=== PATIENT | male | born 1995 | race Caucasian/White ===

== ENCOUNTER 2025-03-18 09:19 | Emergency (ER) | payer OTHER, SELFPAY ==
[2025-03-18 09:32] VITALS: BP 141/99; PULSE 71; RESP 16; TEMP 36.3; O2SAT 99
--- NOTE | 2025-03-18 10:34 | ED_ITS ---
HPI - General Adult General Chief complaint: Recheck/Abnormal Lab/Rx Stated complaint: NEEDS MED REFILL Time Seen by Provider: 03/18/25 10:15 Source: patient and RN notes reviewed Mode of arrival: ambulatory Limitations: no limitations History of Present Illness HPI narrative: Patient presents today requesting a refill of his 5mg oxycodone. He has a very large ureteral stone that is due to be removed in 4 days by urology and last week was prescribed some 5 mg Oxycodone #8. He was given a small refill by his PCP as well. States his urologist was supposed to give him a refill yesterday before the weekend, but did not. He has attempted to call, but the recording says that pain medication refills will not be sent in after hours. States that due to his impending surgery and elevated liver enzymes, he has been instructed to not take any NSAIDs or tylenol containing products, only prescribed pain medications. 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 Related Data Home Medications ?Medication ?Instructions ?Recorded ?Confirmed ?Last Taken ?Type oxycodone 5 mg tablet 5 mg PO HS 03/15/25 03/18/25 Unknown History tamsulosin 0.4 mg capsule 0.4 mg PO DAILY 03/15/25 Unknown History telmisartan 20 mg tablet 20 mg PO DAILY 03/15/2503/04 Unknown History Allergies Allergy/AdvReac Type Severity Reaction Status Date / Time No Known Allergies Allergy Verified 03/18/25 09:36 [facility] Social History Social History (Reviewed 03/18/25 @ 13:18 by Roselia Wilson, ASSAULT AMPHIBIOUS VEHICLE OFFICER, PATIENT FINANCIAL ADVOCATE) Smoking status: Never smoker Alcohol intake: current Drinks per week: 2 Living arrangements: with family Spiritual care concerns: No Comments At time of signature, I have reviewed and agree with nursing past medical, surgical, social and family history unless otherwise noted. Please see nursing chart for further information. There is no relevant family history pertinent to the presenting complaint Exam Narrative: GENERAL: Well-appearing, well-nourished, and in no acute distress. HEAD: Normocephalic, atraumatic. EYES: EOMI. No redness or drainage. Conjunctivae normal. ENT: Mucous membranes pink and moist. NECK: Normal AROM. CHEST: No respiratory distress. EXTREMITIES: Normal range of motion. No edema. SKIN: Warm, dry, no rash. Capillary refill normal. NEURO: No focal deficits. Alert and oriented x3. Gait steady. PSYCH: Normal affect. No signs of depression or anxiety. Course Course Level of Care: Express Care Visit Vital Signs Vital signs: Vital Signs Temperature 97.3 F L 03/18/25 09:32 Pulse Rate 71 03/18/25 09:32 Respiratory Rate 16 03/18/25 09:32 Blood Pressure 141/99 H 03/18/25 09:32 Pulse Oximetry 99 03/18/25 09:32 Temperature 97.3 F L 03/18/25 09:32 Pulse Rate 71 03/18/25 09:32 Respiratory Rate 16 03/18/25 09:32 Blood Pressure 141/99 H 03/18/25 09:32 Pulse Oximetry 99 03/18/25 09:32 Reviewed Medical Decision Making MDM Narrative Medical decision making narrative: Patient presents today requesting a refill of his 5mg oxycodone. He has a very large ureteral stone that is due to be removed in 4 days by urology and last week was prescribed some 5 mg Oxycodone #8. He was given a small refill by his PCP as well. States his urologist was supposed to give him a refill yesterday before the weekend, but did not. He has attempted to call, but the recording says that pain medication refills will not be sent in after hours. States that due to his impending surgery and elevated liver enzymes, he has been instructed to not take any NSAIDs or tylenol containing products, only prescribed pain medications. 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 Normal physical exam at this time. Per my collaborative practice agreement, I am unable to prescribe oxycodone. I am able to prescribe [place] and Tylenol #3, but patient has been advised by his doctor not to take tylenol containing products at this time. The only pain medication that meets patient's guidelines at this time that I can provide, would be tramadol. Will provide a short course and he will call his urologist on Thursday to discuss next steps. VSS. Patient agrees with plan. Anticipatory guidance given. Differential Diagnosis Differential Diagnosis: medication refill, ureteral stone Vital Signs Vital Signs: Vital Signs Temperature 97.3 F L 03/18/25 09:32 Pulse Rate 71 03/18/25 09:32 Respiratory Rate 16 03/18/25 09:32 Blood Pressure 141/99 H 03/18/25 09:32 Pulse Oximetry 99 03/18/25 09:32 Temperature 97.3 F L 03/18/25 09:32 Pulse Rate 71 03/18/25 09:32 Respiratory Rate 16 03/18/25 09:32 Blood Pressure 141/99 H 03/18/25 09:32 Pulse Oximetry 99 03/18/25 09:32 Critical Care Time Critical Care Time Critical Care Time: No Discharge Plan Discharge Clinical Impression: Kidney stone Patient Disposition: Home Condition: Stable Additional Instructions: Take the Tramadol as prescribed. Follow up with your urologist on Thursday. Patient Language: Occitan Prescriptions: New tramadol 50 mg tablet 50 mg PO Q6H PRN (Reason: pain) Qty: 20 0RF No Action oxycodone 5 mg tablet 5 mg PO HS tamsulosin 0.4 mg capsule 0.4 mg PO DAILY telmisartan 20 mg tablet 20 mg PO DAILY Follow-up/Referrals: Huan,Domenic [Other] Time of Disposition: 10:37
== END 2025-03-18 10:46 | disposition home or self-care (01) ==
PROVIDERS: Emergency Provider Nurse Practitioner
DX: Z76.0 Encounter for issue of repeat prescription (principal); N20.0 Calculus of kidney
CPT/HCPCS: 99203; G0463

== ENCOUNTER 2025-03-22 01:03 | Day surgery (SDC) | payer OTHER, SELFPAY ==
[2025-03-15 14:29] VITALS: BMI 25.8
--- NOTE | 2025-03-15 14:30 | PC.NURSE ---
[facility] has started construction of its new state of the art ER which will open Spring 2026. With this, we anticipate parking may be a challenge for some our surgical patients and families. Parking spaces are limited but are available for all Surgical, obstetrics, and ER patients sharing this lot. If you arrive and find you are having a hard time finding a parking space, please note that we understand the challenges, please drive around the hospital and park near Hospital Entrance 1. When you enter this entrance, you can ask a volunteer to direct or take you back to the surgical waiting area to check in. We appreciate everyone?s understanding of these expected challenges while we build for your future. Report to the Outpatient Waiting Room, entrance under the green pavilion located off [address], at time _1000_ on date _[id number]_. Planned Procedure Time: _1200_.? Time changes happen often and if your time is changed the preop area will call you the afternoon before. - You and your visitor will be asked to self-screen and do not enter if you have any COVID symptoms. Please call surgeon if you need to reschedule. - A mask is optional within the hospital at this time. Patients may have clear liquids (water, carbonated beverages, clear teas, apple juice) until 3 hours prior to surgery with a maximum of 20 ounces. - No food from midnight until time of surgery and no smoking, or chewing tobacco (or any form of nicotine). No chewing gum, candy or mints. Take only the following medications with a SIP of water on the morning of surgery: ___Oxycodone if needed.____ DO NOT STOP ANY OF YOUR OTHER PRESCRIPTION MEDICATIONS PRIOR TO SURGERY EXCEPT THE FOLLOWING Hold all vitamins and supplements for 3 days per anesthesiologist. Medications to discontinue per physician Date to take last dose Please no make-up, nail jamaican, hairspray, perfume, deodorant, or body powder the day of surgery.? No jewelry (including any body piercings) or valuables the day of surgery, leave them at home.? Please take a shower or bath the night before, or the morning of, surgery with an antibacterial soap.? Wear comfortable, loose fitting clothing.? - Jewelry must be removed prior to entering the operating room.? Rings and piercings that are not removed may be cut off. - The hospital will not accept responsibility for valuables.? - Please leave all valuables, including medications, at home the day of surgery. If you are going home after surgery, a licensed scoop driver must drive you home.? - NO public transportation without another adult if you receive anesthesia. - We recommend that an adult stay with you for 24 hours following discharge. - We also recommend that you do not drive, make important decision, drink alcoholic beverages, or take any drugs that were not prescribed by your health care provider for at least 24 hours after your discharge time. Follow any additional instructions given to you from your surgeon. Telephone instructions given to _Taylor__and asked if any additional questions and then verbalized understanding. Patient advised to call surgeon office or pre surgery nurse liaison [phone] if any additional questions.
[2025-03-22] VITALS (11 sets, daily range): BP systolic 119–159; BP diastolic 56–98; PULSE 45–88; RESP 12–20; TEMP 36.4–36.8; O2SAT 58–100; BMI 25.2
--- NOTE | ~2025-03-22 | XR_ITS ---
EXAMINATION: XR retrograde pyelo w/stent RT DATE: 03/22/2025 14:54 INDICATION: Right brachiocephalic vein and internal ureteral stent placement TECHNIQUE: 2 fluoroscopic images of the abdomen and pelvis were obtained procedure performed by Dr. Donaldson. Radiologist was not present for the imaging or procedure. The amount of fluoroscopy time used during this procedure was 0.1 minutes. The dose area product was 0.039 mGym^2. COMPARISON: None. FINDINGS: Initial image demonstrates cannulation of the right ureter with wire advanced into an upper pole calyx of the right kidney and retrograde contrast injection into the right ureter and renal collecting system. Lucent filling defects in the distal right ureter which could represent ureteral stones or injected gas bubbles. Final image demonstrates placement of a right internal ureteral stent with proximal loop formed in the right renal pelvis. IMPRESSION: 1. Fluoroscopy utilized during urologic procedure including placement of a right intrarenal stent which is in expected position. See procedure note for further detail. Reviewed, dictated and finalized at location A. E OFFICER IMPRESSION: 1. Fluoroscopy utilized during urologic procedure including placement of a righ t intrarenal stent which is in expected position. See procedure note for furthe r detail.
--- OUTSIDE RECORDS SUMMARY | 2025-03-22 05:27 | XMS_ITS | Encounter Summary ---
Author Organization [facility] Healthcare Address [address] [place] [address] Care Team Providers Care Pulp And Paper Tester Name Role Phone Domenic Wade DO Primary Care Provider [phone] Reason for Visit * Reason Onset Date Comments Medical Records Request 03/15/2025 Encounter Details Date Type Department Care Team (Late st Contact Info) Description 03/15/2025 Telephone [facility] Medical Group Family Medicine [address] [phone] Domenic Wade DO [address] [address] Medical Records Request Social History Tobacco Use Types Packs/Day Years Used Date Smoking Tobacco: Never Smokeless Tobacco: Never Alcohol Use Standard Drinks/Week Comments Yes 1 (1 standard drink = 0.6 oz pur e alcohol) PHQ-2 Answer Date Recorded PHQ-2 Total Score (If total score is 3 or more points, staff should administer the PHQ-9) 0 02/28/2025 PHQ-9 Answer Date Recorded PHQ-9 Total Score 2 02/28/2025 AUDIT-C Answer Date Recorded Q1: How often do you have a drink containing alc ohol? 2-4 times a month 02/28/2025 Q2: How many drinks containi ng alcohol do you have on a typical day when you are drinking? 1 or 2 02/28/2025 Q3: How often do you have si x or more drinks on one occasion? Never 02/28/2025 Personal Safety Answer Date Recorded Have you ever been in or are you currently in a harmful physical or emotional relationship or is someone making you feel afraid or unsafe? 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 WRITER HAND * Telephone Encounter - Marge Spivey - 03/15/2025 2:47 PM CST Medical Records Request Request Type: Records Request Practice Will Complete What records are being requested:EKG 02/28/25 Who will the records be sent to (if being sent to another doctor, list the doctor's name and specialty)? [facility] outpatient surgery Date Needed: mauri Delivery Method: Fax Fax number to use for return of records: [phone] Additional Comments/Concerns: pJ with [facility] called stating patient has an upcoming procedure and they would like a copy of the EKG. Does the message need to be routed? Yes-Action Needed WRITER HAND documented in this encounter Plan of Treatment Not on file documented as of this encounter Visit Diagnoses Not on filedocumented in this encounter Care Teams Pulp And Paper Tester Relationship Specialty Start Date End Date Domenic Wade DO [address] [facility] [address] [place] [address] PCP - General Family Medicine 02/28/25 documented as of this encounter
--- OUTSIDE RECORDS SUMMARY | 2025-03-22 05:28 | XMS_ITS | Clinical Summary ---
Author Organization [facility] Address [address] [place] [id number] Care Team Providers Care Import/Export Administrator Name Role Phone Gen Garrett MD Primary Care Provider [phone] Allergies No known active allergies Medications No known medications Active Problems No known active problems Social History Tobacco Use Types Packs/Day Years Used Date Smoking Tobacco: Never Tobacco Cessation:Counseling Given: No Alcohol Use Standard Drinks/Week Comments Yes 0 (1 standard drink = 0.6 oz pur e alcohol) Sex and Gender Information Value Date Recorded Sex Assigned at Not on file Legal Sex Male 5:58 PM BELT LINE FEEDER Gender Identity Not on file Sexual Orientation Not on file Last Filed Vital Signs Vital Sign Reading Time Taken Comments Blood Pressure 147/93 04/20/2020 6:09 PM BELT LINE FEEDER Pulse 80 04/20/2020 6:09 PM BELT LINE FEEDER Temperature 37 C (98.6 F) 04/20/2020 6:09 PM BELT LINE FEEDER Respiratory Rate - - Oxygen Saturation 98% 04/20/2020 6:09 PM BELT LINE FEEDER Inhaled Oxygen Concentration - - Weight 83.9 kg (185 lb) 04/20/2020 6:09 PM BELT LINE FEEDER Height 182.9 cm (6') 04/20/2020 6:09 PM BELT LINE FEEDER Body Mass Index 25.09 04/20/2020 6:09 PM BELT LINE FEEDER Plan of Treatment Health Maintenance Due Date Last Done Comments DTAP/TDAP/TD VACCINES (1 - Tdap) 2012 HEPATITIS B VACCINES (1 of 3 - 19+ 3-dose series) 2012 HPV VACCINES (1 - 3-dose SCDM series) 2020 INFLUENZA VACCINE (#1) 2024 01/03/2017, 2015 Insurance OUT OF STATE Care Teams Import/Export Administrator Relationship Specialty Start Date End Date Gen Garrett MD [address] [place] [address] PCP - General 04/20/20
--- OUTSIDE RECORDS SUMMARY | 2025-03-22 05:28 | XMS_ITS | Clinical Summary ---
Author Organization [facility] Address [address] [place] [address] Care Team Providers Care Maple Products Supervisor Name Role Phone Gen Garrett MD Primary Care Provider Source Comments [facility],non-owned Affiliates and Associated Physician Practices is amultiple site organization consisting of ambulatory clinics and hospital sitesin [place], [place] and [place]. This disclosure is being madepursuant to the Care Everywhere program and may not contain all information available regarding this patient. Last updated 18.[facility] Allergies No known active allergies Medications * Be aware that medications may not be up to date on this document. Alwaysverify current medications with the patient. HYDROcodone-acet aminophen (NORCO) 5-325 MG tablet Take 1 tablet by mouth every 4 hours as needed for Pain 10 tablet 07/28/2018 Active Social History Tobacco Use Types Packs/Day Years Used Date Smoking Tobacco: Never Smokeless Tobacco: Never Alcohol Use Standard Drinks/Week Comments Yes 0 (1 standard drink = 0.6 oz pur e alcohol) social Sex and Gender Information Value Date Recorded Sex Assigned at Not on file Legal Sex Male 7:33 PM CDT Gender Identity Not on file Sexual Orientation Not on file Last Filed Vital Signs Vital Sign Reading Time Taken Comments Blood Pressure 135/69 07/28/2018 11:42 PM CDT Pulse 70 07/28/2018 11:42 PM CDT Temperature 36.4 C (97.5 F) 07/28/2018 7:46 PM CDT Respiratory Rate 16 07/28/2018 11:42 PM CDT Oxygen Saturation 97% 07/28/2018 11:42 PM CDT Inhaled Oxygen Concentration - - Weight 79.4 kg (175 lb) 07/28/2018 7:46 PM CDT Height 182.9 cm (6') 07/28/2018 7:46 PM CDT Body Mass Index 23.73 07/28/2018 7:46 PM CDT Plan of Treatment Upcoming Encounters Date Type Department Care Team (Late st Contact Info) Description 04/03/2025 2:30 PM UNDERWATER PHOTOGRAPHER Office Visit [facility] - [address] [place] [address] Hazel Francisco PA-C [address] [place] [id number] Health Maintenance Due Date Last Done Comments HIV SCREENING 2008 HEPATITIS C SCREENING 05/05/2011 DTAP/TDAP/TD VACCINES (1 - Tdap) 2012 HEPATITIS B VACCINE (1 of 3 - 19+ 3-dose series) 2012 HPV VACCINE (1 - 3-dose SCDM series) 2020 DEPRESSION SCREENING 05/04/2024 COVID-19 VACCINE (1 - 2024-2 6 season) 2025 INFLUENZA VACCINE (#1) 2025 ZOSTER VACCINE (1 of 2) 2043 HIB VACCINE Aged Out No longer eligi ble based on patient's age to complete this topic MENINGOCOCCAL (Group B) VACC INE SHARED DECISION-MAKING Aged Out No longer eligibl e based on patient's age to complete this topic MENINGOCOCCAL GROUPS A/C/Y/W VACCINE Aged Out No longer eligible b ased on patient's age to complete this topic PNEUMOCOCCAL VACCINE Aged Out No long er eligible based on patient's age to complete this topic Insurance [facility] Care Teams Maple Products Supervisor Relationship Specialty Start Date End Date Gen Garrett MD PCP - General Family Medicine 07/28/18
--- OUTSIDE RECORDS SUMMARY | 2025-03-22 05:28 | XMS_ITS | Clinical Summary ---
Author Organization [facility] Address [address] [facility] [address] [place] [phone] Phone Care Team Providers Care Brakeshoe Repairer Name Role Phone SelamDomenic moreno Primary Care Provider Allergies Active Allergy Reactions Criticality Noted Date Comments Wasp Venom Swelling High 11/29/2019 Medications dextroamphetamine -amphetamine XR (ADDERALL XR) 30 mg 24 hr capsuleIndication s:Attention deficit hyperactivity disorder (ADHD), combined type Take 1 capsule (30 mg total) by mouth every morning 30 capsule 11/29/19 20 Active Additional Information Patient not taking.Reported on 02/28/2025 ASHWAGANDHA ROOT EXTRACT ORAL Take by mouth Act regis telmisartan (MICARDIS) 20 mg tabletIndications :Essential hypertension Take 1 tablet (20 mg total) by mouth daily 90 tablet 3 02/29/20 25 026 Active ketorolac (TORADOL) 10 mg tablet Take 1 tablet (10 mg total) by mouth every 6 (six) hours as needed for pain 20 tablet 03/10/20 25 Active tamsulosin (FLOMAX) 0.4 mg extended release capsule Take 1 capsule (0.4 mg total) by mouth daily 14 capsule 03/10/20 25 Active oxyCODONE (ROXICODONE) 5 mg immediate release tabletIndications :Pain Take 1 tablet (5 mg total) by mouth every 6 (six) hours as needed for pain 8 tablet 03/13/20 25 Active oxyCODONE (ROXICODONE) 5 mg immediate release tabletIndications :Pain Take 1 tablet (5 mg total) by mouth every 6 (six) hours as needed for pain 8 tablet 03/10/20 25 025 Discontin ued(Reord er) Active Problems Problem Noted Date Diagnosed Date Essential hypertension 02/28/2025 Assessment & Plan (02/28/2025 3:21 PM CDT): new diagnosis uncontrolled Goal <140/90 Current regimen: none Medication changes: start telmisartan 20 mg daily -AVOID THIAZIDES due to history of recurrent nephrolithiasis Baseline EKG today NSR, no ST changes. -order TSH, CMP today. Repeat BMP 1 week after starting medication for renal monitoring. -Discussed DASH diet and monitoring - Follow up in 1 month Orders: telmisartan (MICARDIS) 20 mg tablet; Take 1 tablet (20 mg total) by mouth daily Thyroid Function Campbell; Future Lipid panel; Future Comprehensive metabolic panel; Future ECG 12 lead Basic metabolic panel; Future ADHD (attention deficit hype ractivity disorder), combined type 04/16/2015 Encounters Date Type Department Care Team Description 03/15/2025 Telephone [facility] Family Medicine [address] [place] [phone] Domenic Wade DO Medical Records Request 03/13/2025 Telephone [facility] [address] [place] [phone] Domenic Wade DO 03/10/2025 10:18 AM GEOTECHNICIAL PROPERTIES TECHNICIAN - 03/10/2025 12:15 PM [facility] Emergency [address] [address] Transaminitis (Primary Dx); Hydronephrosis, unspecified hydronephrosis type Discharge Disposition: Discharge to home or self care 03/10/2025 8:11 AM GEOTECHNICIAL PROPERTIES TECHNICIAN - 03/10/2025 11:59 PM GEOTECHNICIAL PROPERTIES TECHNICIAN Hospital Encounter [address] [address] Elevated LFTs Discharge Disposition: Discharge to home or self care 03/10/2025 Results Follow-Up [facility] [address] [place] [phone] Domenic Wade DO US RUQ, Acetaminophen level, Liver/kidney microsome type 1 antibody, Additional followed-up results: 2 03/08/2025 5:05 PM GEOTECHNICIAL PROPERTIES TECHNICIAN Lab [facility] [address] [place] [phone] Elevated LFTs 03/08/2025 Results Follow-Up [address] [phone] Domenic Wade DO Comprehensive metabolic panel, eGFR 03/07/2025 2:35 PM GEOTECHNICIAL PROPERTIES TECHNICIAN Lab [facility] [address] [place] [phone] Elevated LFTs 03/01/2025 Results Follow-Up [address] [phone] Domenic Wade DO Comprehensive metabolic panel, Lipid panel, Thyroid Function Campbell, eGFR 02/28/2025 3:15 PM CDT Lab [facility] [address] [place] [phone] Essential hypertension 02/28/2025 2:30 PM CDT Office Visit [address] [phone] Domenic Wade DO Annual physical exam (Primary Dx); Essential hypertension; Screening for lipid disorders from Last 3 Months Immunizations Immunization Administration Dates Next Due Influenza, Quadrivalent, Spl it, Intramuscular 03/26/2019,02/20/2016 Influenza, Quadrivalent, Spl it, Preservative Free, Intramuscular 03/26/2019,02/26/2018,01/03/2017 Influenza, Unspecified 02/01/2025(Deferr ed: Patient Refused),02/02/2024 PPD TEST 08/20/2019,08/14/2018 Surgical History Surgery Date Site/Laterality Comments TONSILLECTOMY/ADENOIDECTOMY 1999 KIDNEY STONE SURGERY 2016 Family History Medical History Relation Name Comments No Known Problems Father Scleroderma Maternal Grandfather Arthritis Mother Ben's thyroiditis Mother Psoriasis Mother Diabetes Paternal Grandfather Hypertension Paternal Grandfather Scleroderma Paternal Grandfather Diabetes Paternal Grandmother Hypertension Paternal Grandmother Relation Name Status Comments Father Alive Maternal Grandfather Maternal Grandmother Mother Alive Paternal Grandfather Alive Paternal Grandmother Alive Social History Tobacco Use Types Packs/Day Years Used Date Smoking Tobacco: Never Smokeless Tobacco: Never Tobacco Cessation:Counseling Given: Not Answered Alcohol Use Standard Drinks/Week Comments Yes 1 [...] Industry Job Start Date Job End Date [employer] Not on file Not on file Not on file Last Filed Vital Signs Vital Sign Reading Time Taken Comments Blood Pressure 131/85 03/10/2025 12:00 PM GEOTECHNICIAL PROPERTIES TECHNICIAN Pulse 52 03/10/2025 12:00 PM GEOTECHNICIAL PROPERTIES TECHNICIAN Temperature 36.8 C (98.2 F) 03/10/2025 9:05 AM GEOTECHNICIAL PROPERTIES TECHNICIAN Respiratory Rate 18 03/10/2025 12:00 PM GEOTECHNICIAL PROPERTIES TECHNICIAN Oxygen Saturation 100% 03/10/2025 12:00 PM GEOTECHNICIAL PROPERTIES TECHNICIAN Inhaled Oxygen Concentration - - Weight 86.2 kg (190 lb) 03/10/2025 9:20 AM GEOTECHNICIAL PROPERTIES TECHNICIAN Height 180.3 cm (5' 11) 02/28/2025 2:14 PM CDT Body Mass Index 26.5 02/28/2025 2:14 PM CDT Plan of Treatment Health Maintenance Due Date Last Done Comments DTaP/Tdap/Td Vaccine (1 - Tdap) 2004 Varicella Vaccines (1 of 2 - 13+ 2-dose series) 2006 Hepatitis B Screening 2011 HPV Vaccines (1 - 3-dose SCDM series) 2020 Covid-19 Vaccine (3 - season) 2025 06/18/2020, 05/16/2020 Influenza Vaccine (#1) 2025 , 03/26/2019, 03/26/2019, Additional history exists Depression Screening 02/28/2026 02/28/2025, 02/28/2025, 11/29/2019 Regular Well Visit/Exam 18-64 02/28/2026 02/28/2025 Hepatitis C Screening Completed 03/08/2025 Pneumococcal vaccine <65 Aged Out No longer eligible based on patient's age to complete this topic Procedures Procedure Name Priority Date/Time Associated Diagnosis Comments CT ABDOMEN PELVIS W CONTRAST ED 03/10/2025 10:02 AM GEOTECHNICIAL PROPERTIES TECHNICIAN URINALYSIS, MICROSCOPIC ONLY STAT 03/10/2025 9:26 AM GEOTECHNICIAL PROPERTIES TECHNICIAN URINALYSIS AND REFLEX TO MICROSCOPIC AND CULTURE STAT 03/10/2025 9:26 AM GEOTECHNICIAL PROPERTIES TECHNICIAN EGFR STAT 03/10/2025 9:23 AM GEOTECHNICIAL PROPERTIES TECHNICIAN DIFFERENTIAL AUTO STAT 03/10/2025 9:2 3 AM GEOTECHNICIAL PROPERTIES TECHNICIAN LIPASE STAT 03/10/2025 9:23 AM GEOTECHNICIAL PROPERTIES TECHNICIAN COMPREHENSIVE METABOLIC PANEL STAT 03/10/2025 9:23 AM GEOTECHNICIAL PROPERTIES TECHNICIAN CBC WITH AUTO DIFFERENTIAL STAT 03/10/2025 9:23 AM GEOTECHNICIAL PROPERTIES TECHNICIAN US RUQ Schedule Routine, Read Routine (OP Routine) 03/10/2025 9:11 AM GEOTECHNICIAL PROPERTIES TECHNICIAN Elevated LFTs SMOOTH MUSCLE ANTIBODY, QUALITATIVE Routine 03/08/2025 5:28 PM GEOTECHNICIAL PROPERTIES TECHNICIAN Elevated LFTs LIVER/KIDNEY MICROSOME TYPE 1 AB Routine 03/08/2025 5:28 PM GEOTECHNICIAL PROPERTIES TECHNICIAN Elevated LFTs ACETAMINOPHEN LEVEL Routine 03/08/2025 5 :28 PM GEOTECHNICIAL PROPERTIES TECHNICIAN Elevated LFTs HEPATITIS PANEL, ACUTE Routine 03/08/2025 5:28 PM GEOTECHNICIAL PROPERTIES TECHNICIAN Elevated LFTs IRON PROFILE W/ IBC Routine 03/07/2025 2 :39 PM GEOTECHNICIAL PROPERTIES TECHNICIAN Elevated LFTs EGFR Routine 03/07/2025 2:39 PM GEOTECHNICIAL PROPERTIES TECHNICIAN Elevated LFTs COMPREHENSIVE METABOLIC PANEL Routine 03/07/2025 2:39 PM GEOTECHNICIAL PROPERTIES TECHNICIAN Elevated LFTs EGFR Routine 02/28/2025 3:30 PM CDT Essential hypertension THYROID FUNCTION CASCADE Routine 02/28/2025 3:30 PM CDT Essential hypertension LIPID PANEL Routine 02/28/2025 3:30 PM CDT Essential hypertension COMPREHENSIVE METABOLIC PANEL Routine 02/28/2025 3:30 PM CDT Essential hypertension ECG 12-LEAD Routine 02/28/2025 2:42 PM CDT Essential hypertension from Last 3 Months Results * CT Abdomen Pelvis W Contrast (03/10/2025 10:02 AM GEOTECHNICIAL PROPERTIES TECHNICIAN) Anatomical Region Laterality Modality Body N/A Computed Tomogra phy 03/10/2025 10:1 8 AM GEOTECHNICIAL PROPERTIES TECHNICIAN Impressions 03/10/2025 10:18 AM GEOTECHNICIAL PROPERTIES TECHNICIAN 1. Mild right hydronephrosis and hydroureter. No distal ureteral calculus seen. 2. Extensive bilateral urolithiasis, the largest a calculus right renal pelvis 1.7 seen with mild urothelial enhancement. 3. Few small colonic diverticula, no evidence of acute diverticulitis. Electronically signed by: Sylvester Petty M.D. Narrative 03/10/2025 10:18 AM GEOTECHNICIAL PROPERTIES TECHNICIAN EXAM DESCRIPTION: CT ABDOMEN PELVIS W CONTRAST REASON FOR STUDY: Abdominal pain, acute, nonlocalized right sided abdominal pain, elevated liver enzymes TECHNIQUE: CT scan of the abdomen and pelvis performed with intravenous and without oral contrast using helical scanning technique. Reconstructed coronal and sagittal MPR images reviewed. All images stored on PACS. Automated exposure control was used as a dose optimization technique for this examination. COMPARISON: Right upper quadrant ultrasound 03/10/2025. FINDINGS: LOWER CHEST: Lung bases are predominantly clear. There is no pleural effusion. ? LIVER: The liver size and contour normal. No focal hepatic lesion. ? GALLBLADDER: No calcified gallstones are overt inflammatory change. ? BILE DUCTS: No biliary ductal dilation. ? SPLEEN: Spleen size is normal. There is no focal splenic lesion. ? PANCREAS: No pancreatic mass or inflammatory change. ? ADRENALS: Normal. ? KIDNEYS/URINARY TRACT: Bilateral renal calculi are noted, the largest in the mid right kidney 1.7 cm. Multiple additional calculi throughout the right kidney in the upper, mid and lower pole measuring up to 0.6 cm. Calculi in the mid left kidney measuring up to 0.7 cm. No ureteral calculi. There is mild right hydronephrosis and hydroureter with the ureter dilated throughout although no distal ureteral calculi are seen. There is fluid in urinary bladder. No urinary bladder mass or calculus. There is some mild right renal pelvis and proximal ureteral enhancement and thickening. ? GI: No evidence of bowel obstruction. Mild sigmoid colon diverticulosis. The terminal ileum and the appendix are normal. The stomach and duodenum are normal. No abnormal bowel thickening. PERITONEUM: No ascites or free air. No mesenteric mass or lymphadenopathy. RETROPERITONEUM: No retroperitoneal mass or lymphadenopathy. REPRODUCTIVE: No significant abnormalities are seen. VASCULATURE: Abdominal aorta is nonaneurysmal. MUSCULOSKELETAL: Bone windows demonstrate no acute or aggressive osseous abnormality. OTHER: No other significant abnormality. Procedure Note Sylvester Petty MD - 03/10/2025 EXAM DESCRIPTION: CT ABDOMEN PELVIS W CONTRAST REASON FOR STUDY: Abdominal pain, acute, nonlocalized right sided abdominal pain, elevated liver enzymes TECHNIQUE: CT scan of the abdomen and pelvis performed with intravenous and without oral contrast using helical scanning technique. Reconstructed coronal and sagittal MPR images reviewed. All images stored on PACS. Automated exposure control was used as a dose optimization technique for this examination. COMPARISON: Right upper quadrant ultrasound 03/10/2025. FINDINGS: LOWER CHEST: Lung bases are predominantly clear. There is no pleural effusion. ? LIVER: The liver size and contour normal. No focal hepatic lesion. ? GALLBLADDER: No calcified gallstones are overt inflammatory change. ? BILE DUCTS: No biliary ductal dilation. ? SPLEEN: Spleen size is normal. There is no focal splenic lesion. ? PANCREAS: No pancreatic mass or inflammatory change. ? ADRENALS: Normal. ? KIDNEYS/URINARY TRACT: Bilateral renal calculi are noted, the largest in the mid right kidney 1.7 cm. Multiple additional calculi throughout the right kidney in the upper, mid and lower pole measuring up to 0.6 cm. Calculi in the mid left kidney measuring up to 0.7 cm. No ureteral calculi. There is mild right hydronephrosis and hydroureter with the ureter dilated throughout although no distal ureteral calculi are seen. There is fluid in urinary bladder. No urinary bladder mass or calculus. There is some mild right renal pelvis and proximal ureteral enhancement and thickening. ? GI: No evidence of bowel obstruction. Mild sigmoid colon diverticulosis. The terminal ileum and the appendix are normal. The stomach and duodenum are normal. No abnormal bowel thickening. PERITONEUM: No ascites or free air. No mesenteric mass or lymphadenopathy. RETROPERITONEUM: No retroperitoneal mass or lymphadenopathy. REPRODUCTIVE: No significant abnormalities are seen. VASCULATURE: Abdominal aorta is nonaneurysmal. MUSCULOSKELETAL: Bone windows demonstrate no acute or aggressive osseous abnormality. OTHER: No other significant abnormality. IMPRESSION: 1. Mild right hydronephrosis and hydroureter. No distal ureteral calculus seen. 2. Extensive bilateral urolithiasis, the largest a calculus right renal pelvis 1.7 seen with mild urothelial enhancement. 3. Few small colonic diverticula, no evidence of acute diverticulitis. Electronically signed by: Sylvester Petty M.D. [facility] CT PROCEDURES Final Re sult * (ABNORMAL) Urinalysis reflex to microscopic and culture Urine (03/10/2025 9:26 AM GEOTECHNICIAL PROPERTIES TECHNICIAN) Color, ur Straw Yellow Clarity, ur Cloudy(A) Clear NANCY Specific gravity, ur 1.016 1.003 - 1.030 [facility] pH, urine 7.0 [facility] Comment: Interpretive Data U rine pH is affected by diet, medications, systemic acid-base disturbances, and renal tubular function. pH may affect urinary stone formation. For example, urine pH below 6.0 may help reduce the tendency for calcium phosphate stones and pH greater than 6.0 may reduce the tendency for uric acid stone formation. Source: [facility] Current Interpretive Data was last revised on 2017 Protein, ur ql Negative Negative [facility] Glucose, ur ql Negative Negative [facility] Ketones, ur Trace Negative [facility] Bilirubin, ur Negative Negative [facility] Blood, ur 3+(A) Negative [facility] Urobilinogen, ur <2.0 <2.0 mg/dL [facility] Nitrite, ur Negative Negative [facility] Leukocyte esterase, ur Negative Negative [facility] UA reflex comment Reflex to microscopic UA will be performed. [facility] Urine 03/10/2025 9:26 AM GEOTECHNICIAL PROPERTIES TECHNICIAN 03/10/2025 9:28 AM GEOTECHNICIAL PROPERTIES TECHNICIAN [facility] MICROBIOLOGY - GENERAL ORDERABLES Final Result Performing Organization Address [facility] Co de Phone Number [address] [place] [address] * (ABNORMAL) Urinalysis, microscopic only (03/10/2025 9:26 AM GEOTECHNICIAL PROPERTIES TECHNICIAN) WBC, ur 0-5 0 - 5 /HPF RBC, ur >50(A) 0 - 2 /HPF [facility] Mucous, ur Present(A) [facility] Culture Reflex Comment Reflex conditions for urine culture (WBC >10) not met. [facility] Urine 03/10/2025 9:26 AM GEOTECHNICIAL PROPERTIES TECHNICIAN 03/10/2025 9:28 AM GEOTECHNICIAL PROPERTIES TECHNICIAN [facility] URINE ORDERABLES Final Result Performing Organization Address [facility] Co de Phone Number [place] [phone] [facility] [address] [place] [address] * eGFR (03/10/2025 9:23 AM GEOTECHNICIAL PROPERTIES TECHNICIAN) [facility] eGFR >90 >=60 mL/min/1. 73 m2 Comment: Interpretive Data Reference Interval Normal >/= 90 mL/min/1.73m2 Mildly decreased* 60 - 89 mL/min/1.73m2 Mildly to moderately decreased 45 - 59 mL/min/1.73m2 Moderately to severely decreased 30 - 44 mL/min/1.73m2 Severely decreased 15 - 29 mL/min/1.73m2 Kidney Failure < 15 mL/min/1.73m2 *Relative to young adult level Estimated glomerular filtration rate is determined by the 2020 CKD-EPI equation recommended by the National Kidney Foundation (A Unifying Approach to GFR Estimation: Recommendations of the NKF-ASK Task Force on Reassessing the Inclusion of Race in Diagnosing Kidney Disease, JASN 2020). The CKD-EPI equation should not be used for patients with unstable renal function and has not been validated in children and those over 70. Current interpretive data was last reviewed 2021. Blood 03/10/2025 9:23 AM GEOTECHNICIAL PROPERTIES TECHNICIAN 03/10/2025 9:28 AM GEOTECHNICIAL PROPERTIES TECHNICIAN [facility] BLOOD ORDERABLES Final Result [facility]ANC[facility] [address] [facility] [place] [address] * Differential, auto (03/10/2025 9:23 AM GEOTECHNICIAL PROPERTIES TECHNICIAN) [facility] Neutrophil abs 3.32 1.50 - 6.50 K/cumm Imm gran abs 0.02 0.00 - 0.10 K/cumm [facility] Lymphocyte abs 1.95 0.80 - 3.30 K/cumm [facility] Monocyte abs 0.53 0.20 - 0.80 K/cumm [facility] Eosinophil abs 0.09 0.00 - 0.50 K/cumm [facility] Basophil abs 0.06 0.00 - 0.10 K/cumm [facility] Neutrophil pct 55.6 % [facility] Comment: Interpretive Data Percent cell count reference ranges are not reported, since discordance with absolute values may lead to misinterpretation of CBC data. Current Interpretive Data was last revised on 2017. Imm gran pct 0.3 % [facility] Comment: Interpretive Data Percent cell count reference ranges are not reported, since discordance with absolute values may lead to misinterpretation of CBC data. Current Interpretive Data was last revised on 2017. Lymphocyte pct 32.7 % [facility] Comment: Interpretive Data Percent cell count reference ranges are not reported, since discordance with absolute values may lead to misinterpretation of CBC data. Current Interpretive Data was last revised on 2017. Monocyte pct 8.9 % [facility] Comment: Interpretive Data Percent cell count reference ranges are not reported, since discordance with absolute values may lead to misinterpretation of CBC data. Current Interpretive Data was last revised on 2017. Eosinophil pct 1.5 % [facility] Comment: Interpretive Data Percent cell count reference ranges are not reported, since discordance with absolute values may lead to misinterpretation of CBC data. Current Interpretive Data was last revised on 2017. Basophil pct 1.0 % [facility] Comment: Interpretive Data Percent cell count reference ranges are not reported, since discordance with absolute values may lead to misinterpretation of CBC data. Current Interpretive Data was last revised on 2017. Blood 03/10/2025 9:23 AM GEOTECHNICIAL PROPERTIES TECHNICIAN 03/10/2025 9:28 AM GEOTECHNICIAL PROPERTIES TECHNICIAN [facility] BLOOD ORDERABLES Final Result Performing Organization Address City/State/[facility] Co de Phone Number [facility] [address] [facility] [place] [address] * CBC with auto differential (03/10/2025 9:23 AM GEOTECHNICIAL PROPERTIES TECHNICIAN) WBC 5.97 3.80 - 9.90 K/cumm Hgb 15.7 13.0 - 17.5 g/dL [facility] Hct 47.6 38.9 - 50.3 % [facility] Plt 219 150 - 400 K/cumm [facility] MPV 10.6 9.1 - 12.3 fL [facility] RBC 5.26 4.30 - 5.80 M/cumm [facility] MCV 90.5 81.3 - 96.4 fL [facility] MCH 29.8 27.1 - 33.3 pg [facility] MCHC 33.0 32.3 - 35.7 g/dL [facility] RDW CV 12.7 11.1 - 14.9 % [facility] RDW SD 42.1 35.7 - 48.1 fL [facility] NRBC abs 0.00 0.00 - 0.01 K/cumm [facility] Blood Venous blood specimen / Unknown 03/10/2025 9:23 AM GEOTECHNICIAL PROPERTIES TECHNICIAN 03/10/2025 9:28 AM GEOTECHNICIAL PROPERTIES TECHNICIAN [facility] BLOOD ORDERABLES Final Result Performing Organization Address City/[facility]/ZIP Co de Phone Number [address] [address] * Lipase (03/10/2025 9:23 AM GEOTECHNICIAL PROPERTIES TECHNICIAN) [facility] Lipase 20 10 - 99 Units/L Blood Venous blood specimen / Unknown 03/10/2025 9:23 AM GEOTECHNICIAL PROPERTIES TECHNICIAN 03/10/2025 9:28 AM GEOTECHNICIAL PROPERTIES TECHNICIAN [facility] BLOOD ORDERABLES Final Result Performing Organization Address [facility] de Phone Number [address] [address] * (ABNORMAL) Comprehensive metabolic panel (03/10/2025 9:23 AM GEOTECHNICIAL PROPERTIES TECHNICIAN) [facility] Sodium 140 135 - 145 mmol/L Potassium, pl 4.3 3.3 - 4.9 mmol/L [facility] Chloride 103 97 - 110 mmol/L [facility] CO2 27 22 - 32 mmol/L [facility] Anion gap 10 2 - 15 mmol/L [facility] BUN 16 6 - 25 mg/dL [facility] Creatinine 0.87 0.80 - 1.30 mg/dL [facility] Glucose 99 70 - 199 mg/dL [facility] Comment: Interpretive Data Fasting glucose >/= 126 mg/dl is diagnostic for diabetes. Fasting is defined as no caloric intake for at least 8 hours. Fasting glucose between 100 mg/dl to 125 mg/dl is diagnostic of prediabetes. In a patient with classic symptoms of hyperglycemia or hyperglycemic crisis, a random glucose >/= 200 mg/dl is diagnostic for diabetes. In the absence of unequivocal hyperglycemia, results should be confirmed by repeat testing. The classification and Diagnosis of Diabetes Diabetes Care 2021; 46: S19-S40. Current interpretive data was last revised 2022. Calcium 9.5 8.5 - 10.3 mg/dL [facility] Bilirubin, total 0.6 0.1 - 1.2 mg/dL [facility] Protein, pl 7.1 6.5 - 8.5 g/dL [facility] Albumin 4.7 3.5 - 5.0 g/dL [facility] Alk phos 46 40 - 130 Units/L [facility] ALT 107(H) 7 - 55 Units/L [facility] AST 185(H) 10 - 50 Units/L [facility] Blood 03/10/2025 9:23 AM GEOTECHNICIAL PROPERTIES TECHNICIAN 03/10/2025 9:28 AM GEOTECHNICIAL PROPERTIES TECHNICIAN [facility] BLOOD ORDERABLES Final Result Performing Organization Address City/State/[facility] Co de Phone Number NANCY [address] [facility] [place] [address] * US RUQ (03/10/2025 9:11 AM GEOTECHNICIAL PROPERTIES TECHNICIAN) Anatomical Region Laterality Modality Abdomen N/A Ultrasound 03/10/2025 9:13 AM GEOTECHNICIAL PROPERTIES TECHNICIAN Impressions 03/10/2025 9:13 AM GEOTECHNICIAL PROPERTIES TECHNICIAN 1. No evidence of acute abnormality. 2. Echogenic right renal calculi measuring up to 1.1 cm. Electronically signed by: Sylvester Petty M.D. Narrative 03/10/2025 9:13 AM GEOTECHNICIAL PROPERTIES TECHNICIAN EXAM DESCRIPTION: US RUQ REASON FOR STUDY: acute elevated LFTs TECHNIQUE: Ultrasound of the right upper quadrant of the abdomen was performed with grayscale and color Doppler. COMPARISON: None. FINDINGS: PANCREAS: Visualized portions of the pancreas are within normal limits. Portions of the pancreatic body and tail are obscured due to bowel gas. ? LIVER: The liver is?normal in echogenicity. Liver measures 15.1 cm.?No focal hepatic lesions are seen.?Antegrade direction of flow shown in the main portal vein. ? GALLBLADDER: No echogenic gallstones, gallbladder wall thickening, or pericholecystic fluid. No positive sonographic Solitario's sign reported. BILIARY: There is no intrahepatic biliary ductal dilatation. The common bile duct measures 0.4 cm in diameter. ? RIGHT KIDNEY: Right kidney is 11.7 cm in length. There is no hydronephrosis. The echogenicity is normal. Multiple echogenic calculi, these measure 1.1 cm in the mid pole and 0.8 cm lower pole. ? OTHER: No other significant finding. Procedure Note Sylvester Petty MD - 03/10/2025 EXAM DESCRIPTION: US RUQ REASON FOR STUDY: acute elevated LFTs TECHNIQUE: Ultrasound of the right upper quadrant of the abdomen was performed with grayscale and color Doppler. COMPARISON: None. FINDINGS: PANCREAS: Visualized portions of the pancreas are within normal limits. Portions of the pancreatic body and tail are obscured due to bowel gas. ? LIVER: The liver is?normal in echogenicity. Liver measures 15.1 cm.?No focal hepatic lesions are seen.?Antegrade direction of flow shown in the main portal vein. ? GALLBLADDER: No echogenic gallstones, gallbladder wall thickening, or pericholecystic fluid. No positive sonographic Solitario's sign reported. BILIARY: There is no intrahepatic biliary ductal dilatation. The common bile duct measures 0.4 cm in diameter. ? RIGHT KIDNEY: Right kidney is 11.7 cm in length. There is no hydronephrosis. The echogenicity is normal. Multiple echogenic calculi, these measure 1.1 cm in the mid pole and 0.8 cm lower pole. ? OTHER: No other significant finding. IMPRESSION: 1. No evidence of acute abnormality. 2. Echogenic right renal calculi measuring up to 1.1 cm. Electronically signed by: Sylvester Petty M.D. us Domenic Wade DO IMG US PROCEDURES Final Resul t * Liver/kidney microsome type 1 antibody (03/08/2025 5:28 PM GEOTECHNICIAL PROPERTIES TECHNICIAN) Pathologist [facility] LKM-1 <5.0 <=20.0 (Negative) Units [place] ref Lab Comment: Test Performed by: [facility] [address] [place] [address] Laser Set Up Operator: Corrie Lopez Ph.D.; CLIA# [id number] Testing performed by: [facility], [address] [place] [address]., [id number] Blood 03/08/2025 5:28 PM GEOTECHNICIAL PROPERTIES TECHNICIAN 03/08/2025 5:30 PM GEOTECHNICIAL PROPERTIES TECHNICIAN [place] LAB BLOOD ORDERABLES Final Re sult Performing Organization Address City/[facility]/ZIP Co de Phone Number NANCY [address] [place] [address] [place] ref Lab * Smooth muscle antibody, qualitative (03/08/2025 5:28 PM GEOTECHNICIAL PROPERTIES TECHNICIAN) [facility] Anti-smooth muscle Negative Negative Comment:Testing performed by : [facility], [address] [facility] [place] [address] Blood 03/08/2025 5:28 PM GEOTECHNICIAL PROPERTIES TECHNICIAN 03/08/2025 7:15 PM GEOTECHNICIAL PROPERTIES TECHNICIAN [place] LAB BLOOD ORDERABLES Final Re sult NANCY [address] [address] * Hepatitis panel, acute Blood (03/08/2025 5:28 PM GEOTECHNICIAL PROPERTIES TECHNICIAN) [facility] Hep A IgM Nonreactive Nonreactive Comment: Interpretive Data: If Hep A IgM Ab is reported as Equivocal, a new sample should be drawn in two weeks for testing. Current interpretive data was last revised on 19. Hep B core IgM Nonreactive Nonreactive NANCY Comment: Interpretive Data If HepB Core IgM Ab is reported as Equivocal, a new sample should be drawn in two weeks for testing. Current interpretive data was last revised on 19. Hep C Ab Nonreactive Nonreactive [facility] Comment: Antibodies to HCV not detected. Does NOT exclude the possibility of recent exposure to HCV. Current interpretive data was last revised on 22 Interpretive Data Nonreactive: Antibodies to HCV not detected. Does NOT exclude the possibility of recent exposure to HCV. Equivocal: Equivocal for HCV antibodies. Supplemental molecular testing will be automatically performed to determine infection status in accordance with current CDC screening recommendations. Reactive: Positive for HCV antibodies. This may represent current or past HCV infection. Supplemental molecular testing will be automatically performed to determine current infection status in accordance with current CDC screening recommendations. Interpretive data was last revised on 2019. HepBsAg Nonreactive Nonreactive [facility] Blood 03/08/2025 5:28 PM GEOTECHNICIAL PROPERTIES TECHNICIAN 03/08/2025 6:35 PM GEOTECHNICIAL PROPERTIES TECHNICIAN Domenic Wade LAB MICROBIOLOGY - GENERAL OR DERABLES Final Result Performing Organization Address [facility] Co de Phone Number [address] [place] [address] * Acetaminophen level (03/08/2025 5:28 PM GEOTECHNICIAL PROPERTIES TECHNICIAN) Acetaminophen <5 <=5 mcg/mL Comment: Interpretive Data Significant hepatic injury may occur and treatment with n-acetyl cysteine is generally recommended if the acetaminophen level exceeds: 150 mcg/mL at 4 hours after ingestion 75 mcg/mL at 8 hours after ingestion 38 mcg/mL at 12 hours after ingestion 19 mcg/mL at 16 hours after ingestion Consult toxicology or poison control ([phone]) for unknown ingestion time. Current interpretive data was last revised 2023. Testing performed by: [facility], [address] [place] [address]., [id number] Blood 03/08/2025 5:28 PM GEOTECHNICIAL PROPERTIES TECHNICIAN 03/08/2025 5:30 PM GEOTECHNICIAL PROPERTIES TECHNICIAN Domenic ThayerTribogenicstiffanie [facility] BLOOD ORDERABLES Final Re sult Performing Organization Address [facility] Co de Phone Number [address] [place] [address] * eGFR (03/07/2025 2:39 PM GEOTECHNICIAL PROPERTIES TECHNICIAN) eGFR >90 >=60 mL/min/1. 73 m2 Comment: Interpretive Data Reference Interval Normal >/= 90 mL/min/1.73m2 Mildly decreased* 60 - 89 mL/min/1.73m2 Mildly to moderately decreased 45 - 59 mL/min/1.73m2 Moderately to severely decreased 30 - 44 mL/min/1.73m2 Severely decreased 15 - 29 mL/min/1.73m2 Kidney Failure < 15 mL/min/1.73m2 *Relative to young adult level Estimated glomerular filtration rate is determined by the 2020 CKD-EPI equation recommended by the National Kidney Foundation (A Unifying Approach to GFR Estimation: Recommendations of the NKF-ASK Task Force on Reassessing the Inclusion of Race in Diagnosing Kidney Disease, JASN 2020). The CKD-EPI equation should not be used for patients with unstable renal function and has not been validated in children and those over 70. Current interpretive data was last reviewed 2021. Testing performed by: [address] [address] Blood 03/07/2025 2:39 PM GEOTECHNICIAL PROPERTIES TECHNICIAN 03/07/2025 3:59 PM GEOTECHNICIAL PROPERTIES TECHNICIAN us Domenic Wade DO LAB BLOOD ORDERABLES Final Re sult NANCY [address] [facility] [place] [address] * Iron profile w/ IBC (03/07/2025 2:39 PM GEOTECHNICIAL PROPERTIES TECHNICIAN) Iron 82 50 - 150 mcg/dL Comment:Testing performed by : [address] [address] TIBC 327 250 - 400 mcg/dL NANCY SOFIA Comment:Testing performed by : [address] [address] Transferrin saturation 25 20 - 50 % NANCY Comment:Testing performed by : [address] [address] Blood 03/07/2025 2:39 PM GEOTECHNICIAL PROPERTIES TECHNICIAN 03/07/2025 3:59 PM GEOTECHNICIAL PROPERTIES TECHNICIAN Domenic Wade DO LAB BLOOD ORDERABLES Final Re sult NANCY [address] [facility] [place] [address] * (ABNORMAL) Comprehensive metabolic panel (03/07/2025 2:39 PM GEOTECHNICIAL PROPERTIES TECHNICIAN) Sodium 139 135 - 145 mmol/L Comment:Testing performed by : [address] [address] Potassium, pl 4.0 3.3 - 4.9 mmol/L NANCY Comment:Testing performed by : [address] [address] Chloride 99 97 - 110 mmol/L NANCY Comment:Testing performed by : [address] [address] CO2 27 22 - 32 mmol/L NANCY Comment:Testing performed by : [address] [address] Anion gap 13 2 - 15 mmol/L NANCY Comment:Testing performed by : [address] [address] BUN 15 6 - 25 mg/dL NANCY Comment:Testing performed by : [address] [address] Creatinine 0.80 0.80 - 1.30 mg/dL NANCY Comment:Testing performed by : [address] [address] Glucose 81 70 - 199 mg/dL NANCY Comment: Interpretive Data Fasting glucose >/= 126 mg/dl is diagnostic for diabetes. Fasting is defined as no caloric intake for at least 8 hours. Fasting glucose between 100 mg/dl to 125 mg/dl is diagnostic of prediabetes. In a patient with classic symptoms of hyperglycemia or hyperglycemic crisis, a random glucose >/= 200 mg/dl is diagnostic for diabetes. In the absence of unequivocal hyperglycemia, results should be confirmed by repeat testing. The classification and Diagnosis of Diabetes Diabetes Care 2022; 46: S19-S40. Current interpretive data was last revised 2022. Testing performed by: [facility], [address] [place] [address]., [address] Calcium 9.8 8.5 - 10.3 mg/dL NANCY Comment:Testing performed by : [address] [address] Bilirubin, total 0.6 0.1 - 1.2 mg/dL NANCY Comment:Testing performed by : [address] [address] Protein, pl 7.5 6.5 - 8.5 g/dL NANCY Comment:Testing performed by : [address] [address] Albumin 5.1(H) 3.5 - 5.0 g/dL NANCY Comment:Testing performed by : [address] [address] Alk phos 48 40 - 130 Units/L NANCY Comment:Testing performed by : [address] [address] ALT 114(H) 7 - 55 Units/L NANCY Comment:Testing performed by : [address] [address] AST 338(H) 10 - 50 Units/L NANCY Comment:Testing performed by : [address] [address] Blood 03/07/2025 2:39 PM GEOTECHNICIAL PROPERTIES TECHNICIAN 03/07/2025 3:59 PM GEOTECHNICIAL PROPERTIES TECHNICIAN us Domenic Wade DO LAB BLOOD ORDERABLES Final Re sult NANCY SOFIA [address] [facility] [place] [address] * eGFR (02/28/2025 3:30 PM CDT) eGFR >90 >=60 mL/min/1. 73 m2 Comment: Interpretive Data Reference Interval Normal >/= 90 mL/min/1.73m2 Mildly decreased* 60 - 89 mL/min/1.73m2 Mildly to moderately decreased 45 - 59 mL/min/1.73m2 Moderately to severely decreased 30 - 44 mL/min/1.73m2 Severely decreased 15 - 29 mL/min/1.73m2 Kidney Failure < 15 mL/min/1.73m2 *Relative to young adult level Estimated glomerular filtration rate is determined by the 2020 CKD-EPI equation recommended by the National Kidney Foundation (A Unifying Approach to GFR Estimation: Recommendations of the NKF-ASK Task Force on Reassessing the Inclusion of Race in Diagnosing Kidney Disease, JASN 2020). The CKD-EPI equation should not be used for patients with unstable renal function and has not been validated in children and those over 70. Current interpretive data was last reviewed 2021. Testing performed by: [address] [address] Blood 02/28/2025 3:30 PM CDT 02/28/2025 3:38 PM CDT us Domenic Wade DO LAB BLOOD ORDERABLES Final Re sult Performing Organization Address [facility] Co de Phone Number [address] [place] [address] * Thyroid Function Campbell (02/28/2025 3:30 PM CDT) TSH 1.01 0.30 - 4.20 mcIUnit/mL Comment:Testing performed by : [address] [address] Blood 02/28/2025 3:30 PM CDT 02/28/2025 3:38 PM CDT us Domenic Wade DO LAB BLOOD ORDERABLES Final Re sult Performing Organization Address City/[facility] Co de Phone Number [address] [place] [address] * Lipid panel (02/28/2025 3:30 PM CDT) Cholesterol 175 30 - 199 mg/dL Comment: Interpretive Data Ages < or = 19 years Acceptable: <170 mg/dL Borderline high: 170-199 mg/dL High: >or= 200 mg/dL Ages > or = 20 years Desirable: <200 mg/dL Borderline high: 200-239 mg/dL High: >or= 240 mg/dL Literature References: 1. Expert Panel on Integrated Guidelines for Cardiovascular Health and Risk Reduction in Children and Adolescents. Pediatrics 2011;128:S213 2. NCEP Expert Panel. Circulation 2004;110:227 Current Interpretive Data was last revised on 2017. Testing performed by: [address] [address] Triglycerides 52 <=149 mg/dL NANCY Comment: Interpretive Data Ages < or = 9 years Acceptable: <75 mg/dL Borderline high: 75-99 mg/dL High: >or= 100 mg/dL Ages 10 to 20 years Acceptable: <90 mg/dL Borderline high: 90-129 mg/dL High: >or= 130 mg/dL Ages > or = 20 years Desirable: <150 mg/dL Borderline high: 150-199 mg/dL High: 200-499 mg/dL Very high: >or= 499 mg/dL Literature References: 1. Expert Panel on Integrated Guidelines for Cardiovascular Health and Risk Reduction in Children and Adolescents. Pediatrics 2011;128:S213 2. NCEP Expert Panel. Circulation 2004;110:227 Current Interpretive Data was last revised on 2017. Testing performed by: [address] [address] HDL 61 >=40 mg/dL NANCY Comment: Interpretive Data Ages < or = 19 years Acceptable: >45 mg/dL Borderline low: 40-45 mg/dL Low: <40 mg/dL Ages > or = 20 years Desirable: >or= 60 mg/dL Low: <40 mg/dL Literature References: 1. Expert Panel on Integrated Guidelines for Cardiovascular Health and Risk Reduction in Children and Adolescents. Pediatrics 2011;128:S213 2. NCEP Expert Panel. Circulation 2004;110:227 Current Interpretive Data was last revised on 2017. Testing performed by: [address] [address] LDL, calculated 104 <=129 mg/dL NANCY Comment: Interpretive Data Ages < or = 19 years Acceptable: <110 mg/dL Borderline high: 110-129 mg/dL High: >or= 130 mg/dL Ages > or = 20 years Optimal: <100 mg/dL Near optimal: 100-129 mg/dL Borderline high: 130-159 mg/dL High: >160 mg/dL Calculated using the Nico LDL-C estimating equation. This equation was implemented on 2023. Prior to this date LDL-C was estimated using the Friedewald equation. Literature References: 1. Expert Panel on Integrated Guidelines for Cardiovascular Health and Risk Reduction in Children and Adolescents. Pediatrics 2011;128:S213 2. NCEP Expert Panel. Circulation 2004;110:227 3. Nico M et al. ELIJAH Cardiol. 2020 September 01;5(5):540-548. doi: 10.1001/jamacardio.2020.0013 Current Interpretive Data was last revised on 2023. Testing performed by: [address] [address] Non-HDL Cholesterol 114 mg/dL NANCY SOFIA Comment: Interpretive Data Ages < or = 19 years Acceptable: <120 mg/dL Borderline high: 120-144 mg/dL High: >145 mg/dL Ages > or = 20 years When triglycerides are >200 mg/dL, Non-HDL cholesterol is a secondary target of therapy with treatment goals that are 30 mg/dL greater than the LDL cholesterol target. Literature References: 1. Expert Panel on Integrated Guidelines for Cardiovascular Health and Risk Reduction in Children and Adolescents. Pediatrics 2011;128:S213 2. NCEP Expert Panel. Circulation 2004;110:227 Current Interpretive Data was last revised on 2017. Testing performed by: [address] [address] Chol/HDL ratio 3 NANCY SOFIA Comment:Testing performed by : [address] [address] Blood 02/28/2025 3:30 PM CDT 02/28/2025 3:38 PM CDT us Domenic Wade DO LAB BLOOD ORDERABLES Final Re sult NANCY SOFIA [address] [facility] [place] [address] * (ABNORMAL) Comprehensive metabolic panel (02/28/2025 3:30 PM CDT) Sodium 140 135 - 145 mmol/L Comment:Testing performed by : [address] [address] Potassium, pl 4.1 3.3 - 4.9 mmol/L NANCY Comment:Testing performed by : [address] [address] Chloride 103 97 - 110 mmol/L NANCY Comment:Testing performed by : [address] [address] CO2 27 22 - 32 mmol/L NANCY Comment:Testing performed by : [address] [address] Anion gap 10 2 - 15 mmol/L NANCY Comment:Testing performed by : [address] [address] BUN 13 6 - 25 mg/dL NANCY Comment:Testing performed by : [address] [address] Creatinine 0.80 0.80 - 1.30 mg/dL NANCY Comment:Testing performed by : [address] [address] Glucose 89 70 - 199 mg/dL NANCY Comment: Interpretive Data Fasting glucose >/= 126 mg/dl is diagnostic for diabetes. Fasting is defined as no caloric intake for at least 8 hours. Fasting glucose between 100 mg/dl to 125 mg/dl is diagnostic of prediabetes. In a patient with classic symptoms of hyperglycemia or hyperglycemic crisis, a random glucose >/= 200 mg/dl is diagnostic for diabetes. In the absence of unequivocal hyperglycemia, results should be confirmed by repeat testing. The classification and Diagnosis of Diabetes Diabetes Care 2021; 46: S19-S40. Current interpretive data was last revised 2022. Testing performed by: [address] [address] Calcium 9.4 8.5 - 10.3 mg/dL NANCY SOFIA Comment:Testing performed by : [address] [address] Bilirubin, total 0.5 0.1 - 1.2 mg/dL NANCY SOFIA Comment:Testing performed by : [address] [address] Protein, pl 6.8 6.5 - 8.5 g/dL NANCY Comment:Testing performed by : [address] [address] Albumin 4.8 3.5 - 5.0 g/dL NANCY Comment:Testing performed by : [address] [address] Alk phos 47 40 - 130 Units/L NANCY Comment:Testing performed by : [address] [address] ALT 86(H) 7 - 55 Units/L NANCY Comment:Testing performed by : [address] [address] AST 87(H) 10 - 50 Units/L NANCY Comment:Testing performed by : [address] [address] Blood 02/28/2025 3:30 PM CDT 02/28/2025 3:38 PM CDT us Domenic Wade DO LAB BLOOD ORDERABLES Final Re sult NANCY [facility] [place] [address] * ECG 12 lead (02/28/2025 2:42 PM CDT) us Domenic Wade DO ECG ORDERABLES Final Result from Last 3 Months Insurance [facility] [place] [address] Care Teams [place] Repairer Relationship Specialty Start Date End Date Domenic Wade DO [address] [facility] [address] [place] [address] PCP - General Family Medicine 02/28/25
--- NOTE | 2025-03-22 12:44 | PM.IMHP ---
H&P: HPI History of Present Illness Date/Time: 03/22/25 12:44 Chief Complaint: Right renal stones Review of Systems Constitutional: Constitutional: Reports no additional constitutional complaints Eyes: Eyes: Reports no additional eye complaints ENT: Reports Normal hearing present Cardiovascular: Cardiovascular: Reports no additional cardiovascular complaints Gastrointestinal: Comments: No nausea or vomiting Musculoskeletal: Musculoskeletal: Reports no additional musculoskeletal complaints Psychiatric: Psychiatric: Reports no additional psychiatric complaints [facility] Social History Social History Smoking status: Never smoker Alcohol intake: current Drinks per week: 2 Living arrangements: with family Spiritual care concerns: No Meds Home Medications and Allergies Home Medications ?Medication ?Instructions ?Recorded ?Confirmed ?Type oxycodone 5 mg tablet 5 mg PO HS 03/15/25 03/18/25 History tamsulosin 0.4 mg capsule 0.4 mg PO DAILY 03/15/25 03/18/25 History telmisartan 20 mg tablet 20 mg PO DAILY 03/15/25 03/18/25 History tramadol 50 mg tablet 50 mg PO Q6H PRN pain #20 tabs 03/18/25 Rx Allergies Allergy/AdvReac Type Severity Reaction Status Date / Time No Known Allergies Allergy Verified 03/18/25 09:36 Vital Signs Vital Signs - 24 hr 03/22/25 11:00 Temperature 36.8 C Pulse Rate 58 L Blood Pressure 119/67 Pulse Oximetry 100 Oxygen Delivery Room Air Exam Const: General: comfortable and no acute distress HENMT: Face/Nose/Sinus: Normal nares present Mouth: Yes moist mucous membranes Eyes: General: appearance normal, both eyes and all related structures EOM: EOMs intact bilaterally Resp: Effort & Inspection: normal respiratory effort Cardio: Rate: regular rate Skin: General skin exam: normal color and no rashes or lesions noted Neuro: Speech: normal speech Extrem: General: normal to inspection Psych: Mental Status: mental status grossly normal Affect: normal affect Assessment and Plan Assessment and plan (1) Kidney stone: Code(s): N20.0 - Calculus of kidney Status: Inactive Plan Mr. Diez is a 29 year old male with recurrent urolithiasis, multiple bilateral renal stones, largest in the right renal pelvis. Plan cystoscopy, left ureteroscopy, laser lithotripsy, stone extraction, stent placement. Risks of the procedure were discussed including but not limited to bleeding, infection, ureteral injury/stricture need for additional procedures and stent symptoms. He understands and wishes to proceed. All questions were answered.
--- NOTE | 2025-03-22 12:50 | WPDANESEPPF ---
Anes - Initial Pre Proc Eval Procedure: Operation Date: 03/22/25 12:00 Proposed Procedures p Cystoscopy, Right Ureteroscopy, Possible Right Retrograde Pyelogram, Possible Right Stone Extraction, Possible Right Stent Placement, Possible Holmium Laser - Shyla Donaldson MD Date/Time: 03/22/25 12:50 Surgeon: Shyla Donaldson MD Pre Op Diagnosis: right kidney stone Patient Data Age: 29 Gender: M Height: 1.83 m Weight: 84.5 kg Last Vital Signs Temp 98.3 F 03/22/25 11:00 Pulse 58 L 03/22/25 11:00 BP 119/67 03/22/25 11:00 Pulse Ox 100 03/22/25 11:00 O2 Del Method Room Air 03/22/25 11:00 Allergies Allergy/AdvReac Type Severity Reaction Status Date / Time No Known Allergies Allergy Verified 03/18/25 09:36 Home Medications ?Medication ?Instructions ?Recorded ?Confirmed ?Type oxycodone 5 mg tablet 5 mg PO HS 03/15/25 03/18/25 History tamsulosin 0.4 mg capsule 0.4 mg PO DAILY 03/15/25 03/18/25 History telmisartan 20 mg tablet 20 mg PO DAILY 03/15/25 03/18/25 History tramadol 50 mg tablet 50 mg PO Q6H PRN pain #20 tabs 03/18/25 Rx Patient hx anesthesia problems: none Family hx anesthesia problems: none Results Review: All pre-operative results and documents have been reviewed as part of the pre-operative evaluation. [facility] Social History Social History Smoking status: Never smoker Alcohol intake: current Drinks per week: 2 Living arrangements: with family Spiritual care concerns: No Anes - Eval Final PreProcedure Day of Procedure 03/22/25 12:50 Patient weight: normal Lungs: normal air movement Airway: Mallampati scale class II Neurological: alert and oriented Last oral intake: >/= 8 hours ASA classification: II Emergent: no Anesthetic plan: proceed Anesthesia type and monitoring: general LMA and standard monitoring Results Review: All pre-operative results and documents have been reviewed as part of the pre-operative evaluation. HTN, active without cp or sob. Informed Consent: The patient's anesthetic plan and its attendant risks and benefits were discussed with the patient/family/POA. Questions were solicited and answers provided to the satisfaction of the patient/family/POA.
--- NOTE | 2025-03-22 12:52 | WPDHPUPDATE1 ---
History and Physical Update Update Date/Time: 03/22/25 12:52 History and Physical has been reviewed, including an updated exam of the patient. There are NO changes in the patient's condition. Risks, benefits, and alternatives have been discussed and questions answered. Patient agrees to proceed with procedure.
--- NOTE | 2025-03-22 12:57 | WPDHPUPDATE1 ---
History and Physical Update Update Date/Time: 03/22/25 12:57 History and Physical has been reviewed, including an updated exam of the patient. There are NO changes in the patient's condition. Risks, benefits, and alternatives have been discussed and questions answered. Patient agrees to proceed with procedure.
[2025-03-22] MEDS: ceFAZolin 2 GM in SODIUM CHLORIDE 0.9% IV 50 ML 100 ML IVPB (13:01)
[2025-03-22] MEDS: LACTATED RINGERS 1,000 ML 30 ML IV CONT ×2 (14:56→15:21)
[2025-03-22] MEDS: fentaNYL CITRATE INJ (*CRX) 100 MCG/2 ML VIAL 25 MCG IV PUSH ×8 (15:14→16:34)
[2025-03-22] MEDS: KETOROLAC 30 MG/ML VIAL (*BKC) IV PUSH (15:40)
[2025-03-22] MEDS: oxyCODONE HCL (*CRX) 5 MG TAB IR PO (16:19)
--- NOTE | 2025-03-22 16:51 | W.PM.PROC2 ---
Procedure Note - Detailed Date of Procedure 03/22/25 Pre-op Diagnosis Right renal stone Post-op Diagnosis Same (Right renal stone) Procedure Performed Cystoscopy right retrograde pyelogram, right ureteroscopy laser lithotripsy stent placement Surgeon Shyla Donaldson MD Anesthesia General Indications Right ureteropelvic junction stone Findings Right ureteropelvic junction stone No hydronephrosis Description of Procedure Patient was correctly identified informed consent was obtained. He was taken to the operating room placed in the dorsal lithotomy position. He was given intravenous antibiotics within 1 hour of procedure start bilateral SCDs were placed for DVT prophylaxis. Was prepped and draped in standard fashion. Rigid cystoscopy was performed. The bladder mucosa appeared. Prostate was nonobstructive. There were no bladder lesions noted. The right ureteral orifice was identified and a Sensor guidewire was passed into the kidney. Over this a flexible ureteroscope was passed. However mild resistance was noted. The ureter was subsequently gently dilated with a 5 Gibraltarian open-ended catheter followed by 8/10 Gibraltarian coaxial dilators. Which could pyelogram revealed stone within the renal pelvis without hydronephrosis. Next the flexible ureteroscope was easily passed over guidewire and the stone identified in the renal pelvis. The stone was dusted the stone migration was noted to the upper pole. The stone fragments were further dusted. There were several additional stones noted in the mid and lower calices that were treated as well. After working for approximately 90 minutes it did appear the patient would benefit a staged procedure to treat for any remaining stone fragments to difficult to pass. Under direct vision a 4.8 Gibraltarian ureteral stent was placed with the proximal and clean the kidney and the distal end noted to curl adequately within the bladder. The bladder was then drained. Implants 4.8Fr ureteral stent Estimated Blood Loss 0 [facility] Billing Surgery - Charge Forward: Surgery Billing
[2025-03-22] MEDS: HYDROmorphone HCL INJ (*CRX) 1 MG/ML SYR 0.5 MG IV PUSH ×2 (17:02→17:08)
== END 2025-03-22 17:40 | disposition home or self-care (01) ==
PROVIDERS: Visit Provider Urology
PROC: (CPT 52352; principal; 2025-03-22 12:00)
DX: N20.0 Calculus of kidney (principal); I10 Essential (primary) hypertension; Z79.891 Long term (current) use of opiate analgesic
CPT/HCPCS: 52356; 74420; J0690; A9270; C1758; C1769; C2617; J1100; J1171; J1885; J2250; J2405; J2704; J3010; J7120; Q9966

== ENCOUNTER 2025-03-22 23:57 | Observation (INO) | payer OTHER, SELFPAY ==
--- NOTE | ~2025-03-22 | XR_ITS ---
Examination: XR abdomen/kub 1V Clinical History: eval ureteral catheter Comparison: CT earlier same day Technique: 2 views AP abdomen Findings: Right kidney hydronephrosis with proximal ureteral stone. Double-J ureteral stent extends from mid ureter into bladder. Excreted contrast and/or stones left kidney calyces. Urinary bladder with excreted contrast. Nonspecific bowel gas pattern. No acute bony abnormality. IMPRESSION: 1. Right kidney hydronephrosis with proximal ureteral stone. 2. Double-J ureteral stent extends from right mid ureter into bladder. Reviewed, dictated and finalized at location R. F ULTRASOUND TECHNOLOGIST
--- NOTE | ~2025-03-22 | CT_ITS ---
CT abdomen pelvis w con Clinical History: r flank pain, recent ureteral stent placement . Comparison: None Technique: Axial images lung bases to symphysis pubis 100 mL Omnipaque 350 Coronal, sagittal reformats CT images acquired with automatic exposure control for dose reduction DLP: 423 mGy-cm Findings: Lung bases: Clear. Visualized heart and pericardium: Unremarkable. Liver: Mild periportal edema. Gallbladder: Unremarkable. Spleen: Unremarkable. Pancreas: Unremarkable. Adrenal glands: Unremarkable. Kidneys: Right kidney- Hydronephrosis. Stones. Perinephric fluid extending caudally. High density focus proximal ureter. Double-J ureteral stent extending from mid ureter to bladder. Left kidney- No hydronephrosis. Stones. Distal esophagus/stomach: Unremarkable. Small bowel loops: Normal caliber and wall thickness. Colon: Diverticula. Normal caliber and wall thickness. Normal RLQ appendix. Nodes: No enlarged nodes. Peritoneum: No ascites. No free air. Urinary bladder: Unremarkable. Prostate: Unremarkable. Bones: No acute bony abnormality. Soft tissues: Unremarkable. Aorta: No aneurysm or dissection. IVC: Unremarkable. Main portal vein/SMV/splenic vein: Patent. IMPRESSION: 1. Stone or catheter fragment proximal right ureter, with consequent hydronephrosis. 2. Right-sided double-J ureteral stent from mid ureter to bladder. 3. Bilateral nephrolithiasis Reviewed, dictated and finalized at location R. TRUCK DRIVER IMPRESSION: 1. Stone or catheter fragment proximal right ureter, with consequent hydroneph rosis. 2. Right-sided double-J ureteral stent from mid ureter to bladder. 3. Bilateral nephrolithiasis
--- NOTE | ~2025-03-22 | XR_ITS ---
EXAMINATION: XR retrograde pyelogram RT DATE: 03/23/2025 11:41 INDICATION: Right intrarenal stent placement TECHNIQUE: 4 fluoroscopic images of the abdomen and pelvis were obtained procedure performed by Dr. Donaldson. Radiologist was not present for the imaging or procedure. The amount of fluoroscopy time used during this procedure was 0.5 minutes. The dose area product was 0.286 mGym^2. COMPARISON: KUB dated 03/23/2025 FINDINGS: Initial image demonstrates a portion of the right ureter or with a wire advanced into and upper pole calyx of the right kidney. There is contrast within the mildly dilated right renal collecting system, unclear whether this is retrograde injected contrast or residual excreted contrast from the earlier contrast- enhanced CT. There is a persistent filling defect at the proximal most right ureter. Final images demonstrate placement of a new right internal ureteral stent with loops formed in an upper pole calyx of the right kidney and in the bladder. IMPRESSION: 1. Interval replacement of a previously retracted right internal ureteral stent with the new stent in expected position. See procedure note for further detail. Reviewed, dictated and finalized at location A. NESS UNIT CONTROLLER IMPRESSION: 1. Interval replacement of a previously retracted right internal ureteral stent with the new stent in expected position. See procedure note for further detail .
[2025-03-23] VITALS (14 sets, daily range): BP systolic 100–156; BP diastolic 48–123; PULSE 50–85; RESP 14–26; TEMP 36.1–37.5; O2SAT 96–100; BMI 25.9
[2025-03-23 00:38] LABS: Hematocrit 42.6 % (42.0-52.0); Hemoglobin 14.7 g/dL (14.0-18.0); Immature Granulocyte Percent A 1.2 % (0-0.5); Lymphocytes Absolute Auto 1.80 K/mm3 (0.9-3.2); Mean Corpuscular HGB Conc 34.5 g/dl (32-36); Mean Corpuscular Hemoglobin 30.1 pg (26-34); Mean Corpuscular Volume 87.1 fl (80-100); Nucleated Red Blood Cells Absolute Auto 0.000 K/mm3 (0.0-0.012); Nucleated Red Blood Cells Perc 0.0 % (0.0-0.2); Platelet Count Result 240 k/mm3 (150-375); Red Blood Count 4.89 M/mm3 (4.6-6.20); White Blood Count 18.1 K/mm3 (4.5-10.0)
--- NOTE | 2025-03-23 00:39 | ED.MALEGU ---
HPI - Male Genitourinary General Chief complaint: Urogenital-Male Stated complaint: I had kidney surgery today Time Seen by Provider: 03/23/25 00:15 Source: patient Mode of arrival: ambulatory Limitations: no limitations History of Present Illness HPI Narrative: This is a 29-year-old male with recent history of kidney stones who presents the ED for flank pain. Patient states that he had a lithotripsy and ureteral stent placement today and for the past few hours he has had worsening flank and right lower quadrant abdominal pain. He has had hematuria including clots. He has taken as Oxy home with no relief. Related Data Home Medications ?Medication ?Instructions ?Recorded ?Confirmed ?Last Taken ?Type oxycodone 5 mg tablet 5 mg PO HS 03/15/25 03/18/25 Unknown History tamsulosin 0.4 mg capsule 0.4 mg PO DAILY 03/15/25 03/18/25 Unknown History telmisartan 20 mg tablet 20 mg PO DAILY 03/15/25 03/18/25 Unknown History Allergies Allergy/AdvReac Type Severity Reaction Status Date / Time No Known Allergies Allergy Verified 03/22/25 23:59 Review of Systems Review of Systems: Gen.: Denies fevers or chills Eyes: Denies eye pain or visual change ENT: Denies congestion Respiratory: Denies shortness of breath or cough CV: Denies chest pain or palpitations GI: As per HPI denies burning, urgency, frequency or hematuria Musculoskeletal: Denies back pain or muscle pain Neuro: Denies numbness, tingling, weakness or focal weakness Skin: Denies rash Except as documented, all other systems reviewed and negative [facility] Past Medical History Medical History Urolithiasis Social History Social History Smoking status: Never smoker Alcohol intake: current Drinks per week: 2 Living arrangements: with family Spiritual care concerns: No Exam Narrative: APPEARANCE: Standing next to bed leaning over the bed in moderate distress EYES: EOMI HEENT: Normocephalic, atraumatic, OMM RESPIRATORY: No respiratory distress Clear to auscultation bilaterally with no rhonchi wheezing or rales. CARDIOVASCULAR: Regular rate and rhythm without murmurs rubs or gallops. ABDOMINAL: Soft, CVA tenderness on the right, tenderness palpation of the right lower quadrant MUSCULOSKELETAl: Moves all extremities. No clubbing, cyanosis or edema. NEURO: Awake and alert. Following commands, speech normal, no focal deficits SKIN:: Warm, dry. No rashes lesions or abrasions PSYCHIATRIC: Normal affect/mood, Course Vital Signs Vital signs: Vital Signs Temperature 97.7 F 03/23/25 00:17 Pulse Rate 82 03/23/25 00:17 Respiratory Rate 26 H 03/23/25 00:17 Blood Pressure 154/123 H 03/23/25 00:17 Pulse Oximetry 100 03/23/25 00:17 Oxygen Delivery Room Air 03/23/25 00:17 Temperature 97.7 F 03/23/25 00:17 Pulse Rate 55 L 03/23/25 04:16 Respiratory Rate 18 03/23/25 04:16 Blood Pressure 154/62 H 03/23/25 04:16 Pulse Oximetry 96 03/23/25 04:16 Oxygen Delivery Room Air 03/23/25 00:17 MDM - Male Genitourinary MDM Narrative Medical decision making narrative: 29-year-old male Presenting for right lower abdominal pain after recent ureteral stent placement. On initial evaluation patient was in no acute distress afebrile, hemodynamic stable. Differentials include but are not limited to: Ureterolithiasis, ureteral stent problem, hematuria, UTI Notable exam findings: Moderate distress with right lower quadrant to palpation I personally reviewed the patient's lab result. Notable lab findings: Leukocytosis at 18.1. Mild hyponatremia at 134 I personally reviewed the patient's images and interpret as follows: CT abdomen/pelvis showed potential concerns for aching of the right ureter with hydronephrosis CT abdomen/pelvis read by Radiology showed right hydroureter or nephrosis with proximal ureteral 8 mm calculus. I did discuss this with the radiologist who recommended adding a KUB to further differentiate stones from the stent. Patient was requiring significant amounts of medications for pain control. Because of this, he will require admission for intractable flank pain and possible ureteral stent problem. I did discuss the case with Dr. Jones, urology, who will admit the patient. KUB potentially showed migration of the ureteral stent the kinking this was potentially noted on CT may be more consistent with proximal stones. Medical Records Attestation: I reviewed the patient's medical records. Medical records narrative: Patient had difficult ureteral stent placement 03/22/[address] Donaldson, planned for staged procedure Lab Data Attestation: I reviewed the patient's lab results. 03/23/25 00:29 03/23/25 00:29 Labs: Lab Results 03/23/25 03/23/25 03/23/25 Range/Units 00:29 00:32 02:42 WBC 18.1 H (4.5-10.0) K/mm3 RBC 4.89 (4.6-6.20) M/mm3 Hgb 14.7 (14.0-18.0) g/dL Hct 42.6 (42.0-52.0) % MCV 87.1 (80-100) fl MCH 30.1 (26-34) pg MCHC 34.5 (32-36) g/dl RDW 12.7 (11.5-14.5) % Plt Count 240 (150-375) k/mm3 MPV 10.5 H (7.4-10.4) fl Immature Gran % (Auto) 1.2 H (0-0.5) % Neut % (Auto) 80.9 H (45.5-73.1) % Lymph % (Auto) 10.0 L (18.3-44.2) % [place] % (Auto) 7.7 (2.6-8.5) % Eos % (Auto) 0.0 (0-4.4) % Baso % (Auto) 0.2 (0.2-1.2) % Lymph # (Auto) 1.80 (0.9-3.2) K/mm3 [place] # (Auto) 1.4 H (0.1-0.6) K/mm3 Eos # (Auto) 0.0 (0-0.3) K/mm3 Baso # (Auto) 0.0 (0.0-0.1) K/mm3 Abs Immat Gran (auto) 0.21 H (0.00-0.031) K/mm3 Absolute Neuts (auto) 14.6 H (1.3-6.7) K/mm3 Absolute Nucleated RBC 0.000 (0.0-0.012) K/mm3 Nucleated RBC % 0.0 (0.0-0.2) % Sodium 134 L (137-145) mmol/L Potassium 4.4 (3.4-5.0) mmol/L Chloride 104 (98-107) mmol/L Carbon Dioxide 19 L (22-30) mmol/L Anion Gap 11 (4-12) mmol/L BUN 16 (9-20) mg/dL Creatinine 1.02 (0.7-1.3) mg/dL Estim Creat Clear Calc 102 ml/min Estimated GFR > 60 (59 - ) Glucose 135 H (65-110) mg/dL Lactic Acid 2.2 H 1.1 (0.7-2.0) mmol/L Calcium 9.3 (8.4-10.2) mg/dL Total Bilirubin 1.1 (0.2-1.3) mg/dL AST 47 (17-59) U/L ALT 51 H (6-50) U/L Alkaline Phosphatase 52 (38-126) U/L Total Protein 7.4 (6.3-8.2) g/dL Albumin 4.8 (3.5-5.1) g/dL Lipase 34 (23-300) U/L Discharge Plan Discharge Clinical Impression: Intractable abdominal pain, Ureteral stent present, Ureterolithiasis Patient Disposition: Still a Patient Condition: Stable
[2025-03-23 00:45] LABS: Alanine Aminotransferase 51 U/L (6-50); Albumin Level 4.8 g/dL (3.5-5.1); Alkaline Phosphatase 52 U/L (38-126); Anion Gap 11 mmol/L (4-12); Aspartate Amino Transferase 47 U/L (17-59); Bilirubin,Total 1.1 mg/dL (0.2-1.3); Blood Urea Nitrogen 16 mg/dL (9-20); Calcium 9.3 mg/dL (8.4-10.2); Carbon Dioxide 19 mmol/L (22-30); Chloride 104 mmol/L (98-107); Estimated CRCL calculation 102 ml/min; Estimated Glomerular Filt Rate > 60; Glucose 135 mg/dL (65-110); Lipase 34 U/L (23-300); Potassium 4.4 mmol/L (3.4-5.0); Sodium 134 mmol/L (137-145); Total Protein 7.4 g/dL (6.3-8.2)
[2025-03-23] MEDS: MORPHINE SULFATE (*CRX) 4 MG/ML INJ IV PUSH ×2 (00:46→02:02)
[2025-03-23] MEDS: ONDANSETRON INJ 4 MG/2 ML VIAL IV PUSH (00:47)
[2025-03-23] MEDS: SODIUM CHLORIDE 0.9% IV 1,000 ML 999 ML IV CONT (00:48)
[2025-03-23] MEDS: KETOROLAC 30 MG/ML VIAL (*BKC) IV PUSH ×2 (01:07→08:33)
--- OUTSIDE RECORDS SUMMARY | 2025-03-23 02:02 | XMS_ITS | Clinical Summary ---
Author Organization [facility] Address [address] [place] [id number] Care Team Providers Care Manager Compensation Name Role Phone Gen Garrett MD Primary Care Provider [phone] Allergies No known active allergies Medications No [...] on file Legal Sex Male 5:58 PM HOSE MAKER Gender Identity Not on file Sexual Orientation Not on file Last Filed Vital Signs Vital Sign Reading Time Taken Comments Blood Pressure 147/93 04/20/2020 6:09 PM HOSE MAKER Pulse 80 04/20/2020 6:09 PM HOSE MAKER Temperature 37 C (98.6 F) 04/20/2020 6:09 PM HOSE MAKER Respiratory Rate - - Oxygen Saturation 98% 04/20/2020 6:09 PM HOSE MAKER Inhaled Oxygen Concentration - - Weight 83.9 kg (185 lb) 04/20/2020 6:09 PM HOSE MAKER Height 182.9 cm (6') 04/20/2020 6:09 PM HOSE MAKER Body Mass Index 25.09 04/20/2020 6:09 PM HOSE MAKER Plan of Treatment Health Maintenance Due Date Last Done Comments DTAP/TDAP/TD VACCINES (1 - Tdap) 2012 HEPATITIS B VACCINES (1 of 3 - 19+ 3-dose series) 2012 HPV VACCINES (1 - 3-dose SCDM series) 2020 INFLUENZA VACCINE (#1) 2024 01/03/2017, 2015 Insurance OUT OF STATE Care Teams Manager Compensation Relationship Specialty Start Date End Date Gen Garrett MD [address] [place] [address] PCP - General 04/20/20
--- OUTSIDE RECORDS SUMMARY | 2025-03-23 02:02 | XMS_ITS | Encounter Summary ---
Author Organization [facility] Address [address] [place] [id number] Care Team Providers Care Software Sales Representative Name Role Phone Domenic Wade DO Primary Care Provider [phone] Reason for Visit * Reason Onset Date Comments Medical Records Request 03/15/2025 Encounter Details Date Type Department Care Team (Late st Contact Info) Description 03/15/[address] 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 RINARY TECHNICIAN ASSISTANT * Telephone Encounter - Marge Spivey - 03/15/2025 2:47 PM CST Medical Records Request Request Type: Records Request Practice Will Complete What records are being requested:EKG 02/28/25 Who will the records be sent to (if being sent to another doctor, list the doctor's name and specialty)? [facility] outpatient surgery Date Needed: mauri Delivery Method: Fax Fax number to use for return of records: [phone] Additional Comments/Concerns: Jp with [facility] called stating patient has an upcoming procedure and they would like a copy of the EKG. Does the message need to be routed? Yes-Action Needed RINARY TECHNICIAN ASSISTANT documented in this encounter Plan of Treatment Not on file documented as of this encounter Visit Diagnoses Not on filedocumented in this encounter Care Teams Software Sales Representative Relationship Specialty Start Date End Date Domenic Wade DO [address] [facility] [address] [place] [address] PCP - General Family Medicine 02/28/25 documented as of this encounter
--- OUTSIDE RECORDS SUMMARY | 2025-03-23 02:02 | XMS_ITS | Clinical Summary ---
Author Organization [facility] Address [address] [place] [address] Care Team Providers Care Production Helper Name Role Phone Gen Garrett MD Primary Care Provider [phone] Source Comments [facility],non-owned Affiliates and Associated Physician Practices is amultiple site organization consisting of ambulatory clinics and hospital sitesin [place], [place], [place] and [place]. This disclosure is being madepursuant to the Care Everywhere program and may not contain all information available regarding this patient. Last updated 18.[facility] Allergies No known active allergies Medications * [...] st Contact Info) Description 04/03/2025 2:30 PM ATHLETIC SCOUT Office Visit [facility] - [address] [facility] [address] [place] [address] Hazel Francisco PA-C [address] [place] [id number] Health Maintenance Due Date Last Done Comments [...] patient's age to complete this topic Insurance [facility] Care Teams Production Helper Relationship Specialty Start Date End Date Gen Garrett MD PCP - General Family Medicine 07/28/18
--- OUTSIDE RECORDS SUMMARY | 2025-03-23 02:02 | XMS_ITS | Clinical Summary ---
Author Organization [facility] Address [address] [facility] [address] [place] [phone] Phone Care Team Providers Care Operations Assistant Name Role Phone SelamDomenic moreno Primary Care Provider [phone] Allergies Active Allergy Reactions Criticality Noted Date [...] mg total) by mouth daily Thyroid Function Cabell; Future Lipid panel; Future Comprehensive metabolic panel; Future ECG 12 lead Basic metabolic panel; Future ADHD (attention deficit hype ractivity disorder), combined type 04/16/2015 Encounters Date Type Department Care Team Description 03/15/2025 Telephone [facility] Family Medicine [address] [place] [phone] Domenic Wade DO Medical Records Request 03/13/2025 Telephone [facility] [address] [place] [phone] Domenic Wade DO 03/10/2025 10:18 AM [employer] - 03/10/2025 12:15 PM [facility] Emergency [address] [address] Transaminitis (Primary Dx); Hydronephrosis, unspecified hydronephrosis type Discharge Disposition: Discharge to home or self care 03/10/2025 8:11 AM [employer] - 03/10/2025 11:59 PM [employer] Hospital Encounter [address] [address] Elevated LFTs Discharge Disposition: Discharge to home or self care 03/10/2025 Results Follow-Up [facility] [address] [place] [phone] Domenic Wade DO US RUQ, Acetaminophen level, Liver/kidney microsome type 1 antibody, Additional followed-up results: 2 03/08/2025 5:05 PM [employer] Lab [facility] [address] [place] [address] Elevated LFTs 03/08/2025 Results Follow-Up [address] [phone] Domenic Wade DO Comprehensive metabolic panel, eGFR 03/07/2025 2:35 PM [employer] Lab [facility] [address] [place] [address] Elevated LFTs 03/01/2025 Results Follow-Up [address] [phone] Domenic Wade DO Comprehensive metabolic panel, Lipid panel, Thyroid Function Cabell, eGFR 02/28/2025 3:15 PM CDT Lab [facility] [address] [place] [address] Essential hypertension 02/28/2025 2:30 PM CDT Office Visit [address] [phone] Domenic Wade DO Annual physical exam (Primary [...] Industry Job Start Date Job End Date [employer] Not on file Not on file Not on file Last Filed Vital Signs Vital Sign Reading Time Taken Comments Blood Pressure 131/85 03/10/2025 12:00 PM [employer] Pulse 52 03/10/2025 12:00 PM [employer] Temperature 36.8 C (98.2 F) 03/10/2025 9:05 AM [employer] Respiratory Rate 18 03/10/2025 12:00 PM [employer] Oxygen Saturation 100% 03/10/2025 12:00 PM [employer] Inhaled Oxygen Concentration - - Weight 86.2 kg (190 lb) 03/10/2025 9:20 AM [employer] Height 180.3 cm (5' 11) 02/28/2025 2:14 [...] PELVIS W CONTRAST ED 03/10/2025 10:02 AM [employer] URINALYSIS, MICROSCOPIC ONLY STAT 03/10/2025 9:26 AM [employer] URINALYSIS AND REFLEX TO MICROSCOPIC AND CULTURE STAT 03/10/2025 9:26 AM [employer] EGFR STAT 03/10/2025 9:23 AM [employer] DIFFERENTIAL AUTO STAT 03/10/2025 9:2 3 AM [employer] LIPASE STAT 03/10/2025 9:23 AM [employer] COMPREHENSIVE METABOLIC PANEL STAT 03/10/2025 9:23 AM [employer] CBC WITH AUTO DIFFERENTIAL STAT 03/10/2025 9:23 AM [employer] US RUQ Schedule Routine, Read Routine (OP Routine) 03/10/2025 9:11 AM [employer] Elevated LFTs SMOOTH MUSCLE ANTIBODY, QUALITATIVE Routine 03/08/2025 5:28 PM [employer] Elevated LFTs LIVER/KIDNEY MICROSOME TYPE 1 AB Routine 03/08/2025 5:28 PM [employer] Elevated LFTs ACETAMINOPHEN LEVEL Routine 03/08/2025 5 :28 PM [employer] Elevated LFTs HEPATITIS PANEL, ACUTE Routine 03/08/2025 5:28 PM [employer] Elevated LFTs IRON PROFILE W/ IBC Routine 03/07/2025 2 :39 PM [employer] Elevated LFTs EGFR Routine 03/07/2025 2:39 PM [employer] Elevated LFTs COMPREHENSIVE METABOLIC PANEL Routine 03/07/2025 2:39 PM [employer] Elevated LFTs EGFR Routine 02/28/2025 3:30 PM CDT Essential hypertension THYROID FUNCTION CASCADE Routine 02/28/2025 3:30 PM CDT Essential hypertension LIPID PANEL Routine 02/28/2025 3:30 PM CDT Essential hypertension COMPREHENSIVE METABOLIC PANEL Routine 02/28/2025 3:30 PM CDT Essential hypertension ECG 12-LEAD Routine 02/28/2025 2:42 PM CDT Essential hypertension from Last 3 Months Results * CT Abdomen Pelvis W Contrast (03/10/2025 10:02 AM [employer]) Anatomical Region Laterality Modality Body N/A Computed Tomogra phy 03/10/2025 10:1 8 AM [employer] Impressions 03/10/2025 10:18 AM [employer] 1. Mild right hydronephrosis and hydroureter. No distal ureteral calculus seen. 2. Extensive bilateral urolithiasis, the largest a calculus right renal pelvis 1.7 seen with mild urothelial enhancement. 3. Few small colonic diverticula, no evidence of acute diverticulitis. Electronically signed by: Sylvester Petty M.D. Narrative 03/10/2025 10:18 AM [employer] EXAM DESCRIPTION: CT ABDOMEN PELVIS W CONTRAST [...] signed by: Sylvester Petty M.D. Tosha AYALA [facility] CT PROCEDURES Final Re sult * (ABNORMAL) Urinalysis reflex to microscopic and culture Urine (03/10/2025 9:26 AM [employer]) Color, ur Straw Yellow Clarity, ur Cloudy(A) Clear NANCY Specific gravity, ur 1.016 1.003 - 1.030 [facility] pH, urine 7.0 [facility] Comment: Interpretive Data U rine pH is affected by diet, medications, systemic acid-base disturbances, and renal tubular function. pH may affect urinary stone formation. For example, urine pH below 6.0 may help reduce the tendency for calcium phosphate stones and pH greater than 6.0 may reduce the tendency for uric acid stone formation. Source: [facility] Current Interpretive Data was last revised on 2017 Protein, ur ql Negative Negative [facility] Glucose, ur ql Negative Negative [facility] Ketones, ur Trace Negative [facility] Bilirubin, ur Negative Negative [facility] Blood, ur 3+(A) Negative [facility] Urobilinogen, ur <2.0 <2.0 mg/dL [facility] Nitrite, ur Negative Negative [facility] Leukocyte esterase, ur Negative Negative [facility] UA reflex comment Reflex to microscopic UA will be performed. [facility] Urine 03/10/2025 9:26 AM [employer] 03/10/2025 9:28 AM [employer] Tosha AYALA LAB MICROBIOLOGY - GENERAL ORDERABLES Final Result Performing Organization Address [facility] Co de Phone Number [address] [employer] [address] * (ABNORMAL) Urinalysis, microscopic only (03/10/2025 9:26 AM [employer]) WBC, ur 0-5 0 - 5 /HPF RBC, ur >50(A) 0 - 2 /HPF [facility] Mucous, ur Present(A) [facility] Culture Reflex Comment Reflex conditions for urine culture (WBC >10) not met. [facility] Urine 03/10/2025 9:26 AM [employer] 03/10/2025 9:28 AM [employer] Tosha AYALA LAB URINE ORDERABLES Final Result Performing Organization Address [facility] Co de Phone Number [place] [phone] [facility] [place] [address] * eGFR (03/10/2025 9:23 AM [employer]) [facility] eGFR >90 >=60 mL/min/1. 73 m2 Comment: [...] last reviewed 2021. Blood 03/10/2025 9:23 AM [employer] 03/10/2025 9:28 AM [employer] Tosha AYALA LAB BLOOD ORDERABLES Final Result NANCY [address] [facility] Department [place] [address] * Differential, auto (03/10/2025 9:23 AM [employer]) [facility] Neutrophil abs 3.32 1.50 - 6.50 K/cumm Imm gran abs 0.02 0.00 - 0.10 K/cumm [facility] Lymphocyte abs 1.95 0.80 - 3.30 K/cumm [facility] Monocyte abs 0.53 0.20 - 0.80 K/cumm [facility] Eosinophil abs 0.09 0.00 - 0.50 K/cumm [facility] Basophil abs 0.06 0.00 - 0.10 K/cumm [facility] Neutrophil pct 55.6 % [facility] Comment: Interpretive Data Percent cell count reference ranges are not reported, since discordance with absolute values may lead to misinterpretation of CBC data. Current Interpretive Data was last revised on 2017. Imm gran pct 0.3 % [facility] Comment: Interpretive Data Percent cell count reference ranges are not reported, since discordance with absolute values may lead to misinterpretation of CBC data. Current Interpretive Data was last revised on 2017. Lymphocyte pct 32.7 % [facility] Comment: Interpretive Data Percent cell count reference ranges are not reported, since discordance with absolute values may lead to misinterpretation of CBC data. Current Interpretive Data was last revised on 2017. Monocyte pct 8.9 % [facility] Comment: Interpretive Data Percent cell count reference ranges are not reported, since discordance with absolute values may lead to misinterpretation of CBC data. Current Interpretive Data was last revised on 2017. Eosinophil pct 1.5 % [facility] Comment: Interpretive Data Percent cell count reference ranges are not reported, since discordance with absolute values may lead to misinterpretation of CBC data. Current Interpretive Data was last revised on 2017. Basophil pct 1.0 % [facility] Comment: Interpretive Data Percent cell count reference ranges are not reported, since discordance with absolute values may lead to misinterpretation of CBC data. Current Interpretive Data was last revised on 2017. Blood 03/10/2025 9:23 AM [employer] 03/10/2025 9:28 AM [employer] Tosha AYALA LAB BLOOD ORDERABLES Final Result Performing Organization Address City/State/[facility] Co de Phone Number [facility] [address] [facility] Department [place] [address] * CBC with auto differential (03/10/2025 9:23 AM [employer]) WBC 5.97 3.80 - 9.90 K/cumm Hgb 15.7 13.0 - 17.5 g/dL [facility] Hct 47.6 38.9 - 50.3 % [facility] Plt 219 150 - 400 K/cumm [facility] MPV 10.6 9.1 - 12.3 fL [facility] RBC 5.26 4.30 - 5.80 M/cumm [facility] MCV 90.5 81.3 - 96.4 fL [facility] MCH 29.8 27.1 - 33.3 pg [facility] MCHC 33.0 32.3 - 35.7 g/dL [facility] RDW CV 12.7 11.1 - 14.9 % [facility] RDW SD 42.1 35.7 - 48.1 fL [facility] NRBC abs 0.00 0.00 - 0.01 K/cumm [facility] Blood Venous blood specimen / Unknown 03/10/2025 9:23 AM [employer] 03/10/2025 9:28 AM [employer] Tosha AYALA LAB BLOOD ORDERABLES Final Result Performing Organization Address City/[facility]/ZIP Co de Phone Number [address] [place] [address] * Lipase (03/10/2025 9:23 AM [employer]) [facility] Lipase 20 10 - 99 Units/L Blood Venous blood specimen / Unknown 03/10/2025 9:23 AM [employer] 03/10/2025 9:28 AM [employer] Tosha AYALA LAB BLOOD ORDERABLES Final Result Performing Organization Address [facility] de Phone Number [address] [address] * (ABNORMAL) Comprehensive metabolic panel (03/10/2025 9:23 AM [employer]) [facility] Sodium 140 135 - 145 mmol/L Potassium, pl 4.3 3.3 - 4.9 mmol/L [facility] Chloride 103 97 - 110 mmol/L [facility] CO2 27 22 - 32 mmol/L [facility] Anion gap 10 2 - 15 mmol/L [facility] BUN 16 6 - 25 mg/dL [facility] Creatinine 0.87 0.80 - 1.30 mg/dL [facility] Glucose 99 70 - 199 mg/dL [facility] Comment: Interpretive Data Fasting glucose >/= 126 [...] 2022. Calcium 9.5 8.5 - 10.3 mg/dL [facility] Bilirubin, total 0.6 0.1 - 1.2 mg/dL [facility] Protein, pl 7.1 6.5 - 8.5 g/dL [facility] Albumin 4.7 3.5 - 5.0 g/dL [facility] Alk phos 46 40 - 130 Units/L [facility] ALT 107(H) 7 - 55 Units/L [facility] AST 185(H) 10 - 50 Units/L [facility] Blood 03/10/2025 9:23 AM [employer] 03/10/2025 9:28 AM [employer] Tosha AYALA LAB BLOOD ORDERABLES Final Result Performing Organization Address City/State/[facility] Co de Phone Number NANCY [address] [facility] Department [place] [address] * US RUQ (03/10/2025 9:11 AM [employer]) Anatomical Region Laterality Modality Abdomen N/A Ultrasound 03/10/2025 9:13 AM [employer] Impressions 03/10/2025 9:13 AM [employer] 1. No evidence of acute abnormality. 2. Echogenic right renal calculi measuring up to 1.1 cm. Electronically signed by: Sylvester Petty M.D. Narrative 03/10/2025 9:13 AM [employer] EXAM DESCRIPTION: US RUQ REASON FOR STUDY: [...] microsome type 1 antibody (03/08/2025 5:28 PM [employer]) Pathologist [facility] LKM-1 <5.0 <=20.0 (Negative) Units [place] ref Lab Comment: Test Performed by: [facility] [address] [place] [address] Quarter Supervisor: Corrie Lopez Ph.D.; CLIA# [id number] Testing performed by: [facility], [address] [place] [address]., [id number] Blood 03/08/2025 5:28 PM [employer] 03/08/2025 5:30 PM [employer] [facility] LAB BLOOD ORDERABLES Final Re sult Performing Organization Address City/[facility]/ZIP Co de Phone Number NANCY [address] [place] [address] [place] ref Lab * Smooth muscle antibody, qualitative (03/08/2025 5:28 PM [employer]) [facility] Anti-smooth muscle Negative Negative Comment:Testing performed by : [facility], [address] [place]., [address] Blood 03/08/2025 5:28 PM [employer] 03/08/2025 7:15 PM [employer] [facility] LAB BLOOD ORDERABLES Final Re sult NANCY [address] [address] * Hepatitis panel, acute Blood (03/08/2025 5:28 PM [employer]) [facility] Hep A IgM Nonreactive Nonreactive Comment: Interpretive [...] on 19. Hep C Ab Nonreactive Nonreactive [facility] Comment: Antibodies to HCV not detected. Does [...] last revised on 2019. HepBsAg Nonreactive Nonreactive [facility] Blood 03/08/2025 5:28 PM [employer] 03/08/2025 6:35 PM [employer] Domenic Wade LAB MICROBIOLOGY - GENERAL OR DERABLES Final Result Performing Organization Address [facility] Co de Phone Number [address] [place] [address] * Acetaminophen level (03/08/2025 5:28 PM [employer]) Acetaminophen <5 <=5 mcg/mL Comment: Interpretive Data Significant hepatic injury may occur and treatment with n-acetyl cysteine is generally recommended if the acetaminophen level exceeds: 150 mcg/mL at 4 hours after ingestion 75 mcg/mL at 8 hours after ingestion 38 mcg/mL at 12 hours after ingestion 19 mcg/mL at 16 hours after ingestion Consult toxicology or poison control ([phone]) for unknown ingestion time. Current interpretive data was last revised 2023. Testing performed by: [facility], [address] [place] [address]., [id number] Blood 03/08/2025 5:28 PM [employer] 03/08/2025 5:30 PM [employer] Domenic Thayer[employer] Holding[employer]iffanie [facility] BLOOD ORDERABLES Final Re sult Performing Organization Address [facility] Co de Phone Number [address] [place] [address] * eGFR (03/07/2025 2:39 PM [employer]) eGFR >90 >=60 mL/min/1. 73 m2 Comment: [...] was last reviewed 2021. Testing performed by: [address] [address] Blood 03/07/2025 2:39 PM [employer] 03/07/2025 3:59 PM [employer] us Domenic Wade DO LAB BLOOD ORDERABLES Final Re sult NANCY [address] [facility] Department [place] [address] * Iron profile w/ IBC (03/07/2025 2:39 PM [employer]) Iron 82 50 - 150 mcg/dL Comment:Testing performed by : [address] [address] TIBC 327 250 - 400 mcg/dL NANCY SOFIA Comment:Testing performed by : [address] [address] Transferrin saturation 25 20 - 50 % NANCY Comment:Testing performed by : [address] [address] Blood 03/07/2025 2:39 PM [employer] 03/07/2025 3:59 PM [employer] Domenic Wade DO LAB BLOOD ORDERABLES Final Re sult NANCY [address] [facility] Department [place] [address] * (ABNORMAL) Comprehensive metabolic panel (03/07/2025 2:39 PM [employer]) Sodium 139 135 - 145 mmol/L Comment:Testing performed by : [address] [address] Potassium, pl 4.0 3.3 - 4.9 mmol/L NANCY Comment:Testing performed by : [address] [address] Chloride 99 97 - 110 mmol/L NANCY Comment:Testing performed by : [address] [address] CO2 27 22 - 32 mmol/L NANCY Comment:Testing performed by : [address] [address] Anion gap 13 2 - 15 mmol/L NANCY Comment:Testing performed by : [address] [address] BUN 15 6 - 25 mg/dL NANCY Comment:Testing performed by : [address] [address] Creatinine 0.80 0.80 - 1.30 mg/dL NANCY Comment:Testing performed by : [address] [address] Glucose 81 70 - 199 mg/dL NANCY [...] was last revised 2022. Testing performed by: [facility], [address] [place] [address]., [address] Calcium 9.8 8.5 - 10.3 mg/dL NANCY Comment:Testing performed by : [address] [address] Bilirubin, total 0.6 0.1 - 1.2 mg/dL NANCY Comment:Testing performed by : [address] [address] Protein, pl 7.5 6.5 - 8.5 g/dL NANCY Comment:Testing performed by : [address] [address] Albumin 5.1(H) 3.5 - 5.0 g/dL NANCY Comment:Testing performed by : [address] [address] Alk phos 48 40 - 130 Units/L NANCY Comment:Testing performed by : [address] [address] ALT 114(H) 7 - 55 Units/L NANCY Comment:Testing performed by : [address] [address] AST 338(H) 10 - 50 Units/L NANCY Comment:Testing performed by : [address] [address] Blood 03/07/2025 2:39 PM [employer] 03/07/2025 3:59 PM [employer] us Domenic Wade DO LAB BLOOD ORDERABLES Final Re sult NANCY SOFIA [address] [facility] Department [place] [address] * eGFR (02/28/2025 3:30 PM [...] was last reviewed 2021. Testing performed by: [address] [address] Blood 02/28/2025 3:30 PM CDT 02/28/2025 3:38 PM CDT us Domenic Wade DO LAB BLOOD ORDERABLES Final Re sult Performing Organization Address [facility] Co de Phone Number [address] [place] [address] * Thyroid Function [place] (02/28/2025 3:30 PM CDT) TSH 1.01 0.30 - 4.20 mcIUnit/mL Comment:Testing performed by : [address] [address] Blood 02/28/2025 3:30 PM CDT 02/28/2025 3:38 PM CDT us Domenic Wade DO LAB BLOOD ORDERABLES Final Re sult Performing Organization Address City/[facility] Co de Phone Number [address] [place] [address] * Lipid panel (02/28/2025 3:30 PM CDT) [...] last revised on 2017. Testing performed by: [address] [address] Triglycerides 52 <=149 mg/dL NANCY Comment: Interpretive [...] last revised on 2017. Testing performed by: [address] [address] HDL 61 >=40 mg/dL NANCY Comment: Interpretive [...] last revised on 2017. Testing performed by: [address] [address] LDL, calculated 104 <=129 mg/dL NANCY Comment: [...] last revised on 2023. Testing performed by: [address] [address] Non-HDL Cholesterol 114 mg/dL NANCY SOFIA Comment: [...] last revised on 2017. Testing performed by: [address] [address] Chol/HDL ratio 3 NANCY SOFIA Comment:Testing performed by : [address] [address] Blood 02/28/2025 3:30 PM CDT 02/28/2025 3:38 PM CDT us Domenic Wade DO LAB BLOOD ORDERABLES Final Re sult NANCY SOFIA [address] [facility] Department [place] [address] * (ABNORMAL) Comprehensive metabolic panel (02/28/2025 3:30 PM CDT) Sodium 140 135 - 145 mmol/L Comment:Testing performed by : [address] [address] Potassium, pl 4.1 3.3 - 4.9 mmol/L NANCY Comment:Testing performed by : [address] [address] Chloride 103 97 - 110 mmol/L NANCY Comment:Testing performed by : [address] [address] CO2 27 22 - 32 mmol/L NANCY Comment:Testing performed by : [address] [address] Anion gap 10 2 - 15 mmol/L NANCY Comment:Testing performed by : [address] [address] BUN 13 6 - 25 mg/dL NANCY Comment:Testing performed by : [address] [address] Creatinine 0.80 0.80 - 1.30 mg/dL NANCY Comment:Testing performed by : [address] [address] Glucose 89 70 - 199 mg/dL NANCY [...] was last revised 2022. Testing performed by: [address] [address] Calcium 9.4 8.5 - 10.3 mg/dL NANCY SOFIA Comment:Testing performed by : [address] [address] Bilirubin, total 0.5 0.1 - 1.2 mg/dL NANCY SOFIA Comment:Testing performed by : [address] [address] Protein, pl 6.8 6.5 - 8.5 g/dL NANCY Comment:Testing performed by : [address] [address] Albumin 4.8 3.5 - 5.0 g/dL NANCY Comment:Testing performed by : [address] [address] Alk phos 47 40 - 130 Units/L NANCY Comment:Testing performed by : [address] [address] ALT 86(H) 7 - 55 Units/L NANCY Comment:Testing performed by : [address] [address] AST 87(H) 10 - 50 Units/L NANCY Comment:Testing performed by : [address] [address] Blood 02/28/2025 3:30 PM CDT 02/28/2025 3:38 PM CDT us Domenic Wade DO LAB BLOOD ORDERABLES Final Re sult NANCY [facility] Department [place] [address] * ECG 12 lead (02/28/2025 2:42 PM CDT) us Domenic Wade DO ECG ORDERABLES Final Result from Last 3 Months Insurance [facility] Care Teams Operations Assistant Relationship Specialty Start Date End Date Domenic Wade DO [address] [facility] [address] [place] [address] PCP - General Family Medicine 02/28/25
[2025-03-23] MEDS: PHENAZOPYRIDINE HCL 100 MG TABLET 200 MG PO (03:57)
[2025-03-23] MEDS: HYDROmorphone HCL INJ (*CRX) 1 MG/ML SYR IV PUSH ×2 (03:57→05:37)
[2025-03-23] MEDS: SODIUM CHLORIDE 0.9% IV 1,000 ML 125 ML IV CONT (03:58)
[2025-03-23] MEDS: TAMSULOSIN HCL 0.4 MG CAPSULE PO (03:58)
--- NOTE | 2025-03-23 04:17 | WPCEDHO ---
ED Hand Off Checklist All vitals saved: Yes IV Site documented: Yes All med administrations documented: Yes Triage Note Triage Note Pt arrives to ED with c/o severe 03/23/25 00:17 back and lower abd pain. Pt states he had and kidney stone extraction and stent placement done earlier 03/22, afterwards he felt okay but this evening when he was urinating he felt a severe pain return. Pt states it was a complicated procedure and he had several kidney stones and they were not able to remove them all. Pt reports he had a dose of oxycodone around 2300 with no relief. Allergies No Known Allergies Allergy (Verified 03/22/25 23:59) Active Medications including assessments/comments Sodium Chloride (Normal Saline Iv) 1,000 mls @ 125 mls/hr IV CONT .Q8H BETI Last Admin: 03/23/25 03:58 Dose: 125 mls/hr Documented By: KARISSA Infusion/Titration Document 03/23/25 03:58 KARISSA (Rec: 03/23/25 03:58 KARISSA [id number]) Intake IV Site Peripheral Access Left Antecubital Container Volume 1,000 Waste Amount 0 Dosing Infusion Rate 125 Cumulative Dose Not Applicable Increase/Decrease Started Elapsed Time Elapsed Time ( 0m minutes) Administered/Completed Medications Discontinued Medications Hydromorphone HCl (Hydromorphone Hcl Inj (*Crx) 1 Mg/Ml Syr) 1 mg IV PUSH ONCE STA Stop: 03/23/25 03:02 Last Admin: 03/23/25 03:57 Dose: 1 mg Documented By: KARISSA Sodium Chloride (Normal Saline Iv) 1,000 mls @ 999 mls/hr IV CONT .Q1H1M STA Stop: 03/23/25 01:33 Last Infusion: 03/23/25 01:56 Dose: Infused Documented By: Admin: 03/23/25 00:48 Dose: 999 mls/hr Documented By: KARISSA Ketorolac Tromethamine (Ketorolac 30 Mg/Ml Vial (*Bkc)) 30 mg IV PUSH ONCE STA Stop: 03/23/25 00:56 Last Admin: 03/23/25 01:07 Dose: 30 mg Documented By: KARISSA Morphine Sulfate (Morphine Sulfate (*Crx) 4 Mg/Ml Inj) 4 mg IV PUSH ONCE STA Stop: 03/23/25 00:34 Last Admin: 03/23/25 00:46 Dose: 4 mg Documented By: KARISSA Morphine Sulfate (Morphine Sulfate (*Crx) 4 Mg/Ml Inj) 4 mg IV PUSH ONCE STA Stop: 03/23/25 01:56 Last Admin: 03/23/25 02:02 Dose: 4 mg Documented By: KARISSA Ondansetron HCl (Ondansetron Inj 4 Mg/2 Ml Vial) 4 mg IV PUSH ONCE STA Stop: 03/23/25 00:34 Last Admin: 03/23/25 00:47 Dose: 4 mg Documented By: KARISSA Phenazopyridine HCl (Phenazopyridine Hcl 100 Mg Tablet) 200 mg PO ONCE ONE Stop: 03/23/25 03:02 Last Admin: 03/23/25 03:57 Dose: 200 mg Documented By: KARISSA Tamsulosin HCl (Tamsulosin Hcl 0.4 Mg Capsule) 0.4 mg PO ONCE ONE Stop: 03/23/25 03:10 Last Admin: 03/23/25 03:58 Dose: 0.4 mg Documented By: AKRISSA Interventions/Assessments IV / Saline Lock, Insert Start: 03/23/25 00:26 Freq: STAT Status: Active Protocol: Document 03/23/25 00:48 KARISSA (Rec: 03/23/25 00:48 KARISSA [id number]) IV Assessment Peripheral Access Left Antecubital IV Catheter Access Initiated IV Insertion Date 03/23/25 IV Insertion Time 00:48 Catheter Gauge 18 IV Insertion 1 Attempts IV Site Assessment WNL IV Care and WNL Maintenance PA: Genitourinary Assessment Start: 03/22/25 23:58 Freq: Status: Active Protocol: Document 03/23/25 04:15 KARISSA (Rec: 03/23/25 04:16 KARISSA [id number]) Assessment Genitourinary Flank Pain Symptoms Voiding Method Toilet Last Vital Signs Temperature 97.7 F 03/23/25 00:17 Pulse Rate 55 L 03/23/25 04:16 Respiratory Rate 18 03/23/25 04:16 Pulse Oximetry 96 03/23/25 04:16 Blood Pressure 154/62 H 03/23/25 04:16 Blood Pressure Mean 92 03/23/25 04:16 Blood Pressure Position Supine 03/23/25 04:16 Oxygen Delivery Room Air 03/23/25 00:17 Weight 86.3 kg 03/23/25 00:17 Last Result - Abnormals Only WBC 18.1 K/mm3 (4.5-10.0) H 03/23/25 00:29 MPV 10.5 fl (7.4-10.4) H 03/23/25 00:29 Immature Gran % (Auto) 1.2 % (0-0.5) H 03/23/25 00: Neut % (Auto) 80.9 % (45.5-73.1) H 03/23/25 00:29 Lymph % (Auto) 10.0 % (18.3-44.2) L 03/23/25 00: [place] # (Auto) 1.4 K/mm3 (0.1-0.6) H 03/23/25 00:29 Abs Immat Gran (auto) 0.21 K/mm3 (0.00-0.031) H 03/23/25 00:29 Absolute Neuts (auto) 14.6 K/mm3 (1.3-6.7) H 03/23/25 00:29 Sodium 134 mmol/L (137-145) L 03/23/25 00:29 Carbon Dioxide 19 mmol/L (22-30) L 03/23/25 00:29 Glucose 135 mg/dL (65-110) H 03/23/25 00:29 Lactic Acid 2.2 mmol/L (0.7-2.0) H 03/23/25 00:32 ALT 51 U/L (6-50) H 03/23/25 00:29 Most Recent Suicide Severity Rating Suicide Severity Rating NO RISK INDICATED 03/23/25 00:17
--- NOTE | 2025-03-23 04:20 | PC.NURSE ---
Pt stating he is unable to urinate due to being severe pain, declining straight cath. EDP made aware.
--- NOTE | 2025-03-23 04:23 | PC.NURSE ---
Pt's BP elevated due to severe pain, EDP made aware
--- NOTE | 2025-03-23 05:00 | ADMGEN ---
This patient, Libra Kapoor, was admitted to [facility] Surg Room 325-01. Patient/family oriented to hospital policies and general routines including ID bracelet, bed and alarms, visiting hours, pain management, procedures, bathroom and other care routines, personal items, smoking policy, room service/diet, and visiting hours. Information on how to activate the Rapid Response Team has been discussed. Patient/Family are encouraged to report perceived risks to care and to ask questions if they do not understand what they are told or what they should do.
--- NOTE | 2025-03-23 07:24 | PM.IMHP ---
H&P: HPI History of Present Illness Date/Time: 03/23/25 07:24 Chief Complaint: Right flank pain, irritable voiding Narrative: Please young man with history of recurrent urolithiasis underwent ureteroscopy with extensive lithotripsy of a large right renal pelvic stone yesterday. He was doing well until about 11:00 p.m. when he developed acute right flank pain and notable increase in irritable voiding. This became intractable, prompting presentation the emergency department. He denied fevers chills but did report scant hematuria. CT and KUB imaging shows that the right ureteral stent has migrated into the right mid ureter and there is evidence of ureteral obstruction proximal to this. Review of Systems Review of Systems: All systems reviewed & are unremarkable except as noted in HPI and below PMFSH Past Medical History Medical History Urolithiasis Family History Family History (Updated 03/23/25 @ 07:05 by Xena Melara RN) Other No significant family history Social History Social History Smoking status: Never smoker Alcohol intake: never Drinks per week: 2 Substance use: never Lack of Transportation: No Lack of Food: Never True Current Housing: I Have Housing Concerned About Future Housing: No Difficulty Paying Gas/Electric Bills: No Difficulty Paying for Meds: No Currently Unemployed: No Education: Master's Degree or Higher Difficulty w/ Childcare or Family Care: No Living arrangements: with family Spiritual care concerns: No Meds Home Medications and Allergies Home Medications ?Medication ?Instructions ?Recorded ?Confirmed ?Type oxycodone 5 mg tablet 5 mg PO HS 03/15/25 03/23/25 History tamsulosin 0.4 mg capsule 0.4 mg PO DAILY 03/15/25 03/23/25 History telmisartan 20 mg tablet 20 mg PO DAILY 03/15/25 03/23/25 History ibuprofen 400 mg tablet 400 mg PO Q6H PRN pain #20 tabs 03/22/25 03/23/25 Rx oxybutynin chloride 5 mg tablet 5 mg PO TID PRN bladder spasms #20 03/22/25 03/23/25 Rx tabs oxycodone 5 mg tablet 5 mg PO Q4H PRN pain #7 tabs 03/22/25 03/23/25 Rx tamsulosin 0.4 mg capsule (Flomax) 0.4 mg PO DAILY #14 caps 03/22/25 03/23/25 Rx Allergies Allergy/AdvReac Type Severity Reaction Status Date / Time No Known Allergies Allergy Verified 03/23/25 05:09 Vital Signs Vital Signs - 24 hr 03/23/25 00:17 03/23/25 04:16 03/23/25 05:00 Temperature 97.7 F Pulse Rate 82 55 L 54 L Respiratory Rate 26 H 18 18 Blood Pressure 154/123 H 154/62 H 156/70 H Pulse Oximetry 100 96 100 Oxygen Delivery Room Air 03/23/25 05:12 03/23/25 06:00 Temperature 97.0 F L Pulse Rate 52 L Respiratory Rate 16 Blood Pressure 134/66 Pulse Oximetry 99 Oxygen Delivery Room Air Exam Const: General: no acute distress Resp: Effort & Inspection: normal respiratory effort GI: Inspection: non-distended GI Palp: No abdominal tenderness and No Guarding due to palpation present (GI) Auscultation: normal bowel sounds H&P: Results Labs Labs: Short CBC 03/23/25 Range/Units 00:29 WBC 18.1 H (4.5-10.0) K/mm3 Hgb 14.7 (14.0-18.0) g/dL Hct 42.6 (42.0-52.0) % Plt Count 240 (150-375) k/mm3 [facility] 03/23/25 00:29 Sodium 134 L Potassium 4.4 Chloride 104 Carbon Dioxide 19 L BUN 16 Creatinine 1.02 Glucose 135 H Calcium 9.3 Liver Function 03/23/25 Range/Units 00:29 Total Bilirubin 1.1 (0.2-1.3) mg/dL AST 47 (17-59) U/L ALT 51 H (6-50) U/L Alkaline Phosphatase 52 (38-126) U/L Albumin 4.8 (3.5-5.1) g/dL Assessment and Plan Assessment and plan (1) Ureterolithiasis: Code(s): N20.1 - Calculus of ureter Status: Acute Assessment and Plan: Postop migration of right ureteral stent in to right mid ureter with resultant ureteral obstruction Will plan cystoscopy with right ureteral stent replacement/repositioning this morning.
[2025-03-23] MEDS: LACTATED RINGERS 1,000 ML 30 ML IV CONT (09:05)
--- NOTE | 2025-03-23 09:41 | WPDANESEPPF ---
Anes - Initial Pre Proc Eval Procedure: Operation Date: 03/23/25 10:00 Proposed Procedures p Cystoscopy, Right Stent Removal and Replacement - Shyla Donaldson MD Date/Time: 03/23/25 09:41 Surgeon: Manuel Jones MD Pre Op Diagnosis: Post op pain, Ureterolithiasis Patient Data Age: 29 Gender: M Height: 1.83 m Weight: 86.7 kg Last Vital Signs Temp 37.5 C 03/23/25 09:05 Pulse 55 L 03/23/25 09:05 Resp 16 03/23/25 09:05 BP 128/72 03/23/25 09:05 Pulse Ox 99 03/23/25 09:05 O2 Del Method Room Air 03/23/25 09:05 Allergies Allergy/AdvReac Type Severity Reaction Status Date / Time No Known Allergies Allergy Verified 03/23/25 09:38 Home Medications ?Medication ?Instructions ?Recorded ?Confirmed ?Type oxycodone 5 mg tablet 5 mg PO HS 03/15/25 03/23/25 History tamsulosin 0.4 mg capsule 0.4 mg PO DAILY 03/15/25 03/23/25 History telmisartan 20 mg tablet 20 mg PO DAILY 03/15/25 03/23/25 History ibuprofen 400 mg tablet 400 mg PO Q6H PRN pain #20 tabs 03/22/25 03/23/25 Rx oxybutynin chloride 5 mg tablet 5 mg PO TID PRN bladder spasms #20 03/22/25 03/23/25 Rx tabs oxycodone 5 mg tablet 5 mg PO Q4H PRN pain #7 tabs 03/22/25 03/23/25 Rx tamsulosin 0.4 mg capsule (Flomax) 0.4 mg PO DAILY #14 caps 03/22/25 03/23/25 Rx Laboratory Tests 03/23/25 03/23/25 03/23/25 00:29 00:32 02:42 WBC 18.1 H K/mm3 (4.5-10.0) RBC 4.89 M/mm3 (4.6-6.20) Hgb 14.7 g/dL (14.0-18.0) Hct 42.6 % (42.0-52.0) MCV 87.1 fl (80-100) MCH 30.1 pg (26-34) MCHC 34.5 g/dl (32-36) RDW 12.7 % (11.5-14.5) Plt Count 240 k/mm3 (150-375) MPV 10.5 H fl (7.4-10.4) Immature Gran % (Auto) 1.2 H % (0-0.5) Neut % (Auto) 80.9 H % (45.5-73.1) Lymph % (Auto) 10.0 L % (18.3-44.2) [place] % (Auto) 7.7 % (2.6-8.5) Eos % (Auto) 0.0 % (0-4.4) Baso % (Auto) 0.2 % (0.2-1.2) Lymph # (Auto) 1.80 K/mm3 (0.9-3.2) [place] # (Auto) 1.4 H K/mm3 (0.1-0.6) Eos # (Auto) 0.0 K/mm3 (0-0.3) Baso # (Auto) 0.0 K/mm3 (0.0-0.1) Abs Immat Gran (auto) 0.21 H K/mm3 (0.00-0.031) Absolute Neuts (auto) 14.6 H K/mm3 (1.3-6.7) Absolute Nucleated RBC 0.000 K/mm3 (0.0-0.012) Nucleated RBC % 0.0 % (0.0-0.2) Sodium 134 L mmol/L (137-145) Potassium 4.4 mmol/L (3.4-5.0) Chloride 104 mmol/L (98-107) Carbon Dioxide 19 L mmol/L (22-30) Anion Gap 11 mmol/L (4-12) BUN 16 mg/dL (9-20) Creatinine 1.02 mg/dL (0.7-1.3) Estim Creat Clear Calc 102 ml/min Estimated GFR > 60 (59 - ) Glucose 135 H mg/dL (65-110) Lactic Acid 2.2 H mmol/L 1.1 mmol/L (0.7-2.0) (0.7-2.0) Calcium 9.3 mg/dL (8.4-10.2) Total Bilirubin 1.1 mg/dL (0.2-1.3) AST 47 U/L (17-59) ALT 51 H U/L (6-50) Alkaline Phosphatase 52 U/L (38-126) Total Protein 7.4 g/dL (6.3-8.2) Albumin 4.8 g/dL (3.5-5.1) Lipase 34 U/L (23-300) Urine Color Urine Appearance Urine pH Ur Specific [place] Urine Protein Urine Glucose (UA) Urine Ketones Ur Blood (Man) Urine Nitrate Urine Bilirubin Urine Urobilinogen Leukocyte Esterase Rfl 03/23/25 09:34 WBC RBC Hgb Hct MCV MCH MCHC RDW Plt Count MPV Immature Gran % (Auto) Neut % (Auto) Lymph % (Auto) [place] % (Auto) Eos % (Auto) Baso % (Auto) Lymph # (Auto) [place] # (Auto) Eos # (Auto) Baso # (Auto) Abs Immat Gran (auto) Absolute Neuts (auto) Absolute Nucleated RBC Nucleated RBC % Sodium Potassium Chloride Carbon Dioxide Anion Gap BUN Creatinine Estim Creat Clear Calc Estimated GFR Glucose Lactic Acid Calcium Total Bilirubin AST ALT Alkaline Phosphatase Total Protein Albumin Lipase Urine Color Pending Urine Appearance Pending Urine pH Pending Ur Specific [place] Pending Urine Protein Pending Urine Glucose (UA) Pending Urine Ketones Pending Ur Blood (Man) Pending Urine Nitrate Pending Urine Bilirubin Pending Urine Urobilinogen Pending Leukocyte Esterase Rfl Pending Patient hx anesthesia problems: none Family hx anesthesia problems: none Results Review: All pre-operative results and documents have been reviewed as part of the pre-operative evaluation. [facility] Past Medical History Medical History Urolithiasis Family History Family History Other No significant family history Social History Social History Smoking status: Never smoker Alcohol intake: never Drinks per week: 2 Substance use: never Lack of Transportation: No Lack of Food: Never True Current Housing: I Have Housing Concerned About Future Housing: No Difficulty Paying Gas/Electric Bills: No Difficulty Paying for Meds: No Currently Unemployed: No Education: Master's Degree or Higher Difficulty w/ Childcare or Family Care: No Living arrangements: with family Spiritual care concerns: No Anes - Eval Final PreProcedure Day of Procedure 03/23/25 09:41 Patient weight: normal Heart: regular rate and rhythm Lungs: clear to auscultation Airway: Mallampati scale class 1 Neurological: alert and oriented Last oral intake: >/= 8 hours ASA classification: II Emergent: no Anesthetic plan: proceed Anesthesia type and monitoring: general GIVS and LMA and standard monitoring Results Review: All pre-operative results and documents have been reviewed as part of the pre-operative evaluation. Informed Consent: The patient's anesthetic plan and its attendant risks and benefits were discussed with the patient/family/POA. Questions were solicited and answers provided to the satisfaction of the patient/family/POA.
[2025-03-23 10:00] LABS: Add Urine Microscopic? YES; Appearance Urine Cloudy (Clear); Glucose Urine UA Negative (Negative); Leukocyte Esterase Ur 1+ LEU/UL (Negative); Need Manual Microscopic Reviewed; Nitrate Urine Positive (Negative); Non Pathogenic Casts 0-2; Specific Grav Ur > 1.045 (1.001-1.035)
--- NOTE | 2025-03-23 10:27 | WPDHPUPDATE1 ---
History and Physical Update Update Date/Time: 03/23/25 10:27 History and Physical has been reviewed, including an updated exam of the patient. There are NO changes in the patient's condition. Plan cystoscopy, right retrograde pyelogram, right ureteral stent placement/exchange Risks, benefits, and alternatives have been discussed and questions answered. Patient agrees to proceed with procedure.
[2025-03-23] MEDS: ceFAZolin 2 GM in SODIUM CHLORIDE 0.9% IV 50 ML 100 ML IVPB (10:39)
[2025-03-23] MEDS: LIDOCAINE 2% GEL UROJET 10 ML PKG MUCOUS MEM (10:49)
--- NOTE | 2025-03-23 12:35 | P.OP_ITS ---
Procedure Note - Detailed Date of Procedure 03/24/25 Pre-op Diagnosis Post op pain, Ureterolithiasis Stent migration Post-op Diagnosis Same Procedure Performed Cystoscopy, right ureteral stent exchange Surgeon Shyla Donaldson MD Anesthesia General Indications Mr. Kapoor is a 29 year-old male, status post right ureteroscopy with laser lithotripsy, who presented with acute right flank pain, found to have a migrated right ureteral stent. He presents for stent exchange Findings Right proximal ureteral stone, mild to moderate right hydronephrosis, stent dislodgement Description of Procedure The patient was correctly identified and informed consent was obtained. He was taken to the operating room and placed in the dorsal lithotomy position.He was prepped and draped in the standard fashion. Rigid cystoscopy was performed. The bladder mucosa appeared normal.The right ureteral stent was identified, grasped and pulled to the meatus. Through the ureteral stent a Sensor guidewire was passed into the kidney. Fluoroscopy revealed retained contrast and mild to moderate right hydroureteronephrosis to the proximal ureter where an obstructing stone was noted. A 6Fx 28cm ureteral stent was passed into the kidney and an incomplete coil with abnormal lie was noted in the upper pole. Due to prior stent migration, the decision was made to replace the stent to form an adequate coil. The stent was then exchanged, however resistance was noted at the level of the stone and likely due to the stone and edema, the 6Fr stent was not easily replaced. Several attempts to replace the stent, including over a Superstiff olivia dewire were unsuccessful. At this time the decision was made to replace a new 4.8Fr stent. Of note, the proximal ends of the stents did not retain their coil. Therefore a 4.8Fr stent was placed, placing the distal end in the kidney to retain the coil. The patient tolerated the procedure well. Plan treatment of remaining right renal stones, in the next 2-4 weeks' time. Implants 4,8Fr ureteral stent Estimated Blood Loss 0 Urine Output 750 Pathology None sent Condition Stable Disposition PACU
[2025-03-23] MEDS: oxyCODONE HCL (*CRX) 5 MG TAB IR PO (13:46)
== END 2025-03-23 16:00 | disposition home or self-care (01) ==
LOC: ANHED 03-23 01:08 → ANH3MEDSUR 03-23 04:01
PROVIDERS: Urology; Admitting Provider Urology; Emergency Provider Student in an Organized Health Care Education/Training Program; Visit Provider Urology
PROC: (CPT 52352; principal; 2025-03-23 10:00)
DX: T83.193A Other mechanical complication of other urinary stent, initial encounter (principal); G89.18 Other acute postprocedural pain; N20.1 Calculus of ureter
CPT/HCPCS: 52332; 36415; 74018; 74177; 74420; 80053; 81001; 83605; 83690; 85025; 87086; 96361; 96365; 96374; 96375; 96376; 99285; J0690; A9270; C1758; C1769; C2617; G0378; J1100; J1171; J1885; J2003; J2250; J2270; J2405; J2704; J3010; J7030; J7120; Q9967

== ENCOUNTER 2025-04-11 14:10 | Outpatient (CLI) | payer OTHER, SELFPAY ==
[2025-04-11 15:20] LABS: INR 1.0; Prothrombin Time 12.9 Seconds (11.1-14.7)
[2025-04-11 15:21] LABS: Partial Thromboplastin Time 30.7 Seconds (22.3-36.8)
--- OUTSIDE RECORDS SUMMARY | 2025-04-11 16:21 | XMS_ITS | Clinical Summary ---
Author Organization [facility] Address [address] [facility] [address] [place] [address] Phone Care Team Providers Care Site Supervisor Name Role Phone SelamDomenic moreno Primary Care Provider [phone] Allergies Active Allergy Reactions Criticality Noted Date [...] mg total) by mouth daily Thyroid Function Walton; Future Lipid panel; Future Comprehensive metabolic panel; Future ECG 12 lead Basic metabolic panel; Future ADHD (attention deficit hype ractivity disorder), combined type 04/16/2015 Encounters Date Type Department Care Team Description 04/04/2025 Telephone [facility] Family Medicine [address] [place] [phone] Domenic Wade DO verify cancellation of appointment 03/15/[address] [phone] Domenic Wade DO Medical Records Request 03/13/[address] [phone] Domenic Wade DO 03/10/2025 10:18 AM [employer] - 03/10/2025 12:15 PM [employer] Emergency [address] [address] Transaminitis (Primary Dx); Hydronephrosis, unspecified hydronephrosis type Discharge Disposition: Discharge to home or self care 03/10/2025 8:11 AM [employer] - 03/10/2025 11:59 PM [employer] Hospital Encounter [address] [address] Elevated LFTs Discharge Disposition: Discharge to home or self care 03/10/2025 Results Follow-Up [address] [phone] Domenic Wade DO US RUQ, Acetaminophen level, Liver/kidney microsome type 1 antibody, Additional followed-up results: 2 03/08/2025 5:05 PM [employer] Lab [facility] Lab [address] [place] [address] Elevated LFTs 03/08/2025 Results Follow-Up [address] [phone] Domenic Wade DO Comprehensive metabolic panel, eGFR 03/07/2025 2:35 PM [employer] Lab [facility] Lab [address] [place] [address] Elevated LFTs 03/01/2025 Results Follow-Up [address] [phone] Domenic Wade DO Comprehensive metabolic panel, Lipid panel, Thyroid Function Walton, eGFR 02/28/2025 3:15 PM CDT Lab 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 Not on file Not on file Last Filed Vital Signs Vital Sign Reading Time Taken Comments Blood Pressure 131/85 03/10/2025 12:00 PM [employer] Pulse 52 03/10/2025 12:00 PM [employer] Temperature 36.8 C (98.2 F) 03/10/2025 9:05 AM [employer] Respiratory Rate 18 03/10/2025 12:00 PM [employer] Oxygen Saturation 100% 03/10/2025 12:00 PM [employer] Inhaled Oxygen Concentration - - Weight 86.2 kg (190 lb) 03/10/2025 9:20 AM [employer] Height 180.3 cm (5' 11) 02/28/2025 2:14 [...] PELVIS W CONTRAST ED 03/10/2025 10:02 AM [employer] URINALYSIS, MICROSCOPIC ONLY STAT 03/10/2025 9:26 AM [employer] URINALYSIS AND REFLEX TO MICROSCOPIC AND CULTURE STAT 03/10/2025 9:26 AM [employer] EGFR STAT 03/10/2025 9:23 AM [employer] DIFFERENTIAL AUTO STAT 03/10/2025 9:2 3 AM [employer] LIPASE STAT 03/10/2025 9:23 AM [employer] COMPREHENSIVE METABOLIC PANEL STAT 03/10/2025 9:23 AM [employer] CBC WITH AUTO DIFFERENTIAL STAT 03/10/2025 9:23 AM [employer] US RUQ Schedule Routine, Read Routine (OP Routine) 03/10/2025 9:11 AM [employer] Elevated LFTs SMOOTH MUSCLE ANTIBODY, QUALITATIVE Routine 03/08/2025 5:28 PM [employer] Elevated LFTs LIVER/KIDNEY MICROSOME TYPE 1 AB Routine 03/08/2025 5:28 PM [employer] Elevated LFTs ACETAMINOPHEN LEVEL Routine 03/08/2025 5 :28 PM [employer] Elevated LFTs HEPATITIS PANEL, ACUTE Routine 03/08/2025 5:28 PM [employer] Elevated LFTs IRON PROFILE W/ IBC Routine 03/07/2025 2 :39 PM [employer] Elevated LFTs EGFR Routine 03/07/2025 2:39 PM [employer] Elevated LFTs COMPREHENSIVE METABOLIC PANEL Routine 03/07/2025 2:39 PM [employer] Elevated LFTs EGFR Routine 02/28/2025 3:30 PM CDT Essential hypertension THYROID FUNCTION CASCADE Routine 02/28/2025 3:30 PM CDT Essential hypertension LIPID PANEL Routine 02/28/2025 3:30 PM CDT Essential hypertension COMPREHENSIVE METABOLIC PANEL Routine 02/28/2025 3:30 PM CDT Essential hypertension ECG 12-LEAD Routine 02/28/2025 2:42 PM CDT Essential hypertension from Last 3 Months Results * CT Abdomen Pelvis W Contrast (03/10/2025 10:02 AM [employer]) Anatomical Region Laterality Modality Body N/A Computed Tomogra phy 03/10/2025 10:1 8 AM [employer] Impressions 03/10/2025 10:18 AM [employer] 1. Mild right hydronephrosis and hydroureter. No distal ureteral calculus seen. 2. Extensive bilateral urolithiasis, the largest a calculus right renal pelvis 1.7 seen with mild urothelial enhancement. 3. Few small colonic diverticula, no evidence of acute diverticulitis. Electronically signed by: Sylvester Petty M.D. Narrative 03/10/2025 10:18 AM [employer] EXAM DESCRIPTION: CT ABDOMEN PELVIS W CONTRAST [...] signed by: Sylvester Petty M.D. Tosha AYALA IM CT PROCEDURES Final Re sult * (ABNORMAL) Urinalysis reflex to microscopic and culture Urine (03/10/2025 9:26 AM [employer]) Color, ur Straw Yellow Clarity, ur Cloudy(A) Clear [facility] Specific gravity, ur 1.016 1.003 - 1.030 [facility] pH, urine 7.0 [facility] Comment: Interpretive Data U rine pH is affected by diet, medications, systemic acid-base disturbances, and renal tubular function. pH may affect urinary stone formation. For example, urine pH below 6.0 may help reduce the tendency for calcium phosphate stones and pH greater than 6.0 may reduce the tendency for uric acid stone formation. Source: [facility] Current Interpretive Data was last revised on 2017 Protein, ur ql Negative Negative [facility] Glucose, ur ql Negative Negative [facility] Ketones, ur Trace Negative [facility] Bilirubin, ur Negative Negative [facility] Blood, ur 3+(A) Negative [facility] Urobilinogen, ur <2.0 <2.0 mg/dL [facility] Nitrite, ur Negative Negative [facility] Leukocyte esterase, ur Negative Negative [facility] UA reflex comment Reflex to microscopic UA will be performed. [facility] Urine 03/10/2025 9:26 AM [employer] 03/10/2025 9:28 AM [employer] Tosha AYALA LAB MICROBIOLOGY - GENERAL ORDERABLES Final Result [place] [id number] [facility] Department [place] [address] * (ABNORMAL) Urinalysis, microscopic only (03/10/2025 9:26 AM [employer]) WBC, ur 0-5 0 - 5 /HPF RBC, ur >50(A) 0 - 2 /HPF [facility] Mucous, ur Present(A) [facility] Culture Reflex Comment Reflex conditions for urine culture (WBC >10) not met. [facility] Urine 03/10/2025 9:26 AM [employer] 03/10/2025 9:28 AM [employer] Tosha AYALA LAB URINE ORDERABLES Final Result Performing Organization Address [facility] Co de Phone Number NANCY [address] [address] * eGFR (03/10/2025 9:23 AM [employer]) Pathologist [facility] eGFR >90 >=60 mL/min/1. 73 m2 Comment: [...] last reviewed 2021. Blood 03/10/2025 9:23 AM [employer] 03/10/2025 9:28 AM [employer] Tosha AYALA LAB BLOOD ORDERABLES Final Result Performing Organization Address [facility] Co de Phone Number NANCY [address] [place] [address] * Differential, auto (03/10/2025 9:23 AM [employer]) Pathologist [facility] Neutrophil abs 3.32 1.50 - 6.50 K/cumm Imm gran abs 0.02 0.00 - 0.10 K/cumm [facility] Lymphocyte abs 1.95 0.80 - 3.30 K/cumm [facility] Monocyte abs 0.53 0.20 - 0.80 K/cumm [facility] Eosinophil abs 0.09 0.00 - 0.50 K/cumm [facility] Basophil abs 0.06 0.00 - 0.10 K/cumm [facility] Neutrophil pct 55.6 % [facility] Comment: Interpretive Data Percent cell count reference ranges are not reported, since discordance with absolute values may lead to misinterpretation of CBC data. Current Interpretive Data was last revised on 2017. Imm gran pct 0.3 % [facility] Comment: Interpretive Data Percent cell count reference ranges are not reported, since discordance with absolute values may lead to misinterpretation of CBC data. Current Interpretive Data was last revised on 2017. Lymphocyte pct 32.7 % [facility] Comment: Interpretive Data Percent cell count reference ranges are not reported, since discordance with absolute values may lead to misinterpretation of CBC data. Current Interpretive Data was last revised on 2017. Monocyte pct 8.9 % [facility] Comment: Interpretive Data Percent cell count reference ranges are not reported, since discordance with absolute values may lead to misinterpretation of CBC data. Current Interpretive Data was last revised on 2017. Eosinophil pct 1.5 % [facility] Comment: Interpretive Data Percent cell count reference ranges are not reported, since discordance with absolute values may lead to misinterpretation of CBC data. Current Interpretive Data was last revised on 2017. Basophil pct 1.0 % [facility] Comment: Interpretive Data Percent cell count reference ranges are not reported, since discordance with absolute values may lead to misinterpretation of CBC data. Current Interpretive Data was last revised on 2017. Blood 03/10/2025 9:23 AM [employer] 03/10/2025 9:28 AM [employer] Tosha AYALA LAB BLOOD ORDERABLES Final Result [facility] [address] [facility] Department [place] [address] * CBC with auto differential (03/10/2025 9:23 AM [employer]) WBC 5.97 3.80 - 9.90 K/cumm Hgb 15.7 13.0 - 17.5 g/dL [facility] Hct 47.6 38.9 - 50.3 % [facility] Plt 219 150 - 400 K/cumm [facility] MPV 10.6 9.1 - 12.3 fL [facility] RBC 5.26 4.30 - 5.80 M/cumm [facility] MCV 90.5 81.3 - 96.4 fL [facility] MCH 29.8 27.1 - 33.3 pg [facility] MCHC 33.0 32.3 - 35.7 g/dL [facility] RDW CV 12.7 11.1 - 14.9 % [facility] RDW SD 42.1 35.7 - 48.1 fL [facility] NRBC abs 0.00 0.00 - 0.01 K/cumm [facility] Blood Venous blood specimen / Unknown 03/10/2025 9:23 AM [employer] 03/10/2025 9:28 AM [employer] Tosha AYALA LAB BLOOD ORDERABLES Final Result Performing Organization Address [facility] de Phone Number [address] [place] [address] * Lipase (03/10/2025 9:23 AM [employer]) [facility] Lipase 20 10 - 99 Units/L Blood Venous blood specimen / Unknown 03/10/2025 9:23 AM [employer] 03/10/2025 9:28 AM [employer] Tosha AYALA LAB BLOOD ORDERABLES Final Result Performing Organization Address [facility] de Phone Number [address] [place] [address] * (ABNORMAL) Comprehensive metabolic panel (03/10/2025 9:23 AM [employer]) [facility] Sodium 140 135 - 145 mmol/L Potassium, pl 4.3 3.3 - 4.9 mmol/L [facility] Chloride 103 97 - 110 mmol/L [facility] CO2 27 22 - 32 mmol/L [facility] Anion gap 10 2 - 15 mmol/L [facility] BUN 16 6 - 25 mg/dL [facility] Creatinine 0.87 0.80 - 1.30 mg/dL [facility] Glucose 99 70 - 199 mg/dL [facility] Comment: Interpretive Data Fasting glucose >/= [...] 2022. Calcium 9.5 8.5 - 10.3 mg/dL [facility] Bilirubin, total 0.6 0.1 - 1.2 mg/dL [facility] Protein, pl 7.1 6.5 - 8.5 g/dL [facility] Albumin 4.7 3.5 - 5.0 g/dL [facility] Alk phos 46 40 - 130 Units/L [facility] ALT 107(H) 7 - 55 Units/L [facility] AST 185(H) 10 - 50 Units/L [facility] Blood 03/10/2025 9:23 AM [employer] 03/10/2025 9:28 AM [employer] Tosha AYALA LAB BLOOD ORDERABLES Final Result Performing Organization Address City/State/[facility] Co de Phone Number [facility] [address] [facility] Department [place] [address] * US RUQ (03/10/2025 9:11 AM [employer]) Anatomical Region Laterality Modality Abdomen N/A Ultrasound 03/10/2025 9:13 AM [employer] Impressions 03/10/2025 9:13 AM [employer] 1. No evidence of acute abnormality. 2. Echogenic right renal calculi measuring up to 1.1 cm. Electronically signed by: Sylvester Petty M.D. Narrative 03/10/2025 9:13 AM [employer] EXAM DESCRIPTION: US RUQ REASON FOR STUDY: [...] to 1.1 cm. Electronically signed by: Sylvester Jovanny, M.D. us Domenic Wade DO IMG US PROCEDURES Final Resul t * Liver/kidney microsome type 1 antibody (03/08/2025 5:28 PM [employer]) Pathologist [facility] LKM-1 <5.0 <=20.0 (Negative) Units [facility] Comment: Test Performed by: [facility] [address] [place] [address] [employer] Producer: Corrie Lopez Ph.D.; CLIA# [id number] Testing performed by: [facility], [address] [place] [address]., [id number] Blood 03/08/2025 5:28 PM [employer] 03/08/2025 5:30 PM [employer] Domenic Wade LAB BLOOD ORDERABLES Final Re sult Performing Organization Address [facility]/ZIP Co de Phone Number NANCY [facility] [place] [employer] [place] [address] [facility] * Smooth muscle antibody, qualitative (03/08/2025 5:28 PM [employer]) Pathologist [facility] Anti-smooth muscle Negative Negative Comment:Testing performed by : [facility], [address] [facility], [place]., [address] Blood 03/08/2025 5:28 PM [employer] 03/08/2025 7:15 PM [employer] LAB BLOOD ORDERABLES Final Re sult NANCY [facility] [place] [place] [address] * Hepatitis panel, acute Blood (03/08/2025 5:28 PM [employer]) Pathologist [facility] Hep A IgM Nonreactive Nonreactive Comment: Interpretive Data: If Hep A IgM Ab is reported as Equivocal, a new sample should be drawn in two weeks for testing. Current interpretive data was last revised on 19. Hep B core IgM Nonreactive Nonreactive [facility] Comment: Interpretive Data If HepB Core IgM Ab is reported as Equivocal, a new sample should be drawn in two weeks for testing. Current interpretive data was last revised on 19. Hep C Ab Nonreactive Nonreactive [facility] Comment: Antibodies to HCV not detected. [...] last revised on 2019. HepBsAg Nonreactive Nonreactive [facility] Blood 03/08/2025 5:28 PM [employer] 03/08/2025 6:35 PM [employer] Domenic Wade DO LAB MICROBIOLOGY - GENERAL OR DERABLES Final Result [facility] [address] [facility] Department [place] [address] * Acetaminophen level (03/08/2025 5:28 PM [employer]) Acetaminophen <5 <=5 mcg/mL Comment: Interpretive Data Significant hepatic injury may occur and treatment with n-acetyl cysteine is generally recommended if the acetaminophen level exceeds: 150 mcg/mL at 4 hours after ingestion 75 mcg/mL at 8 hours after ingestion 38 mcg/mL at 12 hours after ingestion 19 mcg/mL at 16 hours after ingestion Consult toxicology or poison control ([phone]) for unknown ingestion time. Current interpretive data was last revised 2023. Testing performed by: [facility], [address] [place] [address]., [id number] Blood 03/08/2025 5:28 PM [employer] 03/08/2025 5:30 PM [employer] Domenic Delozier DO LAB BLOOD ORDERABLES Final Re sult Performing Organization Address [facility] Co de Phone Number [place] [address] [facility] [place] [address] * eGFR (03/07/2025 2:39 PM [employer]) eGFR >90 >=60 mL/min/1. 73 m2 Comment: [...] was last reviewed 2021. Testing performed by: [address] [address] Blood 03/07/2025 2:39 PM [employer] 03/07/2025 3:59 PM [employer] Domenic Wade LAB BLOOD ORDERABLES Final Re sult Performing Organization Address [facility] Co de Phone Number [facility] [address] [facility] [place] [address] * Iron profile w/ IBC (03/07/2025 2:39 PM [employer]) Pathologist [facility] Iron 82 50 - 150 mcg/dL Comment:Testing performed by : [address] [address] TIBC 327 250 - 400 mcg/dL NANCY Comment:Testing performed by : [address] [address] Transferrin saturation 25 20 - 50 % NANCY Comment:Testing performed by : [address] [address] Blood 03/07/2025 2:39 PM [employer] 03/07/2025 3:59 PM [employer] Domenic Wade DO LAB BLOOD ORDERABLES Final Re sult NANCY [address] [facility] Department [place] [address] * (ABNORMAL) Comprehensive metabolic panel (03/07/2025 2:39 PM [employer]) Sodium 139 135 - 145 mmol/L Comment:Testing performed by : [address] [address] Potassium, pl 4.0 3.3 - 4.9 mmol/L NANCY Comment:Testing performed by : [address] [address] Chloride 99 97 - 110 mmol/L NANCY Comment:Testing performed by : [address] [address] CO2 27 22 - 32 mmol/L NANCY Comment:Testing performed by : [address] [address] Anion gap 13 2 - 15 mmol/L NANCY Comment:Testing performed by : [address] [address] BUN 15 6 - 25 mg/dL NANCY Comment:Testing performed by : [address] [address] Creatinine 0.80 0.80 - 1.30 mg/dL NANCY Comment:Testing performed by : [address] [address] Glucose 81 70 - 199 mg/dL NANCY [...] classification and Diagnosis of Diabetes Diabetes Care 202; 46: S19-S40. Current interpretive data was last revised 2022. Testing performed by: [address] [address] Calcium 9.8 8.5 - 10.3 mg/dL NANCY Comment:Testing performed by : [address] [address] Bilirubin, total 0.6 0.1 - 1.2 mg/dL NANCY Comment:Testing performed by : [address] [address] Protein, pl 7.5 6.5 - 8.5 g/dL NANCY Comment:Testing performed by : [address] [address] Albumin 5.1(H) 3.5 - 5.0 g/dL NANCY Comment:Testing performed by : [address] [address] Alk phos 48 40 - 130 Units/L NANCY Comment:Testing performed by : [address] [address] ALT 114(H) 7 - 55 Units/L NANCY Comment:Testing performed by : [address] [address] AST 338(H) 10 - 50 Units/L NANCY Comment:Testing performed by : [address] [address] Blood 03/07/2025 2:39 PM [employer] 03/07/2025 3:59 PM [employer] us Domenic Wade DO LAB BLOOD ORDERABLES Final Re sult NANCY SOF[facility] [address] [facility] Department [place] [address] * eGFR (02/28/2025 3:30 PM CDT) eGFR [...] was last reviewed 2021. Testing performed by: [address] [address] Blood 02/28/2025 3:30 PM CDT 02/28/2025 3:38 PM CDT Domenic Wade LAB BLOOD ORDERABLES Final Re sult Performing Organization Address [facility] Co de Phone Number [address] [place] [address] * Thyroid Function Walton (02/28/2025 3:30 PM CDT) Pathologist [facility] TSH 1.01 0.30 - 4.20 mcIUnit/mL Comment:Testing performed by : [address] [address] Blood 02/28/2025 3:30 PM CDT 02/28/2025 3:38 PM CDT Domenic ThayerUbiregitiffanie LAB BLOOD ORDERABLES Final Re sult Performing Organization Address City/[facility]/ZIP Co de Phone Number [address] [place] [address] * Lipid panel (02/28/2025 3:30 PM CDT) [facility] Signature Cholesterol 175 30 - 199 mg/dL Comment: [...] last revised on 2017. Testing performed by: [address] [address] Triglycerides 52 <=149 mg/dL [facility] Comment: Interpretive Data Ages < or = [...] last revised on 2017. Testing performed by: [address] [address] HDL 61 >=40 mg/dL NANCY Comment: Interpretive [...] last revised on 2017. Testing performed by: [address] [address] LDL, calculated 104 <=129 mg/dL NANCY SOFIA Comment: Interpretive Data Ages [...] NCEP Expert Panel. Circulation 2004;110:227 3. Nico Smith et al. ELIJAH Cardiol. 2019September 01;5(5):540-548. doi: 10.1001/[email or web address].2020.0013 Current Interpretive Data was last revised on 2023. Testing performed by: [address] [address] Non-HDL Cholesterol 114 mg/dL NANCY SOFIA Comment: [...] last revised on 2017. Testing performed by: [address] [address] Chol/HDL ratio 3 NANCY Comment:Testing performed by : [address] [address] Blood 02/28/2025 3:30 PM CDT 02/28/2025 3:38 PM CDT Domenic Mauro LAB BLOOD ORDERABLES Final Re sult NANCY SOFIA [address] [facility] Department [place] [address] * (ABNORMAL) Comprehensive metabolic panel (02/28/2025 3:30 PM CDT) Sodium 140 135 - 145 mmol/L Comment:Testing performed by : [address] [address] Potassium, pl 4.1 3.3 - 4.9 mmol/L NANCY Comment:Testing performed by : [address] [address] Chloride 103 97 - 110 mmol/L NANCY Comment:Testing performed by : [address] [address] CO2 27 22 - 32 mmol/L NANCY Comment:Testing performed by : [address] [address] Anion gap 10 2 - 15 mmol/L NANCY Comment:Testing performed by : [address] [address] BUN 13 6 - 25 mg/dL NANCY Comment:Testing performed by : [address] [address] Creatinine 0.80 0.80 - 1.30 mg/dL NANCY Comment:Testing performed by : [address] [address] Glucose 89 70 - 199 mg/dL NANCY [...] was last revised 2022. Testing performed by: [facility], [address] [place] [address]., [address] Calcium 9.4 8.5 - 10.3 mg/dL NANCY Comment:Testing performed by : [facility], [address] [place] [address]., [address] Bilirubin, total 0.5 0.1 - 1.2 mg/dL NANCY Comment:Testing performed by : [address] [address] Protein, pl 6.8 6.5 - 8.5 g/dL NANCY Comment:Testing performed by : [address] [address] Albumin 4.8 3.5 - 5.0 g/dL NANCY Comment:Testing performed by : [address] [address] [address] Alk phos 47 40 - 130 Units/L NANCY Comment:Testing performed by : [address] [address] ALT 86(H) 7 - 55 Units/L NANCY Comment:Testing performed by : [address] [address] AST 87(H) 10 - 50 Units/L NANCY Comment:Testing performed by : [address] [address] Blood 02/28/2025 3:30 PM CDT 02/28/2025 3:38 PM CDT us Domenic Wade DO LAB BLOOD ORDERABLES Final Re sult NANCY [address] [facility] Department of Laboratories [place], [place] [id number] * ECG 12 lead (02/28/2025 2:42 PM CDT) Domenic Wade DO ECG ORDERABLES Final Result from Last 3 Months Insurance R [facility] Care Teams Site Supervisor Relationship Specialty Start Date End Date Domenic Wade DO [address] [place] [address] PCP - General Family Medicine 02/28/25
--- OUTSIDE RECORDS SUMMARY | 2025-04-11 16:21 | XMS_ITS | Clinical Summary ---
Author Organization [email or web address] Address [address] [place] [address] Care Team Providers Care Waterproofer Name Role Phone Gen Garrett MD Primary Care Provider Source Comments [email or web address],non-owned Affiliates and Associated Physician Practices is amultiple site organization consisting of ambulatory clinics and hospital sitesin [place], [place], [place] and [place]. This disclosure is being madepursuant to the Care Everywhere program and may not contain all information available regarding this patient. Last updated 18.[email or web address] Allergies No known active allergies Medications * [...] Care Team (Late st Contact Info) Description 04/25/2025 1:30 PM MOLDING UTILITY WORKER Office Visit [facility] [address] [place] [address] LalaMireille, HAM MARKER-COMPLIANCE PROGRAM MANAGER [address] [place] [address] Health Maintenance Due Date Last Done Comments HIV SCREENING 2008 HEPATITIS C SCREENING 05/05/2011 DTAP/TDAP/TD VACCINES (1 - Tdap) 2012 HEPATITIS B VACCINE (1 of 3 - 19+ 3-dose series) 2012 HPV VACCINE (1 - 3-dose SCDM series) 2020 DEPRESSION SCREENING 05/04/2024 COVID-19 VACCINE (1 - 2024- season) 2025 INFLUENZA VACCINE (#1) 2025 , 03/26/2019, 02/26/2018, Additional history exists ZOSTER VACCINE (1 of 2) 2043 HIB VACCINE Aged Out No longer eligi ble based on patient's age to complete this topic MENINGOCOCCAL (Group B) VACCINE SHARED DECISION-MAKING Aged Out No longer eligible based on patient's age to complete this topic MENINGOCOCCAL GROUPS A/C/Y/W VACCINE Aged Out No longer eligible based on patient's age to complete this topic PNEUMOCOCCAL VACCINE Aged Out No long er eligible based on patient's age to complete this topic Insurance [facility] Care Teams Waterproofer Relationship Specialty Start Date End Date Gen Garrett MD PCP - General Family Medicine 07/28/18
--- OUTSIDE RECORDS SUMMARY | 2025-04-11 16:21 | XMS_ITS | Clinical Summary ---
Author Organization [facility] Address [address] [facility] [place] [address] Care Team Providers Care Tobacco Wetter Name Role Phone Gen Garrett MD Primary Care Provider [phone] Allergies No known active allergies Medications amphetamine-dex troamphetamine (ADDERALL XR) 30 MG 24 hr capsule TK 1 C PO ONCE D IN THE MORNING 0 07/31/2018 Active Active Problems Problem Noted Date Diagnosed Date Allergic reaction 09/23/2017 Attention deficit hyperactivity disorder 017 Immunizations Immunization Administration Dates Next Due Fluarix Quadrivalent Prefilled Syringe 7 PPD Test 08/20/2019,08/14/2018 Family History Relation Status Comments Father Alive Mother Alive Social History Tobacco Use Types Packs/Day Years Used Date Smoking Tobacco: Never Smokeless Tobacco: Never Sex and Gender Information Value Date Recorded Sex Assigned at Not on file Legal Sex Male 4:14 PM EDT Gender Identity Not on file Sexual Orientation Not on file Last Filed Vital Signs Vital Sign Reading Time Taken Comments Blood Pressure 124/74 01/03/2017 4:16 PM CDT Pulse 70 01/03/2017 4:16 PM CDT Temperature 37 C (98.6 F) 01/03/2017 4:16 PM CDT Respiratory Rate 16 01/03/2017 4:16 PM CDT Oxygen Saturation 98% 01/03/2017 4:16 PM CDT Inhaled Oxygen Concentration - - Weight 83.9 kg (185 lb) 01/03/2017 4:16 PM CDT Height 182.9 cm (6') 01/03/2017 4:16 PM CDT Body Mass Index 25.09 01/03/2017 4:16 PM CDT Plan of Treatment Not on file Medical Devices Not on file Care Teams Tobacco Wetter Relationship Specialty Start Date End Date Gen Garrett MD PCP - General Family Medicine 01/03/17
--- OUTSIDE RECORDS SUMMARY | 2025-04-11 16:21 | XMS_ITS | Clinical Summary ---
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 Gender Identity Not on file Sexual Orientation Not on file Last Filed Vital Signs Vital Sign Reading Time Taken Comments Blood Pressure 147/93 04/20/2020 6:09 PM INSURANCE VERIFICATION SPECIALIST Pulse 80 04/20/2020 6:09 PM INSURANCE VERIFICATION SPECIALIST Temperature 37 C (98.6 F) 04/20/2020 6:09 PM INSURANCE VERIFICATION SPECIALIST Respiratory Rate - - Oxygen Saturation 98% 04/20/2020 6:09 PM INSURANCE VERIFICATION SPECIALIST Inhaled Oxygen Concentration - - Weight 83.9 kg (185 lb) 04/20/2020 6:09 PM INSURANCE VERIFICATION SPECIALIST Height 182.9 cm (6') 04/20/2020 6:09 PM INSURANCE VERIFICATION SPECIALIST Body Mass Index 25.09 04/20/2020 6:09 PM INSURANCE VERIFICATION SPECIALIST Plan of Treatment Health Maintenance Due Date Last Done Comments DTAP/TDAP/TD VACCINES (1 - Tdap) 2012 HEPATITIS B VACCINES (1 of 3 - 19+ 3-dose series) 2012 INFLUENZA VACCINE (#1) 2024 01/03/2017, 2015 HPV VACCINES (No Doses Required) Completed Insurance OUT OF STATE Care Teams Family Medicine Physician Assistant Relationship Specialty Start Date End Date Gen Garrett MD [address] [place] [address] PCP - General 04/20/20
--- OUTSIDE RECORDS SUMMARY | 2025-04-11 16:21 | XMS_ITS | Encounter Summary ---
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 [employer] WRAPPING MACHINE TENDER * Telephone Encounter - Marge Spivey - 03/15/2025 2:47 PM CST Medical Records Request Request Type: Records Request Practice Will Complete What records are being requested:EKG 02/28/25 Who will the records be sent to (if being sent to another doctor, list the doctor's name and specialty)? [facility] outpatient surgery Date Needed: mauri Delivery Method: Fax Fax number to use for return of records: [phone] Additional Comments/Concerns: Jp with [facility] called stating patient has an upcoming procedure and they would like a copy of the EKG. Does the message need to be routed? Yes-Action Needed [employer] WRAPPING MACHINE TENDER documented in this encounter Plan of Treatment Not on file documented as of this encounter Visit Diagnoses Not on filedocumented in this encounter Care Teams Felt Strip Finisher Relationship Specialty Start Date End Date Domenic Wade DO [address] [facility] [address] [place] [address] PCP - General Family Medicine 02/28/25 documented as of this encounter
== END 2025-04-11 14:11 | disposition home or self-care (01) ==
LOC: ANHSURGERY 14:16
PROVIDERS: Anesthesiology; Visit Provider Urology
DX: R74.8 Abnormal levels of other serum enzymes (principal); Z01.818 Encounter for other preprocedural examination
CPT/HCPCS: 36415; 85610; 85730

== ENCOUNTER 2025-04-14 02:32 | Day surgery (SDC) | payer OTHER, SELFPAY ==
[2025-04-07 09:49] VITALS: BMI 25.7
--- NOTE | 2025-04-07 10:18 | PC.NURSE ---
[facility] has started construction of its new state of the art ER which will open Spring 2026. With this, we anticipate parking may be a challenge for some our surgical patients and families. Parking spaces are limited but are available for all Surgical, obstetrics, and ER patients sharing this lot. If you arrive and find you are having a hard time finding a parking space, please note that we understand the challenges, please drive around the hospital and park near Hospital Entrance 1. When you enter this entrance, you can ask a volunteer to direct or take you back to the surgical waiting area to check in. We appreciate everyone?s understanding of these expected challenges while we build for your future. Report to the Outpatient Waiting Room, entrance under the green pavilion located off [address], at time ___11:30AM___ on date ___04/14/25__. Planned Procedure Time: ___1:30PM____.? Time changes happen often and if your time is changed the preop area will call you the afternoon before. - You and your visitor will be asked to self-screen and do not enter if you have any COVID symptoms. Please call surgeon if you need to reschedule. - A mask is optional within the hospital at this time. Patients may have clear liquids (water, carbonated beverages, clear teas, apple juice) until 3 hours prior to surgery (10:30AM) with a maximum of 20 ounces. - No food from midnight until time of surgery and no smoking, or chewing tobacco (or any form of nicotine). No chewing gum, candy or mints. Take only the following medications with a SIP of water on the morning of surgery: __NONE DO NOT STOP ANY OF YOUR OTHER PRESCRIPTION MEDICATIONS PRIOR TO SURGERY EXCEPT THE FOLLOWING Hold all vitamins and supplements for 3 days per anesthesiologist. Medications to discontinue per physician ___HOLD IBUPROFEN PER DR MARLEY Date to take last dose Please no make-up, nail north k[place], hairspray, perfume, deodorant, or body powder the day of surgery.? No jewelry (including any body piercings) or valuables the day of surgery, leave them at home.? Please take a shower or bath the night before, or the morning of, surgery with an antibacterial soap.? Wear comfortable, loose fitting clothing.? Children are encouraged to wear pajamas. - Jewelry must be removed prior to entering the operating room.? Rings and piercings that are not removed may be cut off. - The hospital will not accept responsibility for valuables.? - Please leave all valuables, including medications, at home the day of surgery. If you are going home after surgery, a licensed laborer driver must drive you home.? - NO public transportation without another adult if you receive anesthesia. - We recommend that an adult stay with you for 24 hours following discharge. - We also recommend that you do not drive, make important decision, drink alcoholic beverages, or take any drugs that were not prescribed by your health care provider for at least 24 hours after your discharge time. Follow any additional instructions given to you from your surgeon. Telephone instructions given to ___PATIENT and asked if any additional questions and then verbalized understanding. Patient advised to call surgeon office or pre surgery nurse liaison [phone] if any additional questions.
[2025-04-14] VITALS (9 sets, daily range): BP systolic 112–137; BP diastolic 49–80; PULSE 46–77; RESP 12–14; TEMP 36.2–36.3; O2SAT 98–100
--- NOTE | ~2025-04-14 | XR_ITS ---
EXAMINATION: C-arm fluoroscopic assisted placement of stent right ureteric stent: DATE: 04/14/2025 INDICATION: Hydronephrosis. Calculus. TECHNIQUE: Fluoroscopic assistance was provided for placement of stent. Exposure time 13.2 seconds. COMPARISON: CT dated 03/23/2025 FINDINGS: Fluoroscopic image shows stent in place in the right ureter. Prior to the stent placement contrast was introduced into the pelvicalyceal system and ureter in retrograde fashion. IMPRESSION: 1. As mentioned above Reviewed, dictated and finalized at location T. INATION SAW OPERATOR IMPRESSION: 1. As mentioned above
--- OUTSIDE RECORDS SUMMARY | 2025-04-14 02:34 | XMS_ITS | Clinical Summary ---
Author Organization [facility] Address [address] [facility] [place] [address] Care Team Providers Care Casing Tier Name Role Phone Gen Garrett MD Primary Care Provider [phone] Allergies No known active allergies Medications amphetamine-dex [...] Medical Devices Not on file Care Teams Casing Tier Relationship Specialty Start Date End Date Gen Garrett MD PCP - General Family Medicine 01/03/17
--- OUTSIDE RECORDS SUMMARY | 2025-04-14 02:34 | XMS_ITS | Clinical Summary ---
Author Organization 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 Gender Identity Not on file Sexual Orientation Not on file Last Filed Vital Signs Vital Sign Reading Time Taken Comments Blood Pressure 147/93 04/20/2020 6:09 PM ENTRY LEVEL PROGRAMMER Pulse 80 04/20/2020 6:09 PM ENTRY LEVEL PROGRAMMER Temperature 37 C (98.6 F) 04/20/2020 6:09 PM ENTRY LEVEL PROGRAMMER Respiratory Rate - - Oxygen Saturation 98% 04/20/2020 6:09 PM ENTRY LEVEL PROGRAMMER Inhaled Oxygen Concentration - - Weight 83.9 kg (185 lb) 04/20/2020 6:09 PM ENTRY LEVEL PROGRAMMER Height 182.9 cm (6') 04/20/2020 6:09 PM ENTRY LEVEL PROGRAMMER Body Mass Index 25.09 04/20/2020 6:09 PM ENTRY LEVEL PROGRAMMER Plan of Treatment Health Maintenance Due Date Last Done Comments DTAP/TDAP/TD VACCINES (1 - Tdap) 2012 HEPATITIS B VACCINES (1 of 3 - 19+ 3-dose series) 2012 INFLUENZA VACCINE (#1) 2024 01/03/2017, 2015 HPV VACCINES (No Doses Required) Completed Insurance OUT OF STATE Care Teams Disabilities Caregiver Relationship Specialty Start Date End Date Gen Garrett MD [address] [place] [address] PCP - General 04/20/20
--- OUTSIDE RECORDS SUMMARY | 2025-04-14 02:34 | XMS_ITS | Clinical Summary ---
Author Organization [facility] Address [address] [facility] [address] [place] [phone] Phone Care Team Providers Care Tunnel Drier Operator Name Role Phone JeovanyDomenic garner Primary Care Provider [phone] Allergies Active Allergy Reactions Criticality Noted Date Comments Wasp Venom Swelling High 11/29/2019 Medications dextroamphetamine -amphetamine XR (ADDERALL XR) 30 mg 24 hr capsuleIndication s:Attention deficit hyperactivity disorder (ADHD), combined type Take 1 capsule (30 mg total) by mouth every morning 30 capsule 0 Active Additional Information Patient not taking.Reported on 02/28/2025 ASHWAGANDHA ROOT EXTRACT ORAL Take by mouth Act regis telmisartan (MICARDIS) 20 mg tabletIndications :Essential hypertension Take 1 tablet (20 mg total) by mouth daily 90 tablet 3 5 026 Active ketorolac (TORADOL) 10 mg tablet Take 1 tablet (10 mg total) by mouth every 6 (six) hours as needed for pain 20 tablet 5 Active tamsulosin (FLOMAX) 0.4 mg extended release capsule Take 1 capsule (0.4 mg total) by mouth daily 14 capsule 5 Active oxyCODONE (ROXICODONE) 5 mg immediate release tabletIndications :Pain Take 1 tablet (5 mg total) by mouth every 6 (six) hours as needed for pain 8 tablet 5 Active Active Problems Problem Noted Date Diagnosed [...] mg total) by mouth daily Thyroid Function Larue; Future Lipid panel; Future Comprehensive metabolic panel; Future ECG 12 lead Basic metabolic panel; Future ADHD (attention deficit hype ractivity disorder), combined type 04/16/2015 Encounters Date Type Department Care Team Description 04/04/[address] [address] Domenic Wade DO verify cancellation of appointment 03/15/[address] [address] Domenic Wade DO Medical Records Request 03/13/[address] [address] Domenic Wade DO 03/10/2025 10:18 AM HARDBOARD COATING MACHINE OPERATOR - 03/10/2025 12:15 PM HARDBOARD COATING MACHINE OPERATOR Emergency [address] [address] Transaminitis (Primary Dx); Hydronephrosis, unspecified hydronephrosis type Discharge Disposition: Discharge to home or self care 03/10/2025 8:11 AM HARDBOARD COATING MACHINE OPERATOR - 03/10/2025 11:59 PM HARDBOARD COATING MACHINE OPERATOR Hospital Encounter [address] [address] Elevated LFTs Discharge Disposition: Discharge to home or self care 03/10/2025 Results Follow-Up [address] [address] Domenic Wade DO US RUQ, Acetaminophen level, Liver/kidney microsome type 1 antibody, Additional followed-up results: 2 03/08/2025 5:05 PM HARDBOARD COATING MACHINE OPERATOR Lab [facility] Lab [address] [place] [address] Elevated LFTs 03/08/2025 Results Follow-Up [address] [phone] Domenic Wade DO Comprehensive metabolic panel, eGFR 03/07/2025 2:35 PM HARDBOARD COATING MACHINE OPERATOR Lab [facility] Lab [address] [place] [address] Elevated LFTs 03/01/2025 Results Follow-Up [address] [address] Domenic Wade DO Comprehensive metabolic panel, Lipid panel, Thyroid Function Larue, eGFR 02/28/2025 3:15 PM CDT Lab [facility] [address] [place] [id number] Essential hypertension 02/28/2025 2:30 PM CDT Office Visit [address] [address] Domenic Wade DO Annual physical exam (Primary Dx); Essential hypertension; Screening for lipid disorders from Last 3 Months Immunizations Immunization Administration Dates Next Due Influenza, Quadrivalent, Spl it, Intramuscular 03/26/2019,02/20/2016 Influenza, Quadrivalent, Spl it, Preservative Free, Intramuscular 03/26/2019,02/26/2018,01/03/2017 Influenza, Unspecified 02/01/2025(Deferr ed: Patient Refused),02/02/2024 PPD TEST 08/20/2019,08/14/2018 Surgical History Surgery Date Site/Laterality Comments TONSILLECTOMY/ADENOIDECTOMY 1998 KIDNEY STONE SURGERY 2015 Family History Medical History Relation Name Comments [...] Industry Job Start Date Job End Date Pocketed [employer] Not on file Not on file Not on file Last Filed Vital Signs Vital Sign Reading Time Taken Comments Blood Pressure 131/85 03/10/2025 12:00 PM HARDBOARD COATING MACHINE OPERATOR Pulse 52 03/10/2025 12:00 PM HARDBOARD COATING MACHINE OPERATOR Temperature 36.8 C (98.2 F) 03/10/2025 9:05 AM HARDBOARD COATING MACHINE OPERATOR Respiratory Rate 18 03/10/2025 12:00 PM HARDBOARD COATING MACHINE OPERATOR Oxygen Saturation 100% 03/10/2025 12:00 PM HARDBOARD COATING MACHINE OPERATOR Inhaled Oxygen Concentration - - Weight 86.2 kg (190 lb) 03/10/2025 9:20 AM HARDBOARD COATING MACHINE OPERATOR Height 180.3 cm (5' 11) 02/28/2025 2:14 [...] PELVIS W CONTRAST ED 03/10/2025 10:02 AM HARDBOARD COATING MACHINE OPERATOR URINALYSIS, MICROSCOPIC ONLY STAT 03/10/2025 9:26 AM HARDBOARD COATING MACHINE OPERATOR URINALYSIS AND REFLEX TO MICROSCOPIC AND CULTURE STAT 03/10/2025 9:26 AM HARDBOARD COATING MACHINE OPERATOR EGFR STAT 03/10/2025 9:23 AM HARDBOARD COATING MACHINE OPERATOR DIFFERENTIAL AUTO STAT 03/10/2025 9:2 3 AM HARDBOARD COATING MACHINE OPERATOR LIPASE STAT 03/10/2025 9:23 AM HARDBOARD COATING MACHINE OPERATOR COMPREHENSIVE METABOLIC PANEL STAT 03/10/2025 9:23 AM HARDBOARD COATING MACHINE OPERATOR CBC WITH AUTO DIFFERENTIAL STAT 03/10/2025 9:23 AM HARDBOARD COATING MACHINE OPERATOR US RUQ Schedule Routine, Read Routine (OP Routine) 03/10/2025 9:11 AM HARDBOARD COATING MACHINE OPERATOR Elevated LFTs SMOOTH MUSCLE ANTIBODY, QUALITATIVE Routine 03/08/2025 5:28 PM HARDBOARD COATING MACHINE OPERATOR Elevated LFTs LIVER/KIDNEY MICROSOME TYPE 1 AB Routine 03/08/2025 5:28 PM HARDBOARD COATING MACHINE OPERATOR Elevated LFTs ACETAMINOPHEN LEVEL Routine 03/08/2025 5 :28 PM HARDBOARD COATING MACHINE OPERATOR Elevated LFTs HEPATITIS PANEL, ACUTE Routine 03/08/2025 5:28 PM HARDBOARD COATING MACHINE OPERATOR Elevated LFTs IRON PROFILE W/ IBC Routine 03/07/2025 2 :39 PM HARDBOARD COATING MACHINE OPERATOR Elevated LFTs EGFR Routine 03/07/2025 2:39 PM HARDBOARD COATING MACHINE OPERATOR Elevated LFTs COMPREHENSIVE METABOLIC PANEL Routine 03/07/2025 2:39 PM HARDBOARD COATING MACHINE OPERATOR Elevated LFTs EGFR Routine 02/28/2025 3:30 PM CDT Essential hypertension THYROID FUNCTION CASCADE Routine 02/28/2025 3:30 PM CDT Essential hypertension LIPID PANEL Routine 02/28/2025 3:30 PM CDT Essential hypertension COMPREHENSIVE METABOLIC PANEL Routine 02/28/2025 3:30 PM CDT Essential hypertension ECG 12-LEAD Routine 02/28/2025 2:42 PM CDT Essential hypertension from Last 3 Months Results * CT Abdomen Pelvis W Contrast (03/10/2025 10:02 AM HARDBOARD COATING MACHINE OPERATOR) Anatomical Region Laterality Modality Body N/A Computed Tomogra phy 03/10/2025 10:1 8 AM HARDBOARD COATING MACHINE OPERATOR Impressions 03/10/2025 10:18 AM HARDBOARD COATING MACHINE OPERATOR 1. Mild right hydronephrosis and hydroureter. No distal ureteral calculus seen. 2. Extensive bilateral urolithiasis, the largest a calculus right renal pelvis 1.7 seen with mild urothelial enhancement. 3. Few small colonic diverticula, no evidence of acute diverticulitis. Electronically signed by: Sylvester Petty M.D. Narrative 03/10/2025 10:18 AM HARDBOARD COATING MACHINE OPERATOR EXAM DESCRIPTION: CT ABDOMEN PELVIS W CONTRAST [...] signed by: Sylvester Petty M.D. T[facility]ha [facility] [place] Final Re sult * (ABNORMAL) Urinalysis reflex to microscopic and culture Urine (03/10/2025 9:26 AM HARDBOARD COATING MACHINE OPERATOR) Color, ur Straw Yellow Clarity, ur Cloudy(A) Clear NANCY SOFIA Specific gravity, ur 1.016 1.003 - 1.030 [facility] pH, urine 7.0 [facility] Comment: Interpretive Data U rine pH is affected by diet, medications, systemic acid-base disturbances, and renal tubular function. pH may affect urinary stone formation. For example, urine pH below 6.0 may help reduce the tendency for calcium phosphate stones and pH greater than 6.0 may reduce the tendency for uric acid stone formation. Source: [facility] Current Interpretive Data was last revised on 2017 Protein, ur ql Negative Negative [facility] Glucose, ur ql Negative Negative [facility] Ketones, ur Trace Negative [facility] Bilirubin, ur Negative Negative [facility] Blood, ur 3+(A) Negative [facility] Urobilinogen, ur <2.0 <2.0 mg/dL [facility] Nitrite, ur Negative Negative [facility] Leukocyte esterase, ur Negative Negative [facility] UA reflex comment Reflex to microscopic UA will be performed. [facility] Urine 03/10/2025 9:26 AM HARDBOARD COATING MACHINE OPERATOR 03/10/2025 9:28 AM HARDBOARD COATING MACHINE OPERATOR Tosha AYALA LAB MICROBIOLOGY - GENERAL ORDERABLES Final Result Performing Organization Address [facility] de Phone Number [address] [address] * (ABNORMAL) Urinalysis, microscopic only (03/10/2025 9:26 AM HARDBOARD COATING MACHINE OPERATOR) WBC, ur 0-5 0 - 5 /HPF RBC, ur >50(A) 0 - 2 /HPF [facility] Mucous, ur Present(A) [facility] Culture Reflex Comment Reflex conditions for urine culture (WBC >10) not met. [facility] Urine 03/10/2025 9:26 AM HARDBOARD COATING MACHINE OPERATOR 03/10/2025 9:28 AM HARDBOARD COATING MACHINE OPERATOR Tosha AYALA LAB URINE ORDERABLES Final Result Performing Organization Address [facility] Co de Phone Number [address] [phone] * eGFR (03/10/2025 9:23 AM HARDBOARD COATING MACHINE OPERATOR) [facility] eGFR >90 >=60 mL/min/1. 73 m2 [...] last reviewed 2021. Blood 03/10/2025 9:23 AM HARDBOARD COATING MACHINE OPERATOR 03/10/2025 9:28 AM HARDBOARD COATING MACHINE OPERATOR Tosha AYALA LAB BLOOD ORDERABLES Final Result [facility] [address] [facility] Department [place] [address] * Differential, auto (03/10/2025 9:23 AM HARDBOARD COATING MACHINE OPERATOR) [facility] Neutrophil abs 3.32 1.50 - 6.50 K/cumm Imm gran abs 0.02 0.00 - 0.10 K/cumm [facility] Lymphocyte abs 1.95 0.80 - 3.30 K/cumm [facility] Monocyte abs 0.53 0.20 - 0.80 K/cumm [facility] Eosinophil abs 0.09 0.00 - 0.50 K/cumm [facility] Basophil abs 0.06 0.00 - 0.10 K/cumm [facility] Neutrophil pct 55.6 % [facility] Comment: Interpretive Data Percent cell count reference ranges are not reported, since discordance with absolute values may lead to misinterpretation of CBC data. Current Interpretive Data was last revised on 2017. Imm gran pct 0.3 % [facility] Comment: Interpretive Data Percent cell count reference ranges are not reported, since discordance with absolute values may lead to misinterpretation of CBC data. Current Interpretive Data was last revised on 2017. Lymphocyte pct 32.7 % [facility] Comment: Interpretive Data Percent cell count reference ranges are not reported, since discordance with absolute values may lead to misinterpretation of CBC data. Current Interpretive Data was last revised on 2017. Monocyte pct 8.9 % [facility] Comment: Interpretive Data Percent cell count reference ranges are not reported, since discordance with absolute values may lead to misinterpretation of CBC data. Current Interpretive Data was last revised on 2017. Eosinophil pct 1.5 % [facility] Comment: Interpretive Data Percent cell count reference ranges are not reported, since discordance with absolute values may lead to misinterpretation of CBC data. Current Interpretive Data was last revised on 2017. Basophil pct 1.0 % [facility] Comment: Interpretive Data Percent cell count reference ranges are not reported, since discordance with absolute values may lead to misinterpretation of CBC data. Current Interpretive Data was last revised on 2017. Blood 03/10/2025 9:23 AM HARDBOARD COATING MACHINE OPERATOR 03/10/2025 9:28 AM HARDBOARD COATING MACHINE OPERATOR Tosha AYALA LAB BLOOD ORDERABLES Final Result [facility] [address] [facility] Department [place] [address] * CBC with auto differential (03/10/2025 9:23 AM HARDBOARD COATING MACHINE OPERATOR) WBC 5.97 3.80 - 9.90 K/cumm Hgb 15.7 13.0 - 17.5 g/dL [facility] Hct 47.6 38.9 - 50.3 % [facility] Plt 219 150 - 400 K/cumm [facility] MPV 10.6 9.1 - 12.3 fL [facility] RBC 5.26 4.30 - 5.80 M/cumm [facility] MCV 90.5 81.3 - 96.4 fL [facility] MCH 29.8 27.1 - 33.3 pg [facility] MCHC 33.0 32.3 - 35.7 g/dL [facility] RDW CV 12.7 11.1 - 14.9 % [facility] RDW SD 42.1 35.7 - 48.1 fL [facility] NRBC abs 0.00 0.00 - 0.01 K/cumm [facility] Blood Venous blood specimen / Unknown 03/10/2025 9:23 AM HARDBOARD COATING MACHINE OPERATOR 03/10/2025 9:28 AM HARDBOARD COATING MACHINE OPERATOR Tosha AYALA LAB BLOOD ORDERABLES Final Result Performing Organization Address [facility] Co de Phone Number [address] [place] [address] * Lipase (03/10/2025 9:23 AM HARDBOARD COATING MACHINE OPERATOR) [facility] Lipase 20 10 - 99 Units/L Blood Venous blood specimen / Unknown 03/10/2025 9:23 AM HARDBOARD COATING MACHINE OPERATOR 03/10/2025 9:28 AM HARDBOARD COATING MACHINE OPERATOR Tosha AYALA LAB BLOOD ORDERABLES Final Result Performing Organization Address [facility] de Phone Number [address] [place] [address] * (ABNORMAL) Comprehensive metabolic panel (03/10/2025 9:23 AM HARDBOARD COATING MACHINE OPERATOR) [facility] Sodium 140 135 - 145 mmol/L Potassium, pl 4.3 3.3 - 4.9 mmol/L [facility] Chloride 103 97 - 110 mmol/L [facility] CO2 27 22 - 32 mmol/L [facility] Anion gap 10 2 - 15 mmol/L [facility] BUN 16 6 - 25 mg/dL [facility] Creatinine 0.87 0.80 - 1.30 mg/dL [facility] Glucose 99 70 - 199 mg/dL [facility] Comment: Interpretive Data Fasting glucose >/= [...] 2022. Calcium 9.5 8.5 - 10.3 mg/dL [facility] Bilirubin, total 0.6 0.1 - 1.2 mg/dL [facility] Protein, pl 7.1 6.5 - 8.5 g/dL [facility] Albumin 4.7 3.5 - 5.0 g/dL [facility] Alk phos 46 40 - 130 Units/L [facility] ALT 107(H) 7 - 55 Units/L [facility] AST 185(H) 10 - 50 Units/L [facility] Blood 03/10/2025 9:23 AM HARDBOARD COATING MACHINE OPERATOR 03/10/2025 9:28 AM HARDBOARD COATING MACHINE OPERATOR us Tosha AYALA LAB BLOOD ORDERABLES Final Result NANCY [address] [facility] Department [place] [address] * US RUQ (03/10/2025 9:11 AM HARDBOARD COATING MACHINE OPERATOR) Anatomical Region Laterality Modality Abdomen N/A Ultrasound 03/10/2025 9:13 AM HARDBOARD COATING MACHINE OPERATOR Impressions 03/10/2025 9:13 AM HARDBOARD COATING MACHINE OPERATOR 1. No evidence of acute abnormality. 2. Echogenic right renal calculi measuring up to 1.1 cm. Electronically signed by: Sylvester Petty M.D. Narrative 03/10/2025 9:13 AM HARDBOARD COATING MACHINE OPERATOR EXAM DESCRIPTION: US RUQ REASON FOR STUDY: [...] microsome type 1 antibody (03/08/2025 5:28 PM HARDBOARD COATING MACHINE OPERATOR) LKM-1 <5.0 <=20.0 (Negative) Units Ryan ref Lab Comment: Test Performed by: [facility] [address] [place] [address] An/Sqq 89(V)15 [employer] System Journeyman: Corrie Lopez Ph.D.; CLIA# [id number] Testing performed by: [facility], [address] [place] [address]., [address] Blood 03/08/2025 5:28 PM HARDBOARD COATING MACHINE OPERATOR 03/08/2025 5:30 PM HARDBOARD COATING MACHINE OPERATOR [employer] LAB BLOOD ORDERABLES Final Re sult [address] [place] [address] [facility] * Smooth muscle antibody, qualitative (03/08/2025 5:28 PM HARDBOARD COATING MACHINE OPERATOR) Anti-smooth muscle Negative Negative Comment:Testing performed by : [facility], [address] [place]., [address] Blood 03/08/2025 5:28 PM HARDBOARD COATING MACHINE OPERATOR 03/08/2025 7:15 PM HARDBOARD COATING MACHINE OPERATOR [employer] LAB BLOOD ORDERABLES Final Re sult [address] [place] [address] * Hepatitis panel, acute Blood (03/08/2025 5:28 PM HARDBOARD COATING MACHINE OPERATOR) Hep A IgM Nonreactive Nonreactive Comment: Interpretive [...] on 19. Hep C Ab Nonreactive Nonreactive NANCY Comment: Antibodies to HCV not detected. Does [...] last revised on 2019. HepBsAg Nonreactive [facility] Blood 03/08/2025 5:28 PM HARDBOARD COATING MACHINE OPERATOR 03/08/2025 6:35 PM HARDBOARD COATING MACHINE OPERATOR Domenic Wade DO [facility] MICROBIOLOGY - GENERAL OR DERABLES Final Result Performing Organization Address [facility] Co de Phone Number [place] [phone] [facility] [email or web address] [address] * Acetaminophen level (03/08/2025 5:28 PM HARDBOARD COATING MACHINE OPERATOR) Acetaminophen <5 <=5 mcg/mL Comment: Interpretive Data Significant hepatic injury may occur and treatment with n-acetyl cysteine is generally recommended if the acetaminophen level exceeds: 150 mcg/mL at 4 hours after ingestion 75 mcg/mL at 8 hours after ingestion 38 mcg/mL at 12 hours after ingestion 19 mcg/mL at 16 hours after ingestion Consult toxicology or poison control ([phone]) for unknown ingestion time. Current interpretive data was last revised 2023. Testing performed by: [facility], [address] [place] [address]., [address] Blood 03/08/2025 5:28 PM HARDBOARD COATING MACHINE OPERATOR 03/08/2025 5:30 PM HARDBOARD COATING MACHINE OPERATOR Domenic Wade [facility] BLOOD ORDERABLES Final Re sult Performing Organization Address [facility] Co de Phone Number [place] [phone] [facility] [place] [address] * eGFR (03/07/2025 2:39 PM HARDBOARD COATING MACHINE OPERATOR) eGFR >90 >=60 mL/min/1. 73 m2 Comment: [...] was last reviewed 2021. Testing performed by: [address] [address] Blood 03/07/2025 2:39 PM HARDBOARD COATING MACHINE OPERATOR 03/07/2025 3:59 PM HARDBOARD COATING MACHINE OPERATOR us Domenic Wade DO LAB BLOOD ORDERABLES Final Re sult NANCY [address] [facility] Department [place] [address] * Iron profile w/ IBC (03/07/2025 2:39 PM HARDBOARD COATING MACHINE OPERATOR) Pathologist [facility] Iron 82 50 - 150 mcg/dL Comment:Testing performed by : [address] [address] TIBC 327 250 - 400 mcg/dL NANCY SOFIA Comment:Testing performed by : [address] [address] Transferrin saturation 25 20 - 50 % NANCY SOFIA Comment:Testing performed by : [address] [address] Blood 03/07/2025 2:39 PM HARDBOARD COATING MACHINE OPERATOR 03/07/2025 3:59 PM HARDBOARD COATING MACHINE OPERATOR Domenic Mauro LAB BLOOD ORDERABLES Final Re sult NANCY SOFIA [address] [facility] Department [place] [address] * (ABNORMAL) Comprehensive metabolic panel (03/07/2025 2:39 PM HARDBOARD COATING MACHINE OPERATOR) Sodium 139 135 - 145 mmol/L Comment:Testing performed by : [address] [address] Potassium, pl 4.0 3.3 - 4.9 mmol/L NANCY Comment:Testing performed by : [address] [address] Chloride 99 97 - 110 mmol/L NANCY Comment:Testing performed by : [address] [address] CO2 27 22 - 32 mmol/L NANCY Comment:Testing performed by : [address] [address] Anion gap 13 2 - 15 mmol/L NANCY Comment:Testing performed by : [address] [address] BUN 15 6 - 25 mg/dL NANCY Comment:Testing performed by : [address] [address] Creatinine 0.80 0.80 - 1.30 mg/dL NANCY Comment:Testing performed by : [address] [address] Glucose 81 70 - 199 mg/dL NANCY [...] was last revised 2022. Testing performed by: [facility], [address] [place] [address]., [address] Calcium 9.8 8.5 - 10.3 mg/dL NANCY Comment:Testing performed by : [address] [address] Bilirubin, total 0.6 0.1 - 1.2 mg/dL NANCY Comment:Testing performed by : [address] [address] Protein, pl 7.5 6.5 - 8.5 g/dL NANCY Comment:Testing performed by : [address] [address] Albumin 5.1(H) 3.5 - 5.0 g/dL NANCY Comment:Testing performed by : [address] [address] Alk phos 48 40 - 130 Units/L NANCY Comment:Testing performed by : [address] [address] ALT 114(H) 7 - 55 Units/L NANCY Comment:Testing performed by : [address] [address] AST 338(H) 10 - 50 Units/L NANCY Comment:Testing performed by : [address] [address] Blood 03/07/2025 2:39 PM HARDBOARD COATING MACHINE OPERATOR 03/07/2025 3:59 PM HARDBOARD COATING MACHINE OPERATOR us Domenic Wade DO LAB BLOOD ORDERABLES Final Re sult NANCY [address] [facility] Department [place] [address] * eGFR (02/28/2025 3:30 [...] was last reviewed 2021. Testing performed by: [address] [address] Blood 02/28/2025 3:30 PM CDT 02/28/2025 3:38 PM CDT Domenic [employer] DO LAB BLOOD ORDERABLES Final Re sult Performing Organization Address [facility] de Phone Number [address] [email or web address] [address] * Thyroid Function Larue (02/28/2025 3:30 PM CDT) TSH 1.01 0.30 - 4.20 mcIUnit/mL Comment:Testing performed by : [address] [address] Blood 02/28/2025 3:30 PM CDT 02/28/2025 3:38 PM CDT Domenic [employer] [facility] Gem[facility]o LAB BLOOD ORDERABLES Final Re sult Performing Organization Address [facility] de Phone Number [address] [email or web address] [address] * Lipid panel (02/28/2025 3:30 PM CDT) [...] last revised on 2017. Testing performed by: [address] [address] Triglycerides 52 <=149 mg/dL NANCY Comment: Interpretive [...] last revised on 2017. Testing performed by: [address] [address] HDL 61 >=40 mg/dL NANCY Comment: Interpretive [...] last revised on 2017. Testing performed by: [address] [address] LDL, calculated 104 <=129 mg/dL NANCY Comment: [...] 3. Nico Smith et al. ELIJAH Cardiol. 2020 September 01;5(5):540-548. doi: 10.1001/[email or web address] Current Interpretive Data was last revised on 2023. Testing performed by: [address] [address] Non-HDL Cholesterol 114 mg/dL NANCY SOFIA Comment: [...] last revised on 2017. Testing performed by: [address] [address] Chol/HDL ratio 3 NANCY SOFIA Comment:Testing performed by : [address] [address] Blood 02/28/2025 3:30 PM CDT 02/28/2025 3:38 PM CDT us Domenic Wade DO LAB BLOOD ORDERABLES Final Re sult NANCY SOFIA [address] [facility] [place] [place] [address] * (ABNORMAL) Comprehensive metabolic panel (02/28/2025 3:30 PM CDT) Sodium 140 135 - 145 mmol/L Comment:Testing performed by : [address] [address] Potassium, pl 4.1 3.3 - 4.9 mmol/L NANCY Comment:Testing performed by : [address] [address] Chloride 103 97 - 110 mmol/L NANCY Comment:Testing performed by : [address], [place]., [address] CO2 27 22 - 32 mmol/L NANCY Comment:Testing performed by : [address] [address] Anion gap 10 2 - 15 mmol/L NANCY Comment:Testing performed by : [address] [address] BUN 13 6 - 25 mg/dL NANCY Comment:Testing performed by : [address], [place]., [address] Creatinine 0.80 0.80 - 1.30 mg/dL NANCY Comment:Testing performed by : [address] [address] Glucose 89 70 - 199 mg/dL NANCY [...] was last revised 2022. Testing performed by: [address] [address] Calcium 9.4 8.5 - 10.3 mg/dL NANCY Comment:Testing performed by : [address], [place]., [address] Bilirubin, total 0.5 0.1 - 1.2 mg/dL NANCY Comment:Testing performed by : [facility], [address] [place] [address]., [id number] Protein, pl 6.8 6.5 - 8.5 g/dL NANCY Comment:Testing performed by : [facility], [address] [place] [address]., [id number] Albumin 4.8 3.5 - 5.0 g/dL NANCY Comment:Testing performed by : [address] [address] Alk phos 47 40 - 130 Units/L NANCY Comment:Testing performed by : [address] [address] ALT 86(H) 7 - 55 Units/L NANCY Comment:Testing performed by : [address] [address] AST 87(H) 10 - 50 Units/L NANCY Comment:Testing performed by : [facility], [address] [place] [address]., [id number] Blood 02/28/2025 3:30 PM CDT 02/28/2025 3:38 PM CDT Domenic Wade DO LAB BLOOD ORDERABLES Final [facility] [address] [facility] Department [place] [address] * ECG 12 lead (02/28/2025 2:42 PM CDT) Domenic Wade DO ECG ORDERABLES Final Result from Last 3 Months Insurance [facility] Care Teams Tunnel Drier Operator Relationship Specialty Start Date End Date Domenic Wade DO [address] [place] [address] PCP - General Family Medicine 02/28/25
--- OUTSIDE RECORDS SUMMARY | 2025-04-14 02:34 | XMS_ITS | Clinical Summary ---
Author Organization [facility] [place] Address [address] [place] [address] Care Team Providers Care Performing Artist Name Role Phone Gen Garrett MD Primary Care Provider Source Comments [facility] [place],non-owned Affiliates and Associated Physician Practices is amultiple site organization consisting of ambulatory clinics and hospital sitesin [place], [place], [place] and [place]. This disclosure is being madepursuant to the Care Everywhere program and may not contain all information available regarding this patient. 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 [place] [address] Health Maintenance Due Date Last [...] patient's age to complete this topic Insurance [facility] Care Teams Performing Artist Relationship Specialty Start Date End Date Gen Garrett MD PCP - General Family Medicine 07/28/18
--- NOTE | 2025-04-14 08:56 | WPDHPUPDATE1 ---
History and Physical Update Update Date/Time: 04/14/25 08:56 History and Physical has been reviewed, including an updated exam of the patient. There are NO changes in the patient's condition. Plan cystoscopy, right ureteroscopy, laser lithotripsy, stone extraction, stent placement Risks, benefits, and alternatives have been discussed and questions answered. Patient agrees to proceed with procedure.
--- NOTE | 2025-04-14 12:52 | P.PNAN_ITS ---
Anes - Initial Pre Proc Eval Procedure: Operation Date: 04/14/25 11:30 Proposed Procedures p Cystoscopy, Right Ureteroscopy, Possible Right Retrograde Pyelogram, Possible Right Stone Extraction, Possible Right Stent Removal and Replacement, Possible Holmium Laser - Shyla Donaldson MD Date/Time: 04/14/25 12:52 Surgeon: Shyla Donaldson MD Pre Op Diagnosis: right kidney stone Patient Data Age: 29 Gender: M Height: 1.83 m Weight: 86 kg Last Vital Signs Temp 36.3 C L 04/14/25 09:45 Pulse 59 L 04/14/25 09:45 Resp 14 04/14/25 09:45 BP 130/72 04/14/25 09:45 Pulse Ox 100 04/14/25 09:45 O2 Del Method Room Air 04/14/25 09:45 Allergies Allergy/AdvReac Type Severity Reaction Status Date / Time No Known Allergies Allergy Verified 04/14/25 10:08 Home Medications ?Medication ?Instructions ?Recorded ?Confirmed ?Type tamsulosin 0.4 mg capsule 0.4 mg PO DAILY 03/15/2509/25 History telmisartan 20 mg tablet 20 mg PO DAILY 03/15/2509/25 History ibuprofen 400 mg tablet 400 mg PO Q6H PRN pain #20 t abs 03/22/25 04/14/25 Rx oxybutynin chloride 5 mg tablet 5 mg PO TID PRN bladde r spasms #20 03/22/25 04/07/25 Rx tabs docusate sodium 100 mg tablet 100 mg PO BID PRN consti pation 04/07/25 04/07/25 History Patient hx anesthesia problems: none Family hx anesthesia problems: none Results Review: All pre-operative results and documents have been reviewed as part of the pre- operative evaluation. [facility] Past Medical History Medical History Urolithiasis Family History Family History Other No significant family history Social History Social History Smoking status: Never smoker Alcohol intake: current Drinks per week: 1 Substance use: never Lack of Transportation: No Lack of Food: Never True Current Housing: I Have Housing Concerned About Future Housing: No Difficulty Paying Gas/Electric Bills: No Difficulty Paying for Meds: No Currently Unemployed: No Education: Master's Degree or Higher Difficulty w/ Childcare or Family Care: No Living arrangements: with family Additional living arrangements comments: [facility] Spiritual care concerns: No Anes - Eval Final PreProcedure Day of Procedure 04/14/25 12:52 Patient weight: normal Heart: regular rate and rhythm Lungs: clear to auscultation Airway: Mallampati scale class II Neurological: alert and oriented Last oral intake: >/= 8 hours ASA classification: II Emergent: no Anesthetic plan: proceed Anesthesia type and monitoring: general LMA and standard monitoring Results Review: All pre-operative results and documents have been reviewed as part of the pre- operative evaluation. Informed Consent: The patient's anesthetic plan and its attendant risks and benefits were discussed with the patient/family/POA. Questions were solicited and answers provided to the satisfaction of the patient/family/POA.
[2025-04-14] MEDS: ceFAZolin 2 GM in SODIUM CHLORIDE 0.9% IV 50 ML 100 ML IVPB (13:06)
--- NOTE | 2025-04-14 15:04 | S_PTH ---
PATIENT: Libra Kapoor LOC: [facility] U#:[id number] AGE/SX: 29/M ROOM: RE04/14/[address]: Shyla Donaldson MD : 1995 BED: DIS: 04/14/2025 SPEC #: [id number] RECD: 04/17/25 07:52 STATUS: MONY REQ #: [id number] GAUTAM: 04/14/25 15:[address]: Shyla Donaldson DEPT: [facility] Surgical RECD BY: Sierra Willis Tissues: A - Stone Procedures: Gross Exam Level 1 Crystalline Analysis
[2025-04-14] MEDS: LACTATED RINGERS 1,000 ML 30 ML IV CONT (15:10)
[2025-04-14] MEDS: fentaNYL CITRATE INJ (*CRX) 100 MCG/2 ML VIAL 25 MCG IV PUSH ×2 (15:36→15:38)
[2025-04-14] MEDS: oxyCODONE HCL (*CRX) 5 MG TAB IR PO (16:21)
[2025-04-14] MEDS: ONDANSETRON HCL ODT 4 MG TABLET PO (17:08)
--- NOTE | 2025-04-14 17:55 | P.OP_ITS ---
Procedure Note - Detailed Date of Procedure 04/14/25 Pre-op Diagnosis Right ureteral and right renal stones Post-op Diagnosis Same Procedure Performed Cystoscopy, right retrograde pyelogram, right ureteroscopy laser lithotripsy, stone extraction, stent exchange Surgeon Shyla Donaldson MD Anesthesia General Findings Right proximal ureteral stone with associated edema, multiple renal stone fragments Description of Procedure The patient was correctly identified informed consent was obtained. He was taken to the operating room and placed in the dorsal lithotomy position. He was prepped and draped in the standard fashion. Intravenous antibiotics were administered within 1 hour of the procedure start and bilateral SCDs were placed for DVT prophylaxis. Rigid cystoscopy was performed. Bladder mucosa appeared. There was expected edema at the right ureteral orifice. The stent was identified grasped and pulled to the meatus. Through the stent a Sensor guidewire was passed into the kidney followed by a 12/14 [place] ureteral access sheath. The proximal ureter was too narrow to accept the sheath and therefore an 11/13 [place] clear path tract suction ureteral access sheath was placed. A stone was identified in the proximal ureter noted to be associated with ureteral edema his mom and narrowing at that area. Stone is fragmented with holmium laser. The fragments were suctioned via the sheath. The ureteroscope was then passed into the kidney and multiple stone fragments were noted in the upper calices. There were Balwinder's plaques in the mid calyx that were treated with holmium laser. All the significant fragments were suctioned via the ureteral access sheath. Basket stone extraction was also performed. Once the collecting system appeared free of stoned of significant size, the ureteral access sheath was removed visualizing the ureter in its entirety upon removal. There were no injuries noted. The ureteroscope was then passed to ensure no stone migration of any fragments and a stone was noted in the proximal ureter. This was further fragmented with holmium laser and retrieved with the basket. Under direct vision a 6 [place] x 28 cm ureteral stent was passed with the proximal end coiling within the kidney and the distal end within the bladder. The bladder was then drained visualizing the distal end of the stent cystoscopically during bladder drainage. The patient tolerated the procedure well. Implants 6Fr x28cm ureteral stent Estimated Blood Loss 0 Complications None Disposition PACU
== END 2025-04-14 17:29 | disposition home or self-care (01) ==
PROVIDERS: Visit Provider Urology
PROC: (CPT 52352; principal; 2025-04-14 11:30)
DX: N20.2 Calculus of kidney with calculus of ureter (principal)
CPT/HCPCS: 52356; 74420; 82365; 88300; J0690; A9270; C1769; C2617; J2250; J2270; J2704; J3010; J7120